=== PATIENT | male | born 1950 | race Hispanic/Latino ===

== ENCOUNTER 2017-03-06 08:29 | Inpatient (IN) | payer MEDICARE, BC ==
[2017-03-05 09:32] VITALS: BMI 35.9
[2017-03-06 09:28] LABS: BASO % 0.6 % (0.0-2.0); EOS # 0.2 K/uL (0.0-0.7); EOS % 3.5 % (0.0-4.0); HEMATOCRIT 43.2 % (35.0-51.0); LYMPH # 1.4 K/uL (1.0-4.3); LYMPH % 30.2 % (20.0-40.0); MEAN CORPUSCULAR HEMOGLOBIN 28.7 pg (27.0-31.0); MEAN CORPUSCULAR HGB CONC 32.8 g/dL (33.0-37.0); MONO # 0.5 K/uL (0.0-0.8); MONO % 9.8 % (0.0-10.0); NRBC % 0.1 % (0.0-2.0); RED CELL DISTRIBUTION WIDTH 13.5 % (11.5-14.5); WHITE BLOOD COUNT 4.8 K/uL (4.8-10.8)
--- NOTE | 2017-03-06 09:28 | RAD ---
HISTORY: STAT CXR DONE IN [facility] COMPARISON: 07/01/2016 TECHNIQUE: Chest PA and lateral FINDINGS: LUNGS: Blunted left costophrenic angle suggestive for small effusion with adjacent left basilar airspace opacity which may represent mild atelectasis and or infiltrate versus additional etiology. Clinical correlation. Mild venous congestion. Mild nodularity in the lateral aspect of the left midlung zone. PLEURA: As above. CARDIOVASCULAR: Normal. OSSEOUS STRUCTURES: Degenerative changes in the spine with paravertebral osteophytes. VISUALIZED UPPER ABDOMEN: Normal. OTHER FINDINGS: None. IMPRESSION: Blunted left costophrenic angle suggestive for small effusion with adjacent left basilar airspace opacity which may represent mild atelectasis and or infiltrate versus additional etiology. Clinical correlation. Mild venous congestion. Mild nodularity in the lateral aspect of the left midlung zone.
[2017-03-06 09:33] LABS: CHLORIDE 97 mmol/L (98-107); POTASSIUM 4.4 mmol/L (3.6-5.2); SODIUM 137 mmol/L (132-148)
[2017-03-06 09:36] LABS: BLOOD UREA NITROGEN 31 mg/dL (9-20); CARBON DIOXIDE 31 mmol/L (22-30); GFR AFRICAN-AMERICAN > 60; GLUCOSE,RANDOM 161 mg/dL (75-110)
[2017-03-06 09:37] LABS: CALCIUM 8.5 mg/dl (8.6-10.4); MEAN CELL VOLUME 87.4 fL (80.0-94.0)
[2017-03-06] MEDS ORDERED: cefTRIAXone IV 1 gm in Dextros 50 ML IVPB ONE (11:02)
[2017-03-06] MEDS ORDERED: Etomidate 20 mg/10ml Inj IV ONE ×2 (11:02→11:40)
[2017-03-06] MEDS ORDERED: Lactated Ringer's 1,000 ML IV ONE (11:02)
[2017-03-06] MEDS ORDERED: HYDROmorphone 0.5 mg/0.5 ml ISec IVP PRN (12:11)
--- NOTE | 2017-03-06 14:36 | HP ---
A very pleasant gentleman, 66. 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 He is currently actively on a morphine pump and he actively takes OxyContin for breakthrough pain. He is here today for a TURP. He is in urinary retention. Some of it is obstructive visualization of the prostate and some of it was from all the medication he takes as well. We have discussed options. However, he does have a visually occlusive prostate and, therefore, after discussing options we are bringing him to the hospital today for a TURP. I have discussed with him the option and the possibility for a PVP GreenLight laser TURP, but given h is medical history and the postulation for cancellation and the risks associated with this, we are pl anning for just a regular electrical TURP. I discussed the benefits. I discussed also the other concern about tissue typing, and that is where we can get tissue. So after discussing those options, he is here for a TURP. I have explained to the patient also the plan that he will not have fluid when he ejaculates. I disc ussed risks of bladder neck contractures. We discussed very many options. After all those options a re discussed, he is here. I discussed also pain management in the postoperative period and my concer ns. Socially, he has a significant other female that I have spoken to. He has a daughter or maybe even o ther children, but I do not know their exact relationship. 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 He seems to be in a better control situation now, but sti ll very heavily dependent on narcotic use, but he does have pain management rather than other doctors , including myself, writing him medications. MEDICATIONS: See the list on the chart. ALLERGIES: ____. REVIEW OF SYSTEMS: Listed above, otherwise noncontributory. SOCIAL HISTORY: Essentially unremarkable other than mentioned above. PHYSICAL EXAMINATION: GENERAL: Well-nourished male, in no apparent distress. VITAL SIGNS: Within normal limits. LUNGS: ____. ABDOMEN: Overall soft, nontender. No flank mass appreciated. GENITOURINARY: He has a normal phallus without discharge. No testicular mass. RECTAL: A 30-gram prostate, soft and smooth. LABORATORIES: See chart. DIAGNOSES: Urinary retention, voiding dysfunction, decreased flow of stream, incomplete bladder empt sarah, and really a lot of irritative and obstructive complaints. We discussed options with the patient. I explained to the patient that some of it may be obstructive prostate, some of it is medications. He does not see himself getting off the medications, although the hope is just by opening the prostate, just even almost like in a female with Crede maneuvers, he will be able to empty his bladder better and hopefully do better. I did discuss with him the expecta tion that he should not expect to ejaculate fluid; orgasm should not be changed. He is not overly ac tive anyway. After discussing all those options with the patient, he is here today for a TURP. In preparation, I explained to him our plans, our risks, benefits and alternatives. In preparation, also he has seen Paul Zelaya (traffic court magistrate). He has also seen Dr. Garcia (his medical doctor) in terms of judson felix, etc. So after all this, the plan is as follows. The patient will be given antibiotic prophyl axis. The patient will be given anesthesia and then we will bring him to the OR for a TURP. Then fu rther plans will follow. Will see what the pathology shows as well. Johnny Rayo MD cc: [id number] TT: 03/06/2017 14:35:45 mn
[2017-03-06] MEDS ORDERED: Lactated Ringer's 500 ML IV ONE (16:50)
--- NOTE | 2017-03-06 17:07 | OP ---
PROCEDURE DATE: 03/06/2017 PREOPERATIVE DIAGNOSES: Urinary retention, voiding dysfunction, decreased flow of stream, nocturia, incomplete bladder emptying, irritative and obstructive complaints. POSTOPERATIVE DIAGNOSES: Urinary retention, voiding dysfunction, decreased flow of stream, nocturia, incomplete bladder emptying, irritative and obstructive complaints. PROCEDURE: TURP, transurethral resection of the prostate with electrocautery. COMPLICATIONS: There were no complications. SPECIMENS: Prostate chips. BLOOD LOSS: Less than 25 mL. FINDINGS: Ureteral orifice identified pre and post-procedure. Post-procedure the patient is nicely w garcia open. We have a great resection. The findings were normal anterior urethra, no strictures. The veru is visually occlusive, only about 2-3 cm. (As mentioned in the history and physical and as I discussed with the patient, some of the component of voiding complaints are related to his use of narcotics, etc. Some of it is also obstructive prost ate by visualization.) After discussing all the options, he is here now above. The procedure itself went very well. I do want to mention that at the patient's right side, left side of the camera, towards the end, ther e was some venous bleeding that we tried cauterizing. Again, there is not much into the system and i t is not water, so it is not a problem either way, but there is some venous bleeding that we noted th at was just towards the end on the patient's right side, but at the termination of the procedure, see below, actually in the report, the bleeding actually is very well controlled and the urine by way of the irrigant is extremely clear by way of CBI. DESCRIPTION OF PROCEDURE: After obtaining informed consent and patient placed on the table, routine monitors placed, I explained to the patient the risks. Specifically discussed the possibility that i t will not work and it may not improve his urinary symptoms given the fact that some of it is not all obstructive, some of it may be related to his medication use. We explained that and we also explained the ejaculatory dysfunction. The patient placed on table, routine monitors placed. Timeouts were called to confirm the patient. The patient was given antibiotic prophylaxis via the urethra. We used continuous flow resectoscope. First we used the obturator to insert. We then inspected carefully. There were no strictures or scars. visually occlusive. We identified the ureteral orifice. Clear efflux. The bladder was inspected. We now turned our attention to the bladder neck, between 5 and 7. We then turned our attention back to the veru. Throughout the case, we kept identifying our landmarks. We opened the bladder neck widely between 5 and 7 and then subsequently go 7 and 11, and then 11 to 1, and we are wide open from the bladder neck out to the prostate. We now turned our attention anteriorly, from 11 to 1, and opened this nice and widely. Now further inspection reveals essentially no bleeding and he is fairly wide open. I decided to do a little extra resecting down to fiber, between 5 and 1 and between 7 and 11. As I do so, on the 7 to 11 side, there is a little bleeding noted, so I further inspected, I tried ca uterizing this. There is still a little blood. After inspecting carefully, I decided the best will be just to insert a Zayas catheter, will give clarisa e traction. When we do this, we irrigated out all the chips and further inspect. There is really actually less b leeding. We got control when we had cauterized. Everything is intact. All chemehuevi landmarks are garcia ntified. We irrigated all the chips out. I inserted a Zayas catheter, 24-Kazakh, with about 60 mL in the balloon and put on mild traction and I keep it a little full. We put the patient in lithotomy position and from lithotomy to supine position, connected to traction , and then I irrigated and it irrigates really nice and clearly. The patient brought to recovery room in stable condition, having tolerated the procedure without comp lication. ADDENDUM: What we are going to do is observe the patient, will see how he does and then we will see if we can discharge him home or we will keep him in the hospital, depending on how much blood is ther e present. Further plans will follow. I will also make sure that we send copies to the various doctors that are consultants. Johnny Rayo MD cc: [phone] TT: 03/06/2017 17:07:11 richa
[2017-03-06 17:17] VITALS: RESP 20
--- NOTE | 2017-03-06 18:10 | CP.PCM.CON ---
History of Present Illness - History of Present Illness History of Present Illness: 66 yo male with hx DM HTN CHF A Fib Obesity Failed back with lumbar radiculopathy COPD and depression admitted post op s/p TURP awake alert denies fever or chest pain Review of Systems - Review of Systems All systems: reviewed and no additional remarkable complaints except - Constitutional Constitutional: As Per HPI - EENT Eyes: absent: As Per HPI, Blind Spots, Blurred Vision, Change in Vision, Decreased Night Vision, Diplopia, Discharge, Dry Eye, Exophthalmos, Floaters, Irritation, Itchy Eyes, Loss of Peripheral Vision, Pain, Photophobia, Requires Corrective Lenses, Sees Flashes, Spots in Vision, Tunnel Vision, Other Visual Disturbances, Loss of Vision, Other Ears: absent: As Per HPI, Decreased Hearing, Ear Discharge, Ear Pain, Tinnitus, Abnormal Hearing, Disequilibrium, Dizziness, Other Nose/Mouth/Throat: absent: As Per HPI, Epistaxis, Nasal Congestion, Nasal Discharge, Nasal Obstruction, Nasal Trauma, Nose Pain, Post Nasal Drip, Sinus Pain, Sinus Pressure, Bleeding Gums, Change in Voice, Dental Pain, Dry Mouth, Dysphagia, Halitosis, Hoarsness, Lip Swelling, Mouth Lesions, Mouth Pain, Odynophagia, Sore Throat, Throat Swelling, Tongue Swelling, Facial Pain, Neck Pain, Neck Mass, Other - Cardiovascular Cardiovascular: absent: As Per HPI, Acrocyanosis, Chest Pain, Chest Pain at Rest , Chest Pain with Activity, Claudication, Diaphoresis, Dyspnea, Dyspnea on Exertion, Edema, Irregular Heart Rhythm, Pain Radiating to Arm/Neck/Jaw, Leg Edema, Leg Ulcers, Lightheadedness, Orthopnea, Palpitations, Paroxysmal Nocturnal Dyspnea, Pedal Edema, Radiating Pain, Rapid Heart Rate, Slow Heart Rate, Syncope, Other - Respiratory Respiratory: absent: As Per HPI, Cough, Dyspnea, Hemoptysis, Dyspnea on Exertion , Wheezing, Snoring, Stridor, Pain on Inspiration, Chest Congestion, Excessive Mucous Production, Change in Mucous Color, Pain with Coughing, Other - Gastrointestinal Gastrointestinal: absent: As Per HPI, Abdominal Pain, Belching, Bloating, Change in Bowel Habits, Change in Stool Character, Coffee Ground Emesis, Constipation, Cramping, Diarrhea, Dyspepsia, Dysphagia, Early Satiety, Excessive Flatus, Fecal Incontinence, Heartburn, Hematemesis, Hematochezia, Loose Stools, Melena, Nausea, Odynophagia, Temesmus, Vomiting, Other - Genitourinary Genitourinary: As Per HPI - Musculoskeletal Musculoskeletal: absent: As Per HPI, Abnormal Gait, Arthralgias, Atrophy, Back Pain, Deformity, Joint Swelling, Limited Range of Motion, Loss of Height, Muscle Cramps, Muscle Weakness, Myalgias, Neck Pain, Numbness, Radiating Pain into Limb, Stiffness, Tingling, Other - Integumentary Integumentary: absent: As Per HPI, Acne, Alopecia, Bleeding Lesions, Change in Hair, Change in Nails, Change in Pigmentation, Changing Lesions, Dry Skin, Erythema, Furuncle, Hirsutism, Lesions, New Lesions, Non-Healing Lesions, Photosensitivity, Pruritus, Rash, Skin Pain, Skin Ulcer, Sores, Striae, Swelling , Unusual Bruising, Wounds, Jaundice, Other - Neurological Neurological: absent: As Per HPI, Abnormal Gait, Abnormal Hearing, Abnormal Movements, Abnormal Speech, Behavioral Changes, Burning Sensations, Confusion, Convulsions, Disequilibrium, Dizziness, Numbness, Focal Weakness, Frequent Falls , Headaches, Lack of Coordination, Loss of Vision, Memory Loss, Paresthesias, Radicular Pain, Restless Legs, Sensory Deficit, Syncope, Tingling, Tremor, Vertigo, Weakness, Other Visual Disturbances, Other - Psychiatric Psychiatric: absent: As Per HPI, Abnormal Sleep Pattern, Anhedonia, Anxiety, Auditory Hallucinations, Behavioral Changes, Change in Appetite, Change in Libido, Confusion, Depression, Difficulty Concentrating, Hallucinations, Homicidal Ideation, Hopelessness, Irritability, Memory Loss, Mood Swings, Panic Attacks, Paranoia, Suicidal Ideation, Visual Hallucinations, Tactile Hallucinations, Other - Endocrine Endocrine: absent: As Per HPI, Change in Body Appearance, Change in Libido, Cold Intolorance, Deepening of Voice, Excessive Sweating, Fatigue, Flushing, Heat Intolorance, Increase in Ring/Shoe/Hat Size, Palpitations, Polydipsia, Polyphagia, Polyuria, Other - Hematologic/Lymphatic Hematologic: absent: As Per HPI, Easy Bleeding, Easy Bruising, Lymphadenopathy, Other Past Patient History - Infectious Disease Hx of Infectious Diseases: None - Tetanus Immunizations Tetanus Immunization: Unknown - Past Medical History & Family History Past Medical History?: Yes - Past Social History Smoking Status: Never Smoked - CARDIAC Hx Cardiac Disorders: Yes (A FIB) Hx Cardia Arrhythmia: Yes Hx Congestive Heart Failure: Yes Hx Hypercholesterolemia: Yes Hx Hypertension: Yes - PULMONARY Hx Respiratory Disorders: Yes Hx Chronic Obstructive Pulmonary Disease (COPD): Yes Hx Pneumonia: Yes (10 YEARS AGO) Other/Comment: blockage in right bronchial tube - NEUROLOGICAL Hx Neurological Disorder: Yes (PERIPHERAL NEUROPATHY) Other/Comment: hand tremors DUE TO NERVES - HEENT Hx HEENT Problems: No - RENAL Hx Chronic Kidney Disease: No - ENDOCRINE/METABOLIC Hx Endocrine Disorders: Yes Hx Diabetes Mellitus Type 2: Yes - HEMATOLOGICAL/ONCOLOGICAL Hx Blood Disorders: No - INTEGUMENTARY Hx Dermatological Problems: No - MUSCULOSKELETAL/RHEUMATOLOGICAL Hx Musculoskeletal Disorders: Yes Hx Arthritis: Yes Hx Back Pain: Yes Hx Fractures: Yes ( RIBS RIGHT ELBOW) Hx Osteoarthritis: Yes (both knees) Hx Spinal Stenosis: Yes Hx Unsteady Gait: (uses a cane) Other/Comment: Chronic Pain. - GASTROINTESTINAL Hx Gastrointestinal Disorders: Yes Hx Pancreatitis: Yes - GENITOURINARY/GYNECOLOGICAL Hx Genitourinary Disorders: Yes (+LEGIONELLA IN THE URINE,FREQUENCY,) Hx Prostate Problems: Yes (BPH) - PSYCHIATRIC Hx Psychophysiologic Disorder: Yes Hx Depression: Yes Hx Substance Use: Yes (quit) - SURGICAL HISTORY Hx Surgeries: Yes Hx Arthroscopy: Yes (BILAT KNEES) Hx Musculoskeletal Surgery: Yes (LUMBAR LAMINECTOMY) Hx Open Reduction Internal Fixation: Yes (RIGHT ELBOW) Other/Comment: INSERTION PAIN CONTROL STIMULATOR LUMBAR SINCE REMOVED - ANESTHESIA Hx Anesthesia: Yes Hx Anesthesia Reactions: No Hx Malignant Hyperthermia: No Has any member of the family had a problem w/ anesthesia?: No Meds Allergies/Adverse Reactions: Allergies Allergy/AdvReac Type Severity Reaction Status Date / Time No Known Allergies Allergy Verified 07/04/16 18:53 - Medications Medications: Current Medications Bupropion HCl (Wellbutrin Xl) 300 mg PO DAILY [facility] Carvedilol (Coreg) 25 mg PO BID [facility] Diazepam (Valium) 10 mg PO BID PRN PRN Reason: Anxiety Digoxin (Lanoxin) 0.125 mg PO DAILY@1800 [facility] Docusate Sodium (Colace) 100 mg PO TID [facility] Duloxetine HCl (Cymbalta) 60 mg PO BID [facility] Famotidine (Pepcid) 20 mg PO BID [facility] Furosemide (Lasix) 40 mg PO BID [facility] Cefazolin Sodium/Dextrose (Ancef Iv 1 Gm Duplex) 1 gm in 50 mls @ 100 mls/hr IVPB Q8H [facility] Metformin HCl (Glucophage) 850 mg PO BID [facility] Pregabalin (Lyrica) 225 mg PO QID [facility] Primidone (Mysoline) 250 mg PO TID [facility] Rosuvastatin Calcium (Crestor) 10 mg PO HS [facility] Spironolactone (Aldactone) 25 mg PO DAILY [facility] Tamsulosin HCl (Flomax) 0.4 mg PO DAILY [facility] Physical Exam - Constitutional Appears: Non-toxic, Chronically Ill - Head Exam Head Exam: NORMOCEPHALIC - Eye Exam Eye Exam: PERRL. absent: Scleral icterus - ENT Exam ENT Exam: Mucous Membranes Dry, Normal External Ear Exam - Neck Exam Neck exam: Negative for: Lymphadenopathy - Respiratory Exam Respiratory Exam: Decreased Breath Sounds, Rhonchi - Cardiovascular Exam Cardiovascular Exam: REGULAR RHYTHM, +S1, +S2 - GI/Abdominal Exam GI & Abdominal Exam: Diminished Bowel Sounds, Soft. absent: Tenderness - Rectal Exam Rectal Exam: Deferred - Exam Exam: NORMAL INSPECTION - Extremities Exam Extremities exam: Negative for: calf tenderness, pedal edema - Back Exam Back exam: absent: CVA tenderness (L), CVA tenderness (R) - Neurological Exam Neurological exam: Alert, CN II-XII Intact, Oriented x3, Reflexes Normal - Psychiatric Exam Psychiatric exam: Normal Mood - Skin Skin Exam: Dry, Intact Results - Vital Signs Recent Vital Signs: Last Vital Signs Temp 97.7 F 03/06/17 17:16 Pulse 54 L 03/06/17 17:16 Resp 20 03/06/17 17:16 BP 157/70 H 03/06/17 17:16 Pulse Ox 96 03/06/17 17:16 - Labs Result Diagrams: 03/06/17 09:15 03/06/17 09:15 Labs: Laboratory Results - last 24 hr 03/06/17 03/06/17 03/06/17 09:15 09:15 09:15 WBC 4.8 RBC 4.95 Hgb 14.2 Hct 43.2 MCV 87.4 D MCH 28.7 MCHC 32.8 L RDW 13.5 Plt Count 82 L D MPV 9.0 Neut % (Auto) 55.9 Lymph % (Auto) 30.2 [place] % (Auto) 9.8 Eos % (Auto) 3.5 Baso % (Auto) 0.6 Neut # 2.7 Lymph # 1.4 [place] # 0.5 Eos # 0.2 Baso # 0.0 Differential Comment PT 11.3 INR 1.0 APTT 38 H Sodium 137 Potassium 4.4 Chloride 97 L Carbon Dioxide 31 H Anion Gap 13 BUN 31 H Creatinine 0.9 Est GFR ( Amer) > 60 Est GFR (Non-Af Amer) > 60 POC Glucose (mg/dL) Random Glucose 161 H Calcium 8.5 L 03/06/17 17:24 WBC RBC Hgb Hct MCV MCH MCHC RDW Plt Count MPV Neut % (Auto) Lymph % (Auto) [place] % (Auto) Eos % (Auto) Baso % (Auto) Neut # Lymph # [place] # Eos # Baso # Differential Comment PT INR APTT Sodium Potassium Chloride Carbon Dioxide Anion Gap BUN Creatinine Est GFR ( Amer) Est GFR (Non-Af Amer) POC Glucose (mg/dL) 144 H Random Glucose Calcium Assessment & Plan - Assessment and Plan (Free Text) Assessment: s/p TURP multiple comorbidities rx for pain monitor closely
[2017-03-06] MEDS: Digoxin 125 mcg (0.125 mg) Tab PO SCH (19:11)
[2017-03-06] MEDS: ceFAZolin IV 1 gm in Dextrose 1 GM/50 ML BAG IVPB SCH (19:15)
[2017-03-07] MEDS: ceFAZolin IV 1 gm in Dextrose 1 GM/50 ML BAG IVPB SCH ×3 (02:04→17:29)
[2017-03-07 07:58] LABS: BASO % 0.3 % (0.0-2.0); EOS # 0.2 K/uL (0.0-0.7); EOS % 2.6 % (0.0-4.0); HEMATOCRIT 41.7 % (35.0-51.0); LYMPH # 1.1 K/uL (1.0-4.3); MEAN CELL VOLUME 86.8 fL (80.0-94.0); MEAN CORPUSCULAR HEMOGLOBIN 28.6 pg (27.0-31.0); MEAN PLATELET VOLUME 8.7 fL (7.2-11.7); MONO # 0.7 K/uL (0.0-0.8); MONO % 9.7 % (0.0-10.0); RED CELL DISTRIBUTION WIDTH 13.3 % (11.5-14.5); WHITE BLOOD COUNT 6.8 K/uL (4.8-10.8)
[2017-03-07 07:59] LABS: CHLORIDE 93 mmol/L (98-107); POTASSIUM 4.3 mmol/L (3.6-5.2); SODIUM 135 mmol/L (132-148)
[2017-03-07 08:01] LABS: AST/SGOT 22 U/L (17-59); BILIRUBIN,TOTAL 0.7 mg/dL (0.2-1.3); CARBON DIOXIDE 37 mmol/L (22-30); GFR AFRICAN-AMERICAN > 60
[2017-03-07 08:02] LABS: ALB/GLOB RATIO 1.2 (1.0-2.1); ALKALINE PHOSPHATASE 61 U/L (38-126); ALT/SGPT 21 U/L (21-72); BLOOD UREA NITROGEN 21 mg/dL (9-20); CALCIUM 7.9 mg/dl (8.6-10.4); GLUCOSE,RANDOM 127 mg/dL (75-110); TOTAL PROTEIN 6.4 g/dL (6.3-8.3)
[2017-03-07] MEDS: buPROPion 150 mg/24 Hours XL Tab PO SCH (09:39)
--- NOTE | 2017-03-07 15:57 | CP.PCM.PN ---
Subjective - Date & Time of Evaluation Date of Evaluation: 03/07/17 Time of Evaluation: 08:00 - Subjective Subjective: pain well controlled no fever has not been out of bed yet cbi in progress await ANDREW martinez Objective - Vital Signs/Intake and Output Vital Signs (last 24 hours): Temp Pulse Resp BP Pulse Ox 98.4 F 67 20 139/71 94 L 03/07/17 07:00 03/07/17 07:00 03/07/17 07:00 03/07/17 09:41 03/07/17 07:00 Intake and Output: 03/07/17 03/07/17 06:59 18:59 Intake Total 1750 7500 Output Total 4050 8100 Balance -2300 -600 - Medications Medications: Current Medications Bupropion HCl (Wellbutrin Xl) 300 mg PO DAILY [facility] Last Admin: 03/07/17 09:39 Dose: 300 mg Carvedilol (Coreg) 25 mg PO BID [facility] Last Admin: 03/07/17 09:41 Dose: 25 mg Diazepam (Valium) 10 mg PO BID PRN PRN Reason: Anxiety Last Admin: 03/07/17 11:10 Dose: 10 mg Digoxin (Lanoxin) 0.125 mg PO DAILY@1800 [facility] Last Admin: 03/06/17 19:11 Dose: 0.125 mg Docusate Sodium (Colace) 100 mg PO TID [facility] Last Admin: 03/07/17 14:23 Dose: 100 mg Duloxetine HCl (Cymbalta) 60 mg PO BID [facility] Last Admin: 03/07/17 09:39 Dose: 60 mg Famotidine (Pepcid) 20 mg PO BID [facility] Last Admin: 03/07/17 09:40 Dose: 20 mg Furosemide (Lasix) 40 mg PO BID [facility] Last Admin: 03/07/17 09:40 Dose: 40 mg Hydromorphone HCl (Dilaudid) 2 mg PO Q6H PRN PRN Reason: Pain, severe (8-10) Last Admin: 03/07/17 06:50 Dose: 2 mg Cefazolin Sodium/Dextrose (Ancef Iv 1 Gm Duplex) 1 gm in 50 mls @ 100 mls/hr IVPB Q8H [facility] Last Admin: 03/07/17 10:58 Dose: 100 mls/hr Metformin HCl (Glucophage) 850 mg PO BID [facility] Last Admin: 03/07/17 09:39 Dose: 850 mg Pregabalin (Lyrica) 225 mg PO QID [facility] Last Admin: 03/07/17 14:23 Dose: 225 mg Primidone (Mysoline) 250 mg PO TID [facility] Last Admin: 03/07/17 14:23 Dose: 250 mg Rosuvastatin Calcium (Crestor) 10 mg PO HS [facility] Last Admin: 03/06/17 21:16 Dose: 10 mg Spironolactone (Aldactone) 25 mg PO DAILY [facility] Last Admin: 03/07/17 09:40 Dose: 25 mg Tamsulosin HCl (Flomax) 0.4 mg PO DAILY [facility] Last Admin: 03/07/17 09:40 Dose: 0.4 mg - Labs Labs: 03/07/17 07:36 03/07/17 07:36 PT 11.3 SECONDS (9.7-12.2) 03/06/17 09:15 INR 1.0 03/06/17 09:15 APTT 38 SECONDS (21-34) H 03/06/17 09:15 - Constitutional Appears: Non-toxic, Chronically Ill - Head Exam Head Exam: NORMOCEPHALIC - Eye Exam Eye Exam: PERRL. absent: Scleral icterus - ENT Exam ENT Exam: Mucous Membranes Dry, Normal External Ear Exam - Neck Exam Neck Exam: absent: Lymphadenopathy - Respiratory Exam Respiratory Exam: Decreased Breath Sounds, Rhonchi - Cardiovascular Exam Cardiovascular Exam: REGULAR RHYTHM, +S1, +S2 - GI/Abdominal Exam GI & Abdominal Exam: Distended, Soft. absent: Tenderness - Rectal Exam Rectal Exam: Deferred - Exam Exam: NORMAL INSPECTION - Extremities Exam Extremities Exam: absent: Calf Tenderness, Pedal Edema - Back Exam Back Exam: absent: CVA tenderness (L), CVA tenderness (R) - Neurological Exam Neurological Exam: Alert, Awake, Oriented x3 - Psychiatric Exam Psychiatric exam: Normal Mood - Skin Skin Exam: Dry Assessment and Plan (1) BPH (benign prostatic hyperplasia) Status: Acute (2) BPH (benign prostatic hyperplasia) Status: Acute (3) CHF (congestive heart failure) Status: Chronic (4) Chronic pain Status: Chronic (5) Diabetes mellitus Status: Chronic (6) HTN (hypertension) Status: Chronic - Assessment and Plan (Free Text) Assessment: cont rx as per urology
[2017-03-07 17:29] VITALS: PULSE 65
[2017-03-07] MEDS: Digoxin 125 mcg (0.125 mg) Tab PO SCH (17:29)
[2017-03-08] MEDS: ceFAZolin IV 1 gm in Dextrose 1 GM/50 ML BAG IVPB SCH ×2 (01:32→10:08)
[2017-03-08 01:42] VITALS: O2SAT 96
[2017-03-08] MEDS: buPROPion 150 mg/24 Hours XL Tab PO SCH (10:05)
[2017-03-08 13:55] VITALS: BP 108/63
--- NOTE | 2017-03-08 13:56 | CP.PCM.CON ---
History of Present Illness - History of Present Illness History of Present Illness: S/P TURP: 66 y/o male: well known to my partner Dr. Concepcion: Hx of NICM with interval improvement to normal, P. AFIB, DM, Hx of Chronic narcotic use due to OA HIP; hx of morphine pump; Depression, * normal stress test in 2014 PMHX: as above PSHX: as above, no PCI/CABG ROS: depression, minimally active due to AO SOCHX: no TOB, recreational drugs; hx of ETOH in past Today: c/o dec urination, minimal SOB; no fever or CP; NSR on EKG Review of Systems - Review of Systems All systems: reviewed and no additional remarkable complaints except Past Patient History - Infectious Disease Hx of Infectious Diseases: None - Tetanus Immunizations Tetanus Immunization: Unknown - Past Medical History & Family History Past Medical History?: Yes - Past Social History Smoking Status: Never Smoked - CARDIAC Hx Cardiac Disorders: Yes (A FIB) Hx Cardia Arrhythmia: Yes Hx Congestive Heart Failure: Yes Hx Hypercholesterolemia: Yes Hx Hypertension: Yes - PULMONARY Hx Respiratory Disorders: Yes Hx Chronic Obstructive Pulmonary Disease (COPD): Yes Hx Pneumonia: Yes (10 YEARS AGO) Other/Comment: blockage in right bronchial tube - NEUROLOGICAL Hx Neurological Disorder: Yes (PERIPHERAL NEUROPATHY) Other/Comment: hand tremors DUE TO NERVES - HEENT Hx HEENT Problems: No - RENAL Hx Chronic Kidney Disease: No - ENDOCRINE/METABOLIC Hx Endocrine Disorders: Yes Hx Diabetes Mellitus Type 2: Yes - HEMATOLOGICAL/ONCOLOGICAL Hx Blood Disorders: No - INTEGUMENTARY Hx Dermatological Problems: No - MUSCULOSKELETAL/RHEUMATOLOGICAL Hx Falls: No - GASTROINTESTINAL Hx Gastrointestinal Disorders: Yes Hx Pancreatitis: Yes - GENITOURINARY/GYNECOLOGICAL Hx Genitourinary Disorders: Yes (+LEGIONELLA IN THE URINE,FREQUENCY,) Hx Prostate Problems: Yes (BPH) - PSYCHIATRIC Hx Substance Use: Yes (Quit) - SURGICAL HISTORY Hx Surgeries: Yes Hx Arthroscopy: Yes (BILAT KNEES) Hx Musculoskeletal Surgery: Yes (LUMBAR LAMINECTOMY) Hx Open Reduction Internal Fixation: Yes (RIGHT ELBOW) Other/Comment: INSERTION PAIN CONTROL STIMULATOR LUMBAR SINCE REMOVED - ANESTHESIA Hx Anesthesia: Yes Hx Anesthesia Reactions: No Hx Malignant Hyperthermia: No Has any member of the family had a problem w/ anesthesia?: No Meds Allergies/Adverse Reactions: Allergies Allergy/AdvReac Type Severity Reaction Status Date / Time No Known Allergies Allergy Verified 07/04/16 18:53 - Medications Medications: Current Medications Bupropion HCl (Wellbutrin Xl) 300 mg PO DAILY [facility] Last Admin: 03/08/17 10:05 Dose: 300 mg Carvedilol (Coreg) 25 mg PO BID [facility] Last Admin: 03/08/17 10:06 Dose: 25 mg Diazepam (Valium) 10 mg PO BID PRN PRN Reason: Anxiety Last Admin: 03/07/17 11:10 Dose: 10 mg Digoxin (Lanoxin) 0.125 mg PO DAILY@1800 [facility] Last Admin: 03/07/17 17:29 Dose: 0.125 mg Docusate Sodium (Colace) 100 mg PO TID [facility] Last Admin: 03/08/17 10:06 Dose: 100 mg Duloxetine HCl (Cymbalta) 60 mg PO BID [facility] Last Admin: 03/08/17 10:05 Dose: 60 mg Famotidine (Pepcid) 20 mg PO BID [facility] Last Admin: 03/08/17 10:03 Dose: 20 mg Furosemide (Lasix) 40 mg PO BID [facility] Last Admin: 03/08/17 10:06 Dose: 40 mg Furosemide (Lasix) 20 mg IVP STAT STA Stop: 03/08/17 13:45 Hydromorphone HCl (Dilaudid) 2 mg PO Q6H PRN PRN Reason: Pain, severe (8-10) Last Admin: 03/07/17 06:50 Dose: 2 mg Cefazolin Sodium/Dextrose (Ancef Iv 1 Gm Duplex) 1 gm in 50 mls @ 100 mls/hr IVPB Q8H [facility] Last Admin: 03/08/17 10:08 Dose: 100 mls/hr Metformin HCl (Glucophage) 850 mg PO BID [facility] Last Admin: 03/08/17 10:05 Dose: 850 mg Pregabalin (Lyrica) 225 mg PO QID [facility] Last Admin: 03/08/17 10:05 Dose: 225 mg Primidone (Mysoline) 250 mg PO TID [facility] Last Admin: 03/08/17 10:05 Dose: 250 mg Rosuvastatin Calcium (Crestor) 10 mg PO HS [facility] Last Admin: 03/07/17 21:35 Dose: 10 mg Spironolactone (Aldactone) 25 mg PO DAILY [facility] Last Admin: 05/06/17 10:06 Dose: 25 mg Tamsulosin HCl (Flomax) 0.4 mg PO DAILY [facility] Last Admin: 03/08/17 10:06 Dose: 0.4 mg Physical Exam - Head Exam Head Exam: ATRAUMATIC, NORMAL INSPECTION, NORMOCEPHALIC - Eye Exam Eye Exam: EOMI, Normal appearance - ENT Exam ENT Exam: Normal Oropharynx - Neck Exam Neck exam: Positive for: Full Rom. Negative for: Tenderness, Thyromegaly - Respiratory Exam Respiratory Exam: Clear to Auscultation Bilateral, NORMAL BREATHING PATTERN. absent: Rales, Rhonchi, Wheezes - Cardiovascular Exam Cardiovascular Exam: REGULAR RHYTHM, +S1, +S2. absent: +S4 - GI/Abdominal Exam GI & Abdominal Exam: Normal Bowel Sounds, Soft. absent: Tenderness - Extremities Exam Extremities exam: Positive for: calf tenderness, pedal edema (trace B/L ) - Neurological Exam Neurological exam: Alert, Oriented x3 - Psychiatric Exam Psychiatric exam: Depressed - Skin Skin Exam: Normal Color, Warm (mild venous changes B/L LE) Results - Vital Signs Recent Vital Signs: Last Vital Signs Temp 98.4 F 03/07/17 23:45 Pulse 67 03/07/17 23:45 Resp 20 03/07/17 23:45 BP 118/65 03/08/17 10:06 Pulse Ox 96 03/07/17 23:45 - Labs Result Diagrams: 03/07/17 07:36 03/07/17 07:36 Labs: Laboratory Results - last 24 hr 03/07/17 03/07/17 03/08/17 16:44 21:29 07:51 POC Glucose (mg/dL) 210 H 229 H 135 H 03/08/17 11:58 POC Glucose (mg/dL) 171 H Assessment & Plan - Assessment and Plan (Free Text) Assessment: 1. S/P TURP 2. known NICM: with interval improvement in EF to near normal on medical therapy 3. Normal stress test 2015: No current CP 4. P. AFIB: xarelto held prior to TURP; H/H stable; no gross bleed seen in URINE 5. Mild congestion; 6. Stable HTN 7. elevated sugars plan; continue current Rx with coreg, dig, lasix, aldactone: --> suggest IV lasix 20 x1 --> F/U recc per urology regards d/c planning --> Suggest resume xarelto 1 day after d/c if ok with urology at same dose 20mg daily. --> F/U with Dr. concepcion as outpatient on Fridaymarch 11 at [facility].
[2017-03-08 16:03] VITALS: PULSE 74; TEMP 98
--- NOTE | 2017-03-08 17:32 | CP.PCM.PN ---
Subjective - Date & Time of Evaluation Date of Evaluation: 03/08/17 Time of Evaluation: 11:00 - Subjective Subjective: Alert, oriented, NAD. Objective - Vital Signs/Intake and Output Vital Signs (last 24 hours): Temp Pulse Resp BP Pulse Ox 98 F 74 20 108/63 96 03/08/17 08:00 03/08/17 08:00 03/08/17 08:00 03/08/17 13:54 03/08/17 08:00 Intake and Output: 03/08/17 03/08/17 06:59 18:59 Intake Total 770 890 Output Total 2800 1200 Balance -2030 -310 - Labs Labs: 03/07/17 07:36 03/07/17 07:36 PT 11.3 SECONDS (9.7-12.2) 03/06/17 09:15 INR 1.0 03/06/17 09:15 APTT 38 SECONDS (21-34) H 03/06/17 09:15 Assessment and Plan - Assessment and Plan (Free Text) Assessment: Patient post TURP cleared by DR Rayo discharged home on po cipro and flomax. Voiding well, no distress. Advised to follow up with cardiology and urologyast in 1 week.
--- NOTE | 2017-03-09 13:04 | PCM.URO ---
Urology Progress Note - General General: No Complaints, Tolerating Diet - Subjective Abdominal Pain: No Flank Pain: No Nausea: No Vomiting: No Voiding Well: No Hematuria: No Dsypnea: No Chest Pain: No Fever & Chills: No - Objective Intake & Output: Intake & Output 03/08/17 03/09/17 03/09/17 18:59 06:59 18:59 Intake Total 890 Output Total 1200 Balance -310 Intake: Intake, IV Amount 50 Right Hand 50 Oral 840 Output: Urine 1200 Urethral (Zayas) 300 Urine, Voided 900 Other: # Bowel Movements 0 Vital Signs: Vital Signs - 24 hr 03/08/17 13:54 Blood Pressure 108/63 - Physical Exam Abdominal Exam: Soft, Non-Tender, Non-Distended Bowel Sounds: Normal Back: No CVA Tenderness Genitalia: Without Inflammation Urinary Catheter Draining Well: Yes Urine Color: Clear Extremities: Normal: Bilateral - Male Phallus: Normal Testes: Normal: Bilateral - Plan Catheter Care: Yes Ambulation - Out of Bed: Yes Additional Information: IMP: PROGRESSING WELL - Date & Time of Note Date: 03/07/17 Time: 13:30
== END 2017-03-08 16:00 | disposition home or self-care (01) | DRG 713 ==
LOC: C.9S 08:29 → EDSTATUS 10:00 → C.6T 17:07
PROVIDERS: ADMIT Urology; ATTEND Urology
PROC: 0VT08ZZ Resection of Prostate, Via Natural or Artificial Opening Endoscopic (ICD-10-PCS; principal; 2017-03-06 10:00)
DX: N40.1 Benign prostatic hyperplasia with lower urinary tract symptoms (principal); I42.8 Other cardiomyopathies; I11.0 Hypertensive heart disease with heart failure; E11.42 Type 2 diabetes mellitus with diabetic polyneuropathy; I50.9 Heart failure, unspecified; R33.8 Other retention of urine; I48.91 Unspecified atrial fibrillation; J44.9 Chronic obstructive pulmonary disease, unspecified; M17.0 Bilateral primary osteoarthritis of knee; R39.12 Poor urinary stream; R26.81 Unsteadiness on feet; F32.9 Major depressive disorder, single episode, unspecified; Z87.01 Personal history of pneumonia (recurrent); Z79.4 Long term (current) use of insulin

== ENCOUNTER 2017-09-18 09:28 | Day surgery (SDC) | payer MEDICARE, BC ==
[2017-09-17 09:12] VITALS: BMI 38.7
[2017-09-18] MEDS ORDERED: Lidocaine 2% w Epi 1:100,000 Inj IJ ONE (10:58)
[2017-09-18] MEDS ORDERED: Bupivacaine-Epi 0.25%-1:200,000 PF Inj IJ ONE ×2 (10:59→11:15)
[2017-09-18 11:07] VITALS: O2SAT 95
[2017-09-18] MEDS ORDERED: Lactated Ringer's 1,000 ML IV ONE (11:20)
[2017-09-18] MEDS ORDERED: Sodium Chloride 0.9% 20 ML IV ONE (11:38)
[2017-09-18] MEDS ORDERED: Bacitracin 500 Units/gm Oint Foilpak UD ONE (11:39)
[2017-09-18 13:59] VITALS: BP 156/78; PULSE 55; RESP 16; TEMP 97.6
--- NOTE | 2017-09-18 21:50 | OP ---
PROCEDURE DATE: 09/18/2017 PREOPERATIVE DIAGNOSIS: Neoplasm in the occipital scalp. POSTOPERATIVE DIAGNOSIS: Neoplasm in the occipital scalp. PROCEDURE PERFORMED: Wide and deep excision, (radical resection of a 4 cm mass of the occipital scalp). SURGEON: Anand Amezcua MD TYPE OF ANESTHESIA: General. ESTIMATED BLOOD LOSS: 50 mL. POSTOPERATIVE CONDITION: Stable. DESCRIPTION OF PROCEDURE: Patient was taken to the operating room, and after the scalp was shaved and prepped, local anesthesia was administered. A generous elliptical incision was made surrounding the mass. It was dissected free down to the scalp aponeurosis and removed. Bleeding was controlled using the Bovie. A branch of the temporal artery was repaired with Prolene. The wound was irrigated with copious amounts of saline solution. Generous tissue flaps were raised superiorly and inferiorly, and a greater than 30 cm2 advancement flap closure was performed by widely mobilizing and using multiple layers of heavy Monocryl, subcuticular Monocryl, and skin clips. Patient tolerated the procedure well, returned to recovery room in stable condition. Anand Amezcua MD
== END 2017-09-18 13:35 | disposition home or self-care (01) ==
LOC: C.SDS 09:28
PROVIDERS: ATTEND Surgery
DX: C44.42 Squamous cell carcinoma of skin of scalp and neck (principal)

== ENCOUNTER 2018-01-20 08:05 | Observation (INO) | payer MEDICARE, BC ==
[2018-01-20 08:05] VITALS: BMI 38.7
[2018-01-20 09:11] LABS: BASO % 0.3 % (0.0-2.0); EOS % 0.4 % (0.0-4.0); HEMOGLOBIN 12.2 g/dL (12.0-18.0); LYMPH # 0.8 K/uL (1.0-4.3); LYMPH % 7.6 % (20.0-40.0); MEAN CORPUSCULAR HEMOGLOBIN 28.8 pg (27.0-31.0); MEAN CORPUSCULAR HGB CONC 33.5 g/dL (33.0-37.0); MEAN PLATELET VOLUME 8.7 fL (7.2-11.7); MONO # 0.8 K/uL (0.0-0.8); MONO % 7.3 % (0.0-10.0); NEUT # 9.1 K/uL (1.8-7.0); NEUT % 84.4 % (50.0-75.0); NRBC % 0.1 % (0.0-2.0); RBC 4.22 Mil/uL (4.40-5.90); RED CELL DISTRIBUTION WIDTH 15.5 % (11.5-14.5); WHITE BLOOD COUNT 10.8 K/uL (4.8-10.8)
[2018-01-20 09:22] LABS: ALB/GLOB RATIO 0.9 (1.0-2.1); ALBUMIN 3.4 g/dL (3.5-5.0); ALT/SGPT 23 U/L (21-72); AST/SGOT 23 U/L (17-59); BLOOD UREA NITROGEN 15 mg/dL (9-20); CALCIUM 8.7 mg/dl (8.6-10.4); GFR AFRICAN-AMERICAN > 60; GFR NON-AFRICAN AMERICAN > 60
[2018-01-20 09:25] LABS: PLATELET COUNT 121 K/uL (130-400)
[2018-01-20 09:32] LABS: B-TYPE NATRIURETIC PEPTIDE 658 pg/mL (0-900)
[2018-01-20 10:00] LABS: BANDS 8 % (0-2); TOTAL CELLS COUNTED 100
[2018-01-20 10:01] LABS: LYMPHOCYTE 5 % (20-40); MONOCYTE 6 % (0-10); NEUTROPHIL 81 % (50-75); PLATELET ESTIMATE SLIGHTLY DECREASED (NORMAL)
--- NOTE | 2018-01-20 10:15 | RAD ---
PROCEDURE: CHEST RADIOGRAPH, 1 VIEW HISTORY: chest pain COMPARISON: 03/06/2017 FINDINGS: LUNGS: Clear. PLEURA: Minimal blunting of left costophrenic angle, likely chronic. Possible pleural thickening versus chronic pleural effusion. CARDIOVASCULAR: Normal. OSSEOUS STRUCTURES: No significant abnormalities. VISUALIZED UPPER ABDOMEN: Normal. OTHER FINDINGS: None. IMPRESSION: Minimal blunting left costophrenic angle. No acute infiltrate
--- NOTE | 2018-01-20 10:18 | RAD ---
PROCEDURE: Right Knee Radiographs. HISTORY: knee replacement COMPARISON: None. FINDINGS: BONES: No acute fracture. Status post right knee arthroplasty. No evidence of prosthesis loosening. JOINTS: Status post arthroplasty JOINT EFFUSION: None. OTHER FINDINGS: None. IMPRESSION: Right knee arthroplasty. No evidence of loosening. Otherwise unremarkable
[2018-01-20] MEDS ORDERED: Iodixanol 320 MG/ML 100 ML BOTTLE IV ONE (10:49)
--- NOTE | 2018-01-20 10:50 | VASCLAB ---
PROCEDURE: Right Lower Extremity Venous Duplex Exam. HISTORY: Leg pain PRIORS: None. TECHNIQUE: Right common femoral, femoral, popliteal and posterior tibial, peroneal and great saphenous veins were evaluated. Flow was assessed with color Doppler, compressibility, assessment of phasic flow and augmentation response. Report prepared by EARL Wiley FINDINGS: RIGHT: 1. Common Femoral Vein: 1.1. Compressibility - Fully compressible: Thrombus - None: Flow - Phasic: Augmentation -Normal: Reflux - None. 2. Femoral Vein: 2.1. Compressibility - Fully compressible: Thrombus - None: Flow - Phasic: Augmentation -Normal: Reflux - None. 3. Popliteal Vein: 3.1. Compressibility - Fully compressible: Thrombus - None: Flow - Phasic: Augmentation -Normal: Reflux - None. 4. Posterior Tibial Vein: 4.1. Compressibility - Fully compressible: Thrombus - None: Flow - Phasic: Augmentation -Normal: Reflux - None. 5. Peroneal Vein: 5.1. Compressibility - Fully compressible: Thrombus - None: Flow - Phasic: Augmentation -Normal: Reflux - None. 6. Great Saphenous Vein: 6.1. Compressibility - Fully compressible: Thrombus -None: Flow - Phasic: Augmentation - Normal: Reflux - None. OTHER FINDINGS: IMPRESSION: No evidence of deep or superficial vein thrombosis of the right lower extremity with excellent venous flow. Normal valve function noted of the right side. Normal venous flow noted in the left common femoral vein.
--- NOTE | 2018-01-20 11:05 | C.PDOC ---
History Of Present Illness 67-year-old male, had a knee replacement 12/[address] Adalid Lopez in [place], states [facility] and stayed there until 01/10, since then, he has been having ongoing knee pain unrelieved with 30mg of Oxycodone. Patient also developed intermittent chest pressure associated with shortness of breath and decreased appetite, resulting in him coming to ED today for evaluation Time Seen by Provider: 01/20/18 08:12 Chief Complaint (Nursing): Chest Pain History Per: Patient History/Exam Limitations: no limitations Onset/Duration Of Symptoms: Days Current Symptoms Are (Timing): Still Present Severity: Moderate Past Medical History Reviewed: Historical Data, Nursing Documentation, Vital Signs Vital Signs: Last Vital Signs Temp 98.1 F 01/20/18 17: Pulse 77 01/20/18 17:26 Resp 20 01/20/18 17:26 BP 133/74 01/20/18 17:26 Pulse Ox 96 01/20/18 17:26 - Medical History PMH: Arthritis, Atrial Fibrillation, Back Problems, Cardia Arrhythmia (atrial fib), CHF, COPD, Depression, Diabetes, Fractures ( RIBS RIGHT ELBOW), HTN, Hypercholesterolemia, Pneumonia (10 YEARS AGO), Chronic Pain Surgical History: Back Surgery (MULTILEVEL DISC HERNIATIONS,), Endoscopy - [facility] Procedures CLOSED ENDOSCOPIC BIOPSY OF LUNG (03/16/13) DESTRUCT-KNEE LESION NEC (10/19/03) EXCIS KNEE SEMILUN CARTL (10/19/03) EXCISION OF DESCENDING COLON, ENDO, DIAGN (01/22/16) INJECT STEROID (10/09/04) INJECTION INTO JOINT (10/09/04) LYMPHATIC STRUCT BIOPSY (03/16/13) NEBULIZER THERAPY (08/03/13) OCCUPATIONAL THERAPY (08/03/13) PHYSICAL THERAPY NEC (08/03/13) PSYCHIAT DRUG THERAP NEC (09/28/12) RESECTION OF PROSTATE, ENDO (03/06/17) Family History: States: No Known Family Hx - Social History Hx Tobacco Use: No Hx Alcohol Use: No Hx Substance Use: Yes (Quit) - Immunization History Hx Tetanus Toxoid Vaccination: No Hx Influenza Vaccination: No Hx Pneumococcal Vaccination: No Review Of Systems Except As Marked, All Systems Reviewed And Found Negative. Constitutional: Negative for: Fever Cardiovascular: Positive for: Chest Pain Respiratory: Positive for: Shortness of Breath Gastrointestinal: Negative for: Vomiting Musculoskeletal: Positive for: Other (R knee pain). Negative for: Neck Pain, Back Pain Neurological: Negative for: Weakness, Numbness, Headache, Dizziness Physical Exam - Physical Exam Appears: Non-toxic, No Acute Distress Skin: Normal Color, Warm, Dry, No Rash Head: Normacephalic Eye(s): bilateral: PERRL Nose: Normal, No Flaring Oral Mucosa: Moist Lips: Normal Appearing Neck: Normal ROM Chest: Symmetrical Cardiovascular: Rhythm Regular, No Murmur Respiratory: Normal Breath Sounds, No Decreased Breath Sounds, No Accessory Muscle Use Gastrointestinal/Abdominal: Soft, No Tenderness Extremity: Capillary Refill (<2 seconds), No Deformity, Other (R knee: healed incision scar.) Neurological/Psych: Oriented x3, Normal Speech ED Course And Treatment - Laboratory Results Result Diagrams: 01/20/18 08:51 01/20/18 08:51 ECG: Interpreted By Me, Viewed By Me ECG Rhythm: Sinus Rhythm ECG Interpretation: No Acute Changes Rate From EC O2 Sat by Pulse Oximetry: 95 (RA) Pulse Ox Interpretation: Normal Medical Decision Making Medical Decision Making: Impression Knee pain, Chest pain. Plan: * CT Chest * Labs * EKG * Chest X-Ray * XR R Knee * US Doppler * Reassess and Disposition Patient will be admitted to [facility] for chest pain and knee pain by Dr Gumaro Marcos Disposition Discussed With : Lashon Marcos Counseled Patient/Family Regarding: Studies Performed, Diagnosis - Disposition Disposition: HOSPITALIZED Disposition Time: 15:16 Condition: FAIR - Clinical Impression Clinical Impression: Chest pain, Knee pain - Scribe Statement The provider has reviewed the documentation as recorded by the Scribe (Malia Staples) All medical record entries made by the Scribe were at my direction and personally dictated by me. I have reviewed the chart and agree that the record accurately reflects my personal performance of the history, physical exam, medical decision making, and the department course for this patient. I have also personally directed, reviewed, and agree with the discharge instructions and disposition.
--- NOTE | 2018-01-20 13:35 | CT ---
PROCEDURE: CT Chest with contrast (Pulmonary Angiogram) HISTORY: chest pain and elevated dimer COMPARISON: 07/01/2016 TECHNIQUE: Axial computed tomography images were obtained of the chest in the pulmonary arterial phase of enhancement. Coronal and sagittal reformatted images were created and reviewed. Intravenous contrast dose: 100 mL Visipaque 320 Radiation dose: Total exam DLP = 617.87 mGy-cm. This CT exam was performed using one or more of the following dose reduction techniques: Automated exposure control, adjustment of the mA and/or kV according to patient size, and/or use of iterative reconstruction technique. FINDINGS: PULMONARY ARTERIES: Technically limited evaluation for pulmonary embolism. Inadequate enhancement of the pulmonary arteries for evaluation of segmental and subsegmental vessels. Central and lobar vessels are unremarkable, without evidence of filling defect. AORTA: No acute findings. No thoracic aortic aneurysm. LUNGS: Probable chronic fibrotic change right upper lobe unchanged from prior examination, associated with mild bronchiectasis. Chronic bandlike fibrotic scar in left lower lobe, unchanged from prior. No acute infiltrate. . PLEURAL SPACES: Unremarkable. No effusion or pneuomothorax. HEART: Unremarkable. No cardiomegaly. No significant pericardial effusion. LYMPH NODES: There is mild mediastinal and right hilar lymphadenopathy, of uncertain significance. Mildly enlarged nodes are seen in the pre and paratracheal spaces and right hilum. BONES, CHEST WALL: Multiple old left rib fractures, including the left 6th through 10th ribs. Old healed fracture left 5th rib. No acute fracture. . Bilateral gynecomastia. OTHER FINDINGS: Several large left upper pole renal cortical cyst unchanged from prior examination. Splenomegaly. The spleen measures 17 cm in greatest dimension. IMPRESSION: Limited examination. No evidence of large central pulmonary embolus involving main and a lobar vessels. Segmental and subsegmental pulmonary artery branches are suboptimally evaluated. Mild mediastinal and right hilar lymphadenopathy, nonspecific. Chronic pulmonary parenchymal changes as described. No acute infiltrate. Additional minor findings as above.
--- NOTE | 2018-01-20 15:58 | CP.PCM.HP ---
Present on Admission - Present on Admission Any Indicators Present on Admission: No Past Patient History - Infectious Disease Hx of Infectious Diseases: None - Tetanus Immunizations Tetanus Immunization: Unknown - Past Medical History & Family History Past Medical History?: Yes - Past Social History Smoking Status: Never Smoked - CARDIAC Hx Atrial Fibrillation: Yes Hx Cardia Arrhythmia: Yes (atrial fib) Hx Congestive Heart Failure: Yes Hx Hypercholesterolemia: Yes Hx Hypertension: Yes - PULMONARY Hx Chronic Obstructive Pulmonary Disease (COPD): Yes Hx Pneumonia: Yes (10 YEARS AGO) - NEUROLOGICAL Hx Neurological Disorder: Yes (PERIPHERAL NEUROPATHY) Other/Comment: hand tremors DUE TO NERVES - HEENT Hx HEENT Problems: No - RENAL Hx Chronic Kidney Disease: No - ENDOCRINE/METABOLIC Hx Endocrine Disorders: Yes Hx Diabetes Mellitus Type 2: Yes - HEMATOLOGICAL/ONCOLOGICAL Hx Blood Disorders: No - INTEGUMENTARY Other/Comment: Mass, scalp - MUSCULOSKELETAL/RHEUMATOLOGICAL Hx Arthritis: Yes Hx Fractures: Yes ( RIBS RIGHT ELBOW) - GENITOURINARY/GYNECOLOGICAL Hx Genitourinary Disorders: Yes (+LEGIONELLA IN THE URINE,FREQUENCY,) Hx Prostate Problems: Yes (BPH) - PSYCHIATRIC Hx Depression: Yes Hx Substance Use: Yes (Quit) - SURGICAL HISTORY Hx Surgeries: Yes Hx Arthroscopy: Yes (BILAT KNEES) Hx Musculoskeletal Surgery: Yes (LUMBAR LAMINECTOMY) Hx Open Reduction Internal Fixation: Yes (RIGHT ELBOW) Other/Comment: INSERTION PAIN CONTROL STIMULATOR LUMBAR - ANESTHESIA Hx Anesthesia: Yes Hx Anesthesia Reactions: No Hx Malignant Hyperthermia: No Meds Allergies/Adverse Reactions: Allergies Allergy/AdvReac Type Severity Reaction Status Date / Time No Known Allergies Allergy Verified 01/20/18 08:12 Physical Exam - Constitutional Appears: Well - Head Exam Head Exam: ATRAUMATIC, NORMAL INSPECTION, NORMOCEPHALIC - Eye Exam Eye Exam: EOMI, Normal appearance, PERRL Pupil Exam: NORMAL ACCOMODATION, PERRL - ENT Exam ENT Exam: Mucous Membranes Moist, Normal Exam - Neck Exam Neck exam: Positive for: Normal Inspection - Respiratory Exam Respiratory Exam: Decreased Breath Sounds - Cardiovascular Exam Cardiovascular Exam: REGULAR RHYTHM, +S1, +S2 - GI/Abdominal Exam GI & Abdominal Exam: Diminished Bowel Sounds, Soft - Rectal Exam Rectal Exam: Deferred Results - Vital Signs Recent Vital Signs: Last Vital Signs Temp 97.4 F L 01/20/18 08:06 Pulse 87 01/20/18 14:30 Resp 19 01/20/18 14:30 BP 140/71 01/20/18 14:30 Pulse Ox 95 01/20/18 15:40 - Labs Result Diagrams: 01/20/18 08:51 01/20/18 08:51 Labs: Laboratory Results - last 24 hr 01/20/18 01/20/18 01/20/18 08:51 08:51 08:51 WBC 10.8 D RBC 4.22 L Hgb 12.2 Hct 36.3 MCV 86.0 MCH 28.8 MCHC 33.5 RDW 15.5 H Plt Count 121 L D MPV 8.7 Neut % (Auto) 84.4 H Lymph % (Auto) 7.6 L [place] % (Auto) 7.3 Eos % (Auto) 0.4 Baso % (Auto) 0.3 Neut # (Auto) 9.1 H Lymph # (Auto) 0.8 L [place] # (Auto) 0.8 Eos # (Auto) 0.0 Baso # (Auto) 0.0 Neutrophils % (Manual) 81 H Band Neutrophils % 8 H Lymphocytes % (Manual) 5 L Monocytes % (Manual) 6 Platelet Estimate Slightly decreased L D-Dimer, Quantitative 1820 H Sodium 137 Potassium 3.6 Chloride 97 L Carbon Dioxide 26 Anion Gap 17 BUN 15 Creatinine 0.7 L Est GFR ( Amer) > 60 Est GFR (Non-Af Amer) > 60 Random Glucose 157 H Calcium 8.7 Total Bilirubin 0.7 AST 23 ALT 23 Alkaline Phosphatase 72 Troponin I 0.0120 NT-Pro-B Natriuret Pep 658 Total Protein 7.1 Albumin 3.4 L Globulin 3.6 Albumin/Globulin Ratio 0.9 L Assessment & Plan - Assessment and Plan (Free Text) Plan: D-dimer is 1820 Albumin is 3.4 Troponin 2 negative Aspirin Protonix Lovenox Vancomycin Cefazolin Follow-up with the orthopedic Follow-up with ID Follow-up with the cardiology
[2018-01-20] MEDS: HYDROmorphone 1 mg/ml ISec IVP PRN (19:03)
[2018-01-20 19:57] LABS: CK-MB 0.72 ng/mL (0.0-3.38)
[2018-01-20] MEDS ORDERED: cefTRIAXone 1 gm in Water For Injection 2.1 ML IM SCH (20:00)
[2018-01-20] MEDS ORDERED: Vancomycin 1 gm/NS 200 ml 1 GM/200 ML BAG IVPB SCH (21:00)
[2018-01-20] MEDS: ceFAZolin IV 1 gm in Dextrose 1 GM/50 ML BAG IVPB SCH (21:51)
[2018-01-20] MEDS: Vancomycin 1 gm/NS 200 ml 1 GM/200 ML BAG IVPB SCH (22:29)
[2018-01-21] MEDS: HYDROmorphone 1 mg/ml ISec IVP PRN (01:05)
[2018-01-21 01:50] LABS: CK-MB 0.63 ng/mL (0.0-3.38)
[2018-01-21] MEDS: ceFAZolin IV 1 gm in Dextrose 1 GM/50 ML BAG IVPB SCH ×3 (04:14→22:30)
--- NOTE | 2018-01-21 09:22 | CP.PCM.CON ---
History of Present Illness - History of Present Illness History of Present Illness: Orthopedic consultation Dr. Rubio 67M complains of right knee pain after TKR [address] Lopez at [place]. He says he was in rehab after the surgery, and then he has been home approx 1 week. He lives alone and has had difficulty getting around and cooking for himself. He says he was feeling weak and shaky and came to the ER. He says he had a few days in the rehab that he did not have pain in his knee, but says in general the pain in knee is getting worse. Denies CP/SOB/dizziness at this time. he had stomach pain and nausea after dilaudid. He has been ambulating with walker. Review of Systems - Review of Systems All systems: reviewed and no additional remarkable complaints except - Constitutional Additional comments: no fevers - Cardiovascular Cardiovascular: As Per HPI - Respiratory Respiratory: As Per HPI - Gastrointestinal Gastrointestinal: As Per HPI - Musculoskeletal Musculoskeletal: As Per HPI - Integumentary Additional comments: no drainage - Neurological Neurological: As Per HPI - Hematologic/Lymphatic Hematologic: absent: As Per HPI, Easy Bleeding, Easy Bruising, Lymphadenopathy, Other Past Patient History - Infectious Disease Hx of Infectious Diseases: None - Tetanus Immunizations Tetanus Immunization: Unknown - Past Medical History & Family History Past Medical History?: Yes Past Family History: Reviewed and not pertinent - Past Social History Smoking Status: Never Smoked - CARDIAC Hx Atrial Fibrillation: Yes Hx Cardia Arrhythmia: Yes (atrial fib) Hx Congestive Heart Failure: Yes Hx Hypercholesterolemia: Yes Hx Hypertension: Yes - PULMONARY Hx Chronic Obstructive Pulmonary Disease (COPD): Yes Hx Pneumonia: Yes (10 YEARS AGO) - NEUROLOGICAL Hx Neurological Disorder: Yes (PERIPHERAL NEUROPATHY) Other/Comment: hand tremors DUE TO NERVES - HEENT Hx HEENT Problems: No - RENAL Hx Chronic Kidney Disease: No - ENDOCRINE/METABOLIC Hx Endocrine Disorders: Yes Hx Diabetes Mellitus Type 2: Yes - HEMATOLOGICAL/ONCOLOGICAL Hx Blood Disorders: No - INTEGUMENTARY Other/Comment: Mass, scalp - MUSCULOSKELETAL/RHEUMATOLOGICAL Hx Arthritis: Yes Hx Fractures: Yes ( RIBS RIGHT ELBOW) - GENITOURINARY/GYNECOLOGICAL Hx Genitourinary Disorders: Yes (+LEGIONELLA IN THE URINE,FREQUENCY,) Hx Prostate Problems: Yes (BPH) - PSYCHIATRIC Hx Depression: Yes Hx Substance Use: Yes (Quit) - SURGICAL HISTORY Hx Surgeries: Yes Hx Arthroscopy: Yes (BILAT KNEES) Hx Musculoskeletal Surgery: Yes (LUMBAR LAMINECTOMY) Hx Open Reduction Internal Fixation: Yes (RIGHT ELBOW) Other/Comment: INSERTION PAIN CONTROL STIMULATOR LUMBAR - ANESTHESIA Hx Anesthesia: Yes Hx Anesthesia Reactions: No Hx Malignant Hyperthermia: No Meds Allergies/Adverse Reactions: Allergies Allergy/AdvReac Type Severity Reaction Status Date / Time No Known Allergies Allergy Verified 01/20/18 08:12 - Medications Medications: Current Medications Aspirin (Aspirin) 325 mg PO DAILY [facility] Diazepam (Valium) 10 mg PO BID [facility] Enoxaparin Sodium (Lovenox) 40 mg SC DAILY [facility] Cefazolin Sodium/Dextrose (Ancef Iv 1 Gm Duplex) 1 gm in 50 mls @ 100 mls/hr IVPB Q8H [facility] PRN Reason: UD Last Admin: 01/21/18 04:14 Dose: 100 mls/hr Vancomycin/Sodium Chloride (Vancomycin 1 Gm/Ns 200 Ml) 1 gm in 200 mls @ 133 mls/hr IVPB Q24H [facility] PRN Reason: Protocol Stop: 01/25/18 22:01 Last Admin: 01/20/18 22:29 Dose: 133 mls/hr Metformin HCl (Glucophage) 850 mg PO BID [facility] Ondansetron HCl (Zofran Inj) 4 mg IVP Q6H PRN PRN Reason: Nausea/Vomiting Last Admin: 01/20/18 21:53 Dose: 4 mg Oxycodone HCl (Oxycodone Immediate Release Tab) 20 mg PO Q6 PRN PRN Reason: Pain, severe (8-10) Pantoprazole Sodium (Protonix Ec Tab) 40 mg PO DAILY [facility] Physical Exam - Constitutional Appears: Well, No Acute Distress Additional comments: patient appears shaky, says it is due to his nerves - Head Exam Head Exam: ATRAUMATIC - Neck Exam Neck exam: Positive for: Full Rom, Normal Inspection - Respiratory Exam Respiratory Exam: NORMAL BREATHING PATTERN - Cardiovascular Exam Additional comments: +DP/PT pulses - Extremities Exam Additional comments: slight gapping to valgus stress noted - Expanded Lower Extremities Exam Right Lower Leg Exam: swelling (mild residual swelling, as expected s/p TKR, ROM 0- 110. sensation intact. No erythema, minimally warm (as expected)) Ankle exam: FULL ROM, NORMAL INSPECTION - Neurological Exam Neurological exam: Alert, Oriented x3 - Psychiatric Exam Psychiatric exam: Normal Affect, Normal Mood - Skin Skin Exam: Dry, Intact (incision well healed, no erythema, dry), Normal Color, Warm Results - Vital Signs Recent Vital Signs: Last Vital Signs Temp 97.9 F 01/21/18 07:05 Pulse 78 01/21/18 08:07 Resp 18 01/21/18 07:05 BP 154/78 H 01/21/18 07:05 Pulse Ox 97 01/21/18 08:07 - Labs Result Diagrams: 01/20/18 08:51 01/20/18 08:51 Labs: Laboratory Results - last 24 hr 01/20/18 01/20/18 01/20/18 08:51 08:51 08:51 WBC 10.8 D RBC 4.22 L Hgb 12.2 Hct 36.3 MCV 86.0 MCH 28.8 MCHC 33.5 RDW 15.5 H Plt Count 121 L D MPV 8.7 Neut % (Auto) 84.4 H Lymph % (Auto) 7.6 L Nicholas % (Auto) 7.3 Eos % (Auto) 0.4 Baso % (Auto) 0.3 Neut # (Auto) 9.1 H Lymph # (Auto) 0.8 L Nicholas # (Auto) 0.8 Eos # (Auto) 0.0 Baso # (Auto) 0.0 Neutrophils % (Manual) 81 H Band Neutrophils % 8 H Lymphocytes % (Manual) 5 L Monocytes % (Manual) 6 Platelet Estimate Slightly decreased L D-Dimer, Quantitative 1820 H Sodium 137 Potassium 3.6 Chloride 97 L Carbon Dioxide 26 Anion Gap 17 BUN 15 Creatinine 0.7 L Est GFR ( Amer) > 60 Est GFR (Non-Af Amer) > 60 POC Glucose (mg/dL) Random Glucose 157 H Calcium 8.7 Total Bilirubin 0.7 AST 23 ALT 23 Alkaline Phosphatase 72 Total Creatine Kinase CK-MB (Mass) Troponin I 0.0120 NT-Pro-B Natriuret Pep 658 Total Protein 7.1 Albumin 3.4 L Globulin 3.6 Albumin/Globulin Ratio 0.9 L 01/20/18 01/20/18 01/20/18 17:20 19:22 21:27 WBC RBC Hgb Hct MCV MCH MCHC RDW Plt Count MPV Neut % (Auto) Lymph % (Auto) Nicholas % (Auto) Eos % (Auto) Baso % (Auto) Neut # (Auto) Lymph # (Auto) Nicholas # (Auto) Eos # (Auto) Baso # (Auto) Neutrophils % (Manual) Band Neutrophils % Lymphocytes % (Manual) Monocytes % (Manual) Platelet Estimate D-Dimer, Quantitative Sodium Potassium Chloride Carbon Dioxide Anion Gap BUN Creatinine Est GFR ( Amer) Est GFR (Non-Af Amer) POC Glucose (mg/dL) 160 H 197 H Random Glucose Calcium Total Bilirubin AST ALT Alkaline Phosphatase Total Creatine Kinase 22 L CK-MB (Mass) 0.72 Troponin I < 0.0120 NT-Pro-B Natriuret Pep Total Protein Albumin Globulin Albumin/Globulin Ratio 01/21/18 01/21/18 01:21 06:11 WBC RBC Hgb Hct MCV MCH MCHC RDW Plt Count MPV Neut % (Auto) Lymph % (Auto) Nicholas % (Auto) Eos % (Auto) Baso % (Auto) Neut # (Auto) Lymph # (Auto) Nicholas # (Auto) Eos # (Auto) Baso # (Auto) Neutrophils % (Manual) Band Neutrophils % Lymphocytes % (Manual) Monocytes % (Manual) Platelet Estimate D-Dimer, Quantitative Sodium Potassium Chloride Carbon Dioxide Anion Gap BUN Creatinine Est GFR ( Amer) Est GFR (Non-Af Amer) POC Glucose (mg/dL) 138 H Random Glucose Calcium Total Bilirubin AST ALT Alkaline Phosphatase Total Creatine Kinase < 20 L CK-MB (Mass) 0.63 Troponin I < 0.0120 NT-Pro-B Natriuret Pep Total Protein Albumin Globulin Albumin/Globulin Ratio - Impressions Impression: atient Name / ID : MELINA BOYKIN P / [id number] Exam Date : 01/20/2018 08:47:43 ( Approved ) Study Comment : Sex / Age : M / 67Y Creator : Rogelio Flores MD Dictator : Rogelio Flores MD Capacity Planning Engineer : Vending Machine Filler : Rogelio Flores MD Approver2 : Report Date : 01/20/2018 10:16:35 My Comment : PROCEDURE: Right Knee Radiographs. HISTORY: knee replacement COMPARISON: None. FINDINGS: BONES: No acute fracture. Status post right knee arthroplasty. No evidence of prosthesis loosening. JOINTS: Status post arthroplasty JOINT EFFUSION: None. OTHER FINDINGS: None. IMPRESSION: Right knee arthroplasty. No evidence of loosening. Otherwise unremarkable Assessment & Plan (1) Knee pain Assessment and Plan: 1 month s/p right total knee replacement with continued knee pain and deconditioning patient seen and examined with Dr. Rubio no clinical suspicion of infection of right knee ruled out for DVT RLE and PE by CT angio at this time, recommend PT/OT, VTE proph no intervention indicated at this time will check CT of knee doppler LLE as patient complains of calf pain patient can follow up in office of Dr. Rubio if he continues to have pain after completion of PT WBAT PT/OT ordered recommend tapering narcotics/pain mgmt referral. Patient should be weaned off of narcotics at one month post op TKR will see if patient has relief with non narcotics d/w Dr. Rubio, agrees with above Status: Acute (2) Status post total knee replacement Status: Acute
[2018-01-21] MEDS ORDERED: oxyCODONE 10 mg Immediate Release Tab PO PRN (09:38)
[2018-01-21] MEDS: Enoxaparin 40 mg Syringe SC SCH (09:55)
[2018-01-21] MEDS: Pantoprazole 40 mg EC Tab PO SCH (09:55)
[2018-01-21] MEDS: (Novolog) Insulin Aspart, Recombinant 100 u/ml 10 ml vial SC SCH ×3 (12:24→21:15)
[2018-01-21] MEDS ORDERED: Aluminum Hydroxide/Magnesium Hydroxide Susp (30 mL) PO ONE (14:00)
--- NOTE | 2018-01-21 15:06 | CT ---
PROCEDURE: CT right knee HISTORY: Right knee pain and S/P right knee replacement COMPARISON: None available TECHNIQUE: 2.5 mm contiguous axial sections were acquired through the right knee. Sagittal and coronal images were reformatted from the axial images. Total exam DLP: 414.10 mGy-cm. This CT exam was performed using 1 or more of the following dose reduction techniques: Automated exposure control, adjustment of the mA and/or kV according to patient size, and/or use of iterative reconstruction technique. FINDINGS: The patient is status post right knee arthroplasty. There is no acute osseous fracture. There is no periprosthetic lucency. There is no periprosthetic sclerosis. There is curvilinear calcifications seen adjacent to the superior pole of the patella of uncertain significance. There is curvilinear calcifications seen in the region of the tibial tuberosity, uncertain significance. There is a small joint effusion. IMPRESSION: No acute fracture. No evidence of prosthesis loosening. Small joint effusion.
[2018-01-21 15:56] VITALS: RESP 20
[2018-01-21] MEDS: oxyCODONE 10 mg Immediate Release Tab PO PRN ×2 (17:31→23:49)
[2018-01-21] MEDS: Digoxin 125 mcg (0.125 mg) Tab PO SCH (17:36)
--- NOTE | 2018-01-21 17:57 | CP.PCM.PN ---
Subjective - Date & Time of Evaluation Date of Evaluation: 01/21/18 Time of Evaluation: 12:20 - Subjective Subjective: clinically same Objective - Vital Signs/Intake and Output Vital Signs (last 24 hours): Temp Pulse Resp BP Pulse Ox 98.2 F 70 20 145/75 97 01/21/18 15:49 01/21/18 15:51 01/21/18 15:49 01/21/18 17:33 01/21/18 15:51 Intake and Output: 01/21/18 01/21/18 06:59 18:59 Intake Total 300 Output Total 100 300 Balance -100 0 - Medications Medications: Current Medications Acetaminophen (Tylenol 325mg Tab) 650 mg PO Q6 [facility] Last Admin: 01/21/18 12:27 Dose: 650 mg Aspirin (Aspirin) 325 mg PO DAILY [facility] Last Admin: 01/21/18 10:14 Dose: 325 mg Bupropion HCl (Wellbutrin Xl) 300 mg PO DAILY [facility] Carvedilol (Coreg) 25 mg PO BID [facility] Last Admin: 01/21/18 17:33 Dose: 25 mg Diazepam (Valium) 10 mg PO BID [facility] Last Admin: 01/21/18 17:33 Dose: 10 mg Digoxin (Digoxin) 0.125 mg PO DAILY@1800 [facility] Last Admin: 01/21/18 17:36 Dose: 0.125 mg Docusate Sodium (Colace) 100 mg PO TID [facility] Last Admin: 01/21/18 17:31 Dose: 100 mg Duloxetine HCl (Cymbalta) 60 mg PO BID [facility] Last Admin: 01/21/18 17:31 Dose: 60 mg Enoxaparin Sodium (Lovenox) 40 mg SC DAILY [facility] Last Admin: 01/21/18 09:55 Dose: 40 mg Famotidine (Pepcid) 20 mg PO DAILY [facility] Last Admin: 01/21/18 10:10 Dose: 20 mg Finasteride (Proscar) 5 mg PO DAILY [facility] Last Admin: 01/21/18 11:20 Dose: 5 mg Cefazolin Sodium/Dextrose (Ancef Iv 1 Gm Duplex) 1 gm in 50 mls @ 100 mls/hr IVPB Q8H [facility] PRN Reason: UD Last Admin: 01/21/18 12:25 Dose: 100 mls/hr Vancomycin/Sodium Chloride (Vancomycin 1 Gm/Ns 200 Ml) 1 gm in 200 mls @ 133 mls/hr IVPB Q24H [facility] PRN Reason: Protocol Stop: 01/25/18 22:01 Last Admin: 01/20/18 22:29 Dose: 133 mls/hr Insulin Aspart (Novolog) 0 unit SC ACHS [facility] PRN Reason: Protocol Last Admin: 01/21/18 17:28 Dose: Not Given Ketorolac Tromethamine (Toradol) 30 mg IVP Q6 PRN PRN Reason: Pain, moderate (4-7) Last Admin: 01/21/18 16:17 Dose: 30 mg Metformin HCl (Glucophage) 850 mg PO BID [facility] Ondansetron HCl (Zofran Inj) 4 mg IVP Q6H PRN PRN Reason: Nausea/Vomiting Last Admin: 01/21/18 09:55 Dose: 4 mg Oxycodone HCl (Oxycodone Immediate Release Tab) 20 mg PO Q6 PRN PRN Reason: Pain, severe (8-10) Last Admin: 01/21/18 17:31 Dose: 20 mg Pantoprazole Sodium (Protonix Ec Tab) 40 mg PO DAILY [facility] Last Admin: 01/21/18 09:55 Dose: 40 mg Pregabalin (Lyrica) 75 mg PO Q8 [facility] Last Admin: 01/21/18 14:42 Dose: 75 mg Primidone (Mysoline) 250 mg PO DAILY [facility] Last Admin: 01/21/18 14:38 Dose: Not Given Rosuvastatin Calcium (Crestor) 10 mg PO HS [facility] Spironolactone (Aldactone) 25 mg PO DAILY [facility] Last Admin: 01/21/18 10:10 Dose: 25 mg Tamsulosin HCl (Flomax) 0.4 mg PO DAILY [facility] Last Admin: 01/21/18 11:20 Dose: 0.4 mg - Labs Labs: 01/20/18 08:51 01/20/18 08:51 - Constitutional Appears: Well - Head Exam Head Exam: ATRAUMATIC, NORMAL INSPECTION, NORMOCEPHALIC - Eye Exam Eye Exam: EOMI, Normal appearance, PERRL Pupil Exam: NORMAL ACCOMODATION, PERRL - ENT Exam ENT Exam: Mucous Membranes Moist, Normal Exam - Neck Exam Neck Exam: Full ROM, Normal Inspection. absent: Lymphadenopathy - Respiratory Exam Respiratory Exam: Decreased Breath Sounds - Cardiovascular Exam Cardiovascular Exam: REGULAR RHYTHM, +S1, +S2 - GI/Abdominal Exam GI & Abdominal Exam: Soft, Diminished Bowel Sounds - Rectal Exam Rectal Exam: Deferred
[2018-01-21] MEDS: Vancomycin 1 gm/NS 200 ml 1 GM/200 ML BAG IVPB SCH (21:15)
--- NOTE | 2018-01-21 23:38 | CARD ---
APPROVED REPORT EKG Measurement Heart [id number] SD 160P48 [id number] <Conclusion> Sinus rhythm with premature atrial complexes Otherwise normal ECG
--- NOTE | 2018-01-21 23:38 | CARD ---
APPROVED REPORT EKG Measurement Heart [id number] CO 134P53 [id number] <Conclusion> Normal sinus rhythm Normal ECG
--- NOTE | 2018-01-22 01:38 | CON ---
DATE: REASON FOR CONSULTATION: Chest pain. HISTORY OF PRESENT ILLNESS: The patient is a 67 years old male who underwent total right knee replacement at [facility] on 12/18/2017 and after two days he was transferred to rehab and then stayed at home where he lives by himself. The patient presented because of chest pain that is left sided, sharp, nonradiating. The patient is unaware of any history of heart attack or coronary intervention in the past. The patient stated that he underwent cardiac catheterization by Dr. Ford, but required no coronary intervention. The patient follows with Dr. Zelaya as an outpatient. The patient has a history of laminectomy in 1998 and then 2010, he required morphine pump implanted on the right lower anterior abdominal wall and this pump was repositioned in the left sided abdominal wall few years later. The patient at this time denies any chest pain. SOCIAL HISTORY: The patient is nonsmoker. He lives by himself. MEDICATIONS: Aldactone 25 mg once a day, Ancef 1 gm intravenously every 8 hours, aspirin 325 mg once a day, Colace 100 mg t.i.d., Coreg 25 mg once a day, Crestor 10 mg once a day, digoxin 0.125 mg daily, Cymbalta 60 mg once a day, Lovenox 40 mg subcutaneously once a day, Protonix 20 mg subq once a day, Proscar 5 mg once a day, Pepcid 20 mg once a day, Valium 10 mg twice a day, Zofran 4 mg intravenously every 6 hours p.r.n. PAST MEDICAL HISTORY: The patient was told that he had atrial fibrillation and has congestive heart failure. The patient denies any history of stroke. PHYSICAL EXAMINATION: GENERAL: The patient is an elderly obese male who does not appear to be in acute distress. VITAL SIGNS: Blood pressure 154/78, heart rate 76, temperature 97.9, respirations 18. HEENT: Normocephalic. CHEST: Diminished breath sounds over the bases. HEART: S1, S2 regular. ABDOMEN: Soft. EXTREMITIES: Trace leg edema. LABORATORY DATA: SMA-7 showed sodium 137, potassium 3.6, chloride 97, CO2 26, glucose 157, BUN 15, creatinine 0.7. Three sets of troponin are negative. D-dimer is elevated at 1820. CBC; WBC 10.8, hemoglobin 12.2, hematocrit 36.3, platelet count 121,000. EKG revealed normal sinus rhythm. Chest CT angio, limited examination, no evidence of pulmonary embolus, segmental and subsegmental pulmonary arch branches suboptimally evaluated. Mild mediastinal and right hilar lymphadenopathy. Nonspecific chronic pulmonary parenchymal changes are described. No acute infiltrates. Venous Doppler of right lower extremity, no DVT. ASSESSMENT: 1. Chest pain, myocardial infraction ruled out. 2. History of paroxysmal atrial fibrillation. 3. History of congestive heart failure. 4. Status post right total knee replacement five weeks ago. 5. Chronic back pain, status post laminectomy in 1998. 6. Uncontrolled diabetes mellitus. 7. Thrombocytopenia. RECOMMENDATIONS: Continue current Aldactone 25 mg once a day, Ancef 1 gm intravenously every 8 hours, aspirin 325 mg once a day, Coreg 25 mg once a day, Crestor 10 mg once a day, digoxin 0.125 mg once a day, Lovenox 40 mg subcutaneously once a day, vancomycin 1 gm intravenously daily. Obtain an echocardiogram and TSH level. Dale Meyers MD
[2018-01-22] MEDS: oxyCODONE 10 mg Immediate Release Tab PO PRN (05:37)
[2018-01-22] MEDS: ceFAZolin IV 1 gm in Dextrose 1 GM/50 ML BAG IVPB SCH ×3 (05:46→21:39)
--- NOTE | 2018-01-22 08:28 | CP.PCM.PN ---
Subjective - Date & Time of Evaluation Date of Evaluation: 01/22/18 Time of Evaluation: 08:26 - Subjective Subjective: Patient states he feels better. Says he did better with PT yesterday. No new complaints. Review of Systems - Review of Systems All systems: reviewed and no additional remarkable complaints except - Cardiovascular Cardiovascular: UNREMARKABLE - Respiratory Respiratory: UNREMARKABLE - Musculoskeletal Musculoskeletal: As Par HPI - Integumentary Integumentary: UNREMARKABLE - Hematologic/Lymphatic Hematologic: UNREMARKABLE Objective - Vital Signs/Intake and Output Vital Signs (last 24 hours): Temp Pulse Resp BP Pulse Ox 98 F 82 20 155/72 H 97 01/22/18 07:30 01/22/18 07:30 01/22/18 07:30 01/22/18 07:30 01/22/18 07:30 Intake and Output: 01/22/18 01/22/18 06:59 18:59 Intake Total 160 Output Total 400 Balance -240 - Medications Medications: Current Medications Acetaminophen (Tylenol 325mg Tab) 650 mg PO Q6 [facility] Last Admin: 01/22/18 05:38 Dose: 650 mg Aspirin (Aspirin) 325 mg PO DAILY [facility] Last Admin: 01/21/18 10:14 Dose: 325 mg Bupropion HCl (Wellbutrin Xl) 300 mg PO DAILY [facility] Carvedilol (Coreg) 25 mg PO BID [facility] Last Admin: 01/21/18 17:33 Dose: 25 mg Diazepam (Valium) 10 mg PO BID [facility] Last Admin: 01/21/18 17:33 Dose: 10 mg Digoxin (Digoxin) 0.125 mg PO DAILY@1800 [facility] Last Admin: 01/21/18 17:36 Dose: 0.125 mg Docusate Sodium (Colace) 100 mg PO TID [facility] Last Admin: 01/21/18 17:31 Dose: 100 mg Duloxetine HCl (Cymbalta) 60 mg PO BID [facility] Last Admin: 01/21/18 17:31 Dose: 60 mg Enoxaparin Sodium (Lovenox) 40 mg SC DAILY [facility] Last Admin: 01/21/18 09:55 Dose: 40 mg Famotidine (Pepcid) 20 mg PO DAILY [facility] Last Admin: 01/21/18 10:10 Dose: 20 mg Finasteride (Proscar) 5 mg PO DAILY [facility] Last Admin: 01/21/18 11:20 Dose: 5 mg Cefazolin Sodium/Dextrose (Ancef Iv 1 Gm Duplex) 1 gm in 50 mls @ 100 mls/hr IVPB Q8H [facility] PRN Reason: UD Last Admin: 01/22/18 05:46 Dose: 100 mls/hr Vancomycin/Sodium Chloride (Vancomycin 1 Gm/Ns 200 Ml) 1 gm in 200 mls @ 133 mls/hr IVPB Q24H [facility] PRN Reason: Protocol Stop: 01/25/18 22:01 Last Admin: 01/21/18 21:15 Dose: 133 mls/hr Insulin Aspart (Novolog) 0 unit SC ACHS [facility] PRN Reason: Protocol Last Admin: 01/21/18 21:15 Dose: Not Given Ketorolac Tromethamine (Toradol) 30 mg IVP Q6 PRN PRN Reason: Pain, moderate (4-7) Last Admin: 01/21/18 21:11 Dose: 30 mg Metformin HCl (Glucophage) 850 mg PO BID [facility] Ondansetron HCl (Zofran Inj) 4 mg IVP Q6H PRN PRN Reason: Nausea/Vomiting Last Admin: 01/21/18 09:55 Dose: 4 mg Oxycodone HCl (Oxycodone Immediate Release Tab) 20 mg PO Q6 PRN PRN Reason: Pain, severe (8-10) Last Admin: 01/22/18 05:37 Dose: 20 mg Pantoprazole Sodium (Protonix Ec Tab) 40 mg PO DAILY [facility] Last Admin: 01/21/18 09:55 Dose: 40 mg Pregabalin (Lyrica) 75 mg PO Q8 [facility] Last Admin: 01/22/18 05:37 Dose: 75 mg Primidone (Mysoline) 250 mg PO DAILY [facility] Last Admin: 01/21/18 14:38 Dose: Not Given Rosuvastatin Calcium (Crestor) 10 mg PO HS [facility] Last Admin: 01/21/18 21:14 Dose: 10 mg Spironolactone (Aldactone) 25 mg PO DAILY [facility] Last Admin: 01/21/18 10:10 Dose: 25 mg Tamsulosin HCl (Flomax) 0.4 mg PO DAILY [facility] Last Admin: 01/21/18 11:20 Dose: 0.4 mg - Labs Labs: 01/20/18 08:51 01/20/18 08:51 - Constitutional Appears: Well, No Acute Distress - Head Exam Head Exam: ATRAUMATIC - Neck Exam Neck Exam: Full ROM, Normal Inspection - Respiratory Exam Respiratory Exam: NORMAL BREATHING PATTERN - Extremities Exam Additional comments: +ROM ankle/toes/knee, sensation intact +DP/PT pulses, calves soft NT neg homans - Neurological Exam Neurological Exam: Alert, Awake, Oriented x3 Neuro motor strength exam: Right Lower Extremity: 5 - Psychiatric Exam Psychiatric exam: Normal Affect, Normal Mood - Skin Skin Exam: Dry, Intact, Normal Color, Warm Assessment and Plan (1) Knee pain Assessment & Plan: improving PT/OT CT no evidence of loosening f/u as outpatient prn no orthopedic intervention indicated at this time d/w Dr. Rubio, agrees with above Status: Acute (2) Status post total knee replacement Status: Acute Radiology Interpretation - Radiology Interpretation #2 Interpretation: Patient Name / ID : MELINA BOYKIN / [id number] Exam Date : 01/21/2018 13:37:19 ( Approved ) Study Comment : Sex / Age : M / 67Y Creator : Rogelio Flores MD Dictator : Rogelio Flores MD Dredge Pipe Installer : Cosmetic Assembler : Rogelio Flores MD Approver2 : Report Date : 01/21/2018 14:59:53 My Comment : PROCEDURE: CT right knee HISTORY: Right knee pain and S/P right knee replacement COMPARISON: None available TECHNIQUE: 2.5 mm contiguous axial sections were acquired through the right knee. Sagittal and coronal images were reformatted from the axial images. Total exam DLP: 414.10 mGy-cm. This CT exam was performed using 1 or more of the following dose reduction techniques: Automated exposure control, adjustment of the mA and/or kV according to patient size, and/or use of iterative reconstruction technique. FINDINGS: The patient is status post right knee arthroplasty. There is no acute osseous fracture. There is no periprosthetic lucency. There is no periprosthetic sclerosis. There is curvilinear calcifications seen adjacent to the superior pole of the patella of uncertain significance. There is curvilinear calcifications seen in the region of the tibial tuberosity, uncertain significance. There is a small joint effusion. IMPRESSION: No acute fracture. No evidence of prosthesis loosening. Small joint effusion.
[2018-01-22] MEDS: (Novolog) Insulin Aspart, Recombinant 100 u/ml 10 ml vial SC SCH ×4 (08:30→21:46)
[2018-01-22] MEDS: buPROPion 150 mg/24 Hours XL Tab PO SCH ×2 (10:23→10:32)
[2018-01-22] MEDS: Enoxaparin 40 mg Syringe SC SCH (10:25)
[2018-01-22] MEDS: Pantoprazole 40 mg EC Tab PO SCH (10:27)
--- NOTE | 2018-01-22 11:30 | VASCLAB ---
PROCEDURE: Left Lower Extremity Venous Duplex Exam. HISTORY: Calf pain r/o DVT PRIORS: 01/20/2018, normal. TECHNIQUE: Left common femoral, femoral, popliteal and posterior tibial, peroneal and great saphenous veins were evaluated. Flow was assessed with color Doppler, compressibility, assessment of phasic flow and augmentation response. Report prepared by EARL Wiley FINDINGS: LEFT: 1. Common Femoral Vein: 1.1. Compressibility - Fully compressible: Thrombus - None : Flow - Phasic: Augmentation -Normal: Reflux - None. 2. Femoral Vein: 2.1. Compressibility - Fully compressible: Thrombus - None: Flow - Phasic: Augmentation -Normal: Reflux - None. 3. Popliteal Vein: 3.1. Compressibility - Fully compressible: Thrombus - None: Flow - Phasic: Augmentation -Normal: Reflux - None. 4. Posterior Tibial Vein: 4.1. Compressibility - Fully compressible: Thrombus - None: Flow - Phasic: Augmentation -Normal: Reflux - None. 5. Peroneal Vein: 5.1. Compressibility - Fully compressible: Thrombus - None: Flow - Phasic: Augmentation -Normal: Reflux - None. 6. Great Saphenous Vein: 6.1. Compressibility - Fully compressible: Thrombus - None: Flow - Phasic: Augmentation - Normal: Reflux - None. OTHER FINDINGS: IMPRESSION: No evidence of deep or superficial vein thrombosis of the left lower extremity with excellent venous flow. Normal valve function noted of the left side. Normal venous flow noted in the right common femoral vein.
--- NOTE | 2018-01-22 12:49 | CP.PCM.CON ---
Past Patient History - Infectious Disease Hx of Infectious Diseases: None - Tetanus Immunizations Tetanus Immunization: Unknown - Past Medical History & Family History Past Medical History?: Yes Past Family History: Reviewed and not pertinent - Past Social History Smoking Status: Never Smoked - CARDIAC Hx Congestive Heart Failure: Yes Hx Hypercholesterolemia: Yes Hx Hypertension: Yes - PULMONARY Hx Chronic Obstructive Pulmonary Disease (COPD): Yes - NEUROLOGICAL Hx Neurological Disorder: Yes (PERIPHERAL NEUROPATHY) Other/Comment: hand tremors DUE TO NERVES - HEENT Hx HEENT Problems: No - RENAL Hx Chronic Kidney Disease: No - ENDOCRINE/METABOLIC Hx Diabetes Mellitus Type 2: Yes - HEMATOLOGICAL/ONCOLOGICAL Hx Blood Disorders: No - INTEGUMENTARY Other/Comment: Mass, scalp - MUSCULOSKELETAL/RHEUMATOLOGICAL Hx Arthritis: Yes - GENITOURINARY/GYNECOLOGICAL Hx Genitourinary Disorders: Yes (+LEGIONELLA IN THE URINE,FREQUENCY,) Hx Prostate Problems: Yes (BPH) - PSYCHIATRIC Hx Depression: Yes Hx Substance Use: Yes (Quit) - SURGICAL HISTORY Hx Surgeries: Yes Hx Arthroscopy: Yes (BILAT KNEES) Hx Musculoskeletal Surgery: Yes (LUMBAR LAMINECTOMY) Hx Open Reduction Internal Fixation: Yes (RIGHT ELBOW) Other/Comment: INSERTION PAIN CONTROL STIMULATOR LUMBAR - ANESTHESIA Hx Anesthesia: Yes Hx Anesthesia Reactions: No Hx Malignant Hyperthermia: No Meds Allergies/Adverse Reactions: Allergies Allergy/AdvReac Type Severity Reaction Status Date / Time No Known Allergies Allergy Verified 01/20/18 08:12 - Medications Medications: Current Medications Acetaminophen (Tylenol 325mg Tab) 650 mg PO Q6 [facility] Last Admin: 01/22/18 12:22 Dose: 650 mg Aspirin (Aspirin) 325 mg PO DAILY [facility] Last Admin: 01/22/18 10:27 Dose: 325 mg Bupropion HCl (Wellbutrin Xl) 300 mg PO DAILY [facility] Last Admin: 01/22/18 10:32 Dose: 300 mg Carvedilol (Coreg) 25 mg PO BID [facility] Last Admin: 01/22/18 10:25 Dose: 25 mg Diazepam (Valium) 10 mg PO BID [facility] Last Admin: 01/22/18 12:23 Dose: 10 mg Digoxin (Digoxin) 0.125 mg PO DAILY@1800 [facility] Last Admin: 01/21/18 17:36 Dose: 0.125 mg Docusate Sodium (Colace) 100 mg PO TID [facility] Last Admin: 01/22/18 10:25 Dose: 100 mg Duloxetine HCl (Cymbalta) 60 mg PO BID [facility] Last Admin: 01/22/18 10:32 Dose: 60 mg Enoxaparin Sodium (Lovenox) 40 mg SC DAILY [facility] Last Admin: 01/22/18 10:25 Dose: 40 mg Famotidine (Pepcid) 20 mg PO DAILY [facility] Last Admin: 01/22/18 10:28 Dose: 20 mg Finasteride (Proscar) 5 mg PO DAILY [facility] Last Admin: 01/22/18 10:28 Dose: 5 mg Cefazolin Sodium/Dextrose (Ancef Iv 1 Gm Duplex) 1 gm in 50 mls @ 100 mls/hr IVPB Q8H [facility] PRN Reason: UD Last Admin: 01/22/18 05:46 Dose: 100 mls/hr Vancomycin/Sodium Chloride (Vancomycin 1 Gm/Ns 200 Ml) 1 gm in 200 mls @ 133 mls/hr IVPB Q24H [facility] PRN Reason: Protocol Stop: 01/25/18 22:01 Last Admin: 01/21/18 21:15 Dose: 133 mls/hr Insulin Aspart (Novolog) 0 unit SC ACHS [facility] PRN Reason: Protocol Last Admin: 01/22/18 12:21 Dose: 3 unit Ketorolac Tromethamine (Toradol) 30 mg IVP Q6 PRN PRN Reason: Pain, moderate (4-7) Last Admin: 01/21/18 21:11 Dose: 30 mg Metformin HCl (Glucophage) 850 mg PO BID [facility] Ondansetron HCl (Zofran Inj) 4 mg IVP Q6H PRN PRN Reason: Nausea/Vomiting Last Admin: 01/21/18 09:55 Dose: 4 mg Oxycodone HCl (Oxycodone Immediate Release Tab) 20 mg PO Q6 PRN PRN Reason: Pain, severe (8-10) Last Admin: 01/22/18 05:37 Dose: 20 mg Pantoprazole Sodium (Protonix Ec Tab) 40 mg PO DAILY [facility] Last Admin: 01/22/18 10:27 Dose: 40 mg Pregabalin (Lyrica) 75 mg PO Q8 [facility] Last Admin: 01/22/18 05:37 Dose: 75 mg Primidone (Mysoline) 250 mg PO DAILY [facility] Last Admin: 01/22/18 10:28 Dose: 250 mg Rosuvastatin Calcium (Crestor) 10 mg PO [facility] Last Admin: 01/21/18 21:14 Dose: 10 mg Spironolactone (Aldactone) 25 mg PO DAILY [facility] Last Admin: 01/22/18 10:27 Dose: 25 mg Tamsulosin HCl (Flomax) 0.4 mg PO DAILY [facility] Last Admin: 01/22/18 10:27 Dose: 0.4 mg Results - Vital Signs Recent Vital Signs: Last Vital Signs Temp 98 F 01/22/18 07:30 Pulse 82 01/22/18 07:30 Resp 20 01/22/18 07:30 BP 144/79 01/22/18 10:25 Pulse Ox 97 01/22/18 09:06 - Labs Result Diagrams: 01/20/18 08:51 01/20/18 08:51 Labs: Laboratory Results - last 24 hr 01/21/18 01/21/18 01/21/18 15:53 16:24 20:58 POC Glucose (mg/dL) 175 H 193 H TSH 3rd Generation 0.92 01/22/18 01/22/18 06:10 11:01 POC Glucose (mg/dL) 138 H 228 H TSH 3rd Generation
--- NOTE | 2018-01-22 14:01 | CP.PCM.PN ---
Subjective - Date & Time of Evaluation Date of Evaluation: 01/22/18 Time of Evaluation: 11:40 - Subjective Subjective: clinically same Objective - Vital Signs/Intake and Output Vital Signs (last 24 hours): Temp Pulse Resp BP Pulse Ox 98 F 82 20 144/79 97 01/22/18 07:30 01/22/18 07:30 01/22/18 07:30 01/22/18 10:25 01/22/18 09:06 Intake and Output: 01/22/18 01/22/18 06:59 18:59 Intake Total 160 Output Total 400 Balance -240 - Medications Medications: Current Medications Acetaminophen (Tylenol 325mg Tab) 650 mg PO Q6 [facility] Last Admin: 01/22/18 12:22 Dose: 650 mg Aspirin (Aspirin) 325 mg PO DAILY [facility] Last Admin: 01/22/18 10:27 Dose: 325 mg Bupropion HCl (Wellbutrin Xl) 300 mg PO DAILY [facility] Last Admin: 01/22/18 10:32 Dose: 300 mg Carvedilol (Coreg) 25 mg PO BID [facility] Last Admin: 01/22/18 10:25 Dose: 25 mg Diazepam (Valium) 10 mg PO BID [facility] Last Admin: 01/22/18 12:23 Dose: 10 mg Digoxin (Digoxin) 0.125 mg PO DAILY@1800 [facility] Last Admin: 01/21/18 17:36 Dose: 0.125 mg Docusate Sodium (Colace) 100 mg PO TID [facility] Last Admin: 01/22/18 13:50 Dose: 100 mg Duloxetine HCl (Cymbalta) 60 mg PO BID [facility] Last Admin: 01/22/18 10:32 Dose: 60 mg Enoxaparin Sodium (Lovenox) 40 mg SC DAILY [facility] Last Admin: 01/22/18 10:25 Dose: 40 mg Famotidine (Pepcid) 20 mg PO DAILY [facility] Last Admin: 01/22/18 10:28 Dose: 20 mg Finasteride (Proscar) 5 mg PO DAILY [facility] Last Admin: 01/22/18 10:28 Dose: 5 mg Cefazolin Sodium/Dextrose (Ancef Iv 1 Gm Duplex) 1 gm in 50 mls @ 100 mls/hr IVPB Q8H [facility] PRN Reason: UD Last Admin: 01/22/18 13:50 Dose: 100 mls/hr Vancomycin/Sodium Chloride (Vancomycin 1 Gm/Ns 200 Ml) 1 gm in 200 mls @ 133 mls/hr IVPB Q24H [facility] PRN Reason: Protocol Stop: 01/25/18 22:01 Last Admin: 01/21/18 21:15 Dose: 133 mls/hr Insulin Aspart (Novolog) 0 unit SC ACHS [facility] PRN Reason: Protocol Last Admin: 01/22/18 12:21 Dose: 3 unit Ketorolac Tromethamine (Toradol) 30 mg IVP Q6 PRN PRN Reason: Pain, moderate (4-7) Last Admin: 01/21/18 21:11 Dose: 30 mg Metformin HCl (Glucophage) 850 mg PO BID [facility] Ondansetron HCl (Zofran Inj) 4 mg IVP Q6H PRN PRN Reason: Nausea/Vomiting Last Admin: 01/21/18 09:55 Dose: 4 mg Oxycodone HCl (Oxycodone Immediate Release Tab) 20 mg PO Q6 PRN PRN Reason: Pain, severe (8-10) Last Admin: 01/22/18 05:37 Dose: 20 mg Pantoprazole Sodium (Protonix Ec Tab) 40 mg PO DAILY [facility] Last Admin: 01/22/18 10:27 Dose: 40 mg Pregabalin (Lyrica) 75 mg PO Q8 [facility] Last Admin: 01/22/18 13:50 Dose: 75 mg Primidone (Mysoline) 250 mg PO DAILY [facility] Last Admin: 01/22/18 10:28 Dose: 250 mg Rosuvastatin Calcium (Crestor) 10 mg PO HS [facility] Last Admin: 01/21/18 21:14 Dose: 10 mg Spironolactone (Aldactone) 25 mg PO DAILY [facility] Last Admin: 01/22/18 10:27 Dose: 25 mg Tamsulosin HCl (Flomax) 0.4 mg PO DAILY [facility] Last Admin: 01/22/18 10:27 Dose: 0.4 mg - Labs Labs: 01/20/18 08:51 01/20/18 08:51 - Constitutional Appears: Well - Head Exam Head Exam: ATRAUMATIC, NORMAL INSPECTION, NORMOCEPHALIC - Eye Exam Eye Exam: EOMI, Normal appearance, PERRL Pupil Exam: NORMAL ACCOMODATION, PERRL - ENT Exam ENT Exam: Mucous Membranes Moist, Normal Exam - Neck Exam Neck Exam: Full ROM, Normal Inspection. absent: Lymphadenopathy - Respiratory Exam Respiratory Exam: Decreased Breath Sounds - Cardiovascular Exam Cardiovascular Exam: REGULAR RHYTHM, +S1, +S2 - GI/Abdominal Exam GI & Abdominal Exam: Soft, Diminished Bowel Sounds - Rectal Exam Rectal Exam: Deferred
[2018-01-22] MEDS: Digoxin 125 mcg (0.125 mg) Tab PO SCH (17:25)
--- NOTE | 2018-01-22 18:58 | CP.PCM.CON ---
History of Present Illness - History of Present Illness History of Present Illness: 67-year-old male, had a knee replacement 12/[address] Adalid Lopez in [facility] [place] and stayed there until 01/10, since then, he has been having ongoing knee pain unrelieved with 30mg of Oxycodone. Patient also developed intermittent chest pressure associated with shortness of breath and decreased appetite, resulting in him coming to ED today for evaluation referred for ID eval of bandemia ? cellulitis R leg s/p right TKR - Medical History PMH: Arthritis, Atrial Fibrillation, Back Problems, Cardia Arrhythmia (atrial fib), CHF, COPD, Depression, Diabetes, Fractures ( RIBS RIGHT ELBOW), HTN, Hypercholesterolemia, Pneumonia (10 YEARS AGO), Chronic Pain Surgical History: Back Surgery (MULTILEVEL DISC HERNIATIONS,), Endoscopy Review of Systems - Constitutional Constitutional: As Per HPI - EENT Eyes: absent: As Per HPI, Blind Spots, Blurred Vision, Change in Vision, Decreased Night Vision, Diplopia, Discharge, Dry Eye, Exophthalmos, Floaters, Irritation, Itchy Eyes, Loss of Peripheral Vision, Pain, Photophobia, Requires Corrective Lenses, Sees Flashes, Spots in Vision, Tunnel Vision, Other Visual Disturbances, Loss of Vision, Other Ears: absent: As Per HPI, Decreased Hearing, Ear Discharge, Ear Pain, Tinnitus, Abnormal Hearing, Disequilibrium, Dizziness, Other Nose/Mouth/Throat: absent: As Per HPI, Epistaxis, Nasal Congestion, Nasal Discharge, Nasal Obstruction, Nasal Trauma, Nose Pain, Post Nasal Drip, Sinus Pain, Sinus Pressure, Bleeding Gums, Change in Voice, Dental Pain, Dry Mouth, Dysphagia, Halitosis, Hoarsness, Lip Swelling, Mouth Lesions, Mouth Pain, Odynophagia, Sore Throat, Throat Swelling, Tongue Swelling, Facial Pain, Neck Pain, Neck Mass, Other - Cardiovascular Cardiovascular: As Per HPI - Respiratory Respiratory: As Per HPI - Gastrointestinal Gastrointestinal: absent: As Per HPI, Abdominal Pain, Belching, Bloating, Change in Bowel Habits, Change in Stool Character, Coffee Ground Emesis, Constipation, Cramping, Diarrhea, Dyspepsia, Dysphagia, Early Satiety, Excessive Flatus, Fecal Incontinence, Heartburn, Hematemesis, Hematochezia, Loose Stools, Melena, Nausea, Odynophagia, Temesmus, Vomiting, Other - Genitourinary Genitourinary: absent: As Per HPI, Change in Urinary Stream, Difficulty Urinating, Dysuria, Flank Pain, Hematuria, Pyuria, Nocturia, Urinary Incontinence, Urinary Frequency, Urinary Hesitance, Urinary Urgency, Voiding Freq/Small Amts, Freq UTI, Hx Renal/Bladder Calculi, Hx /Renal Surgery, Bladder Distension, Other - Musculoskeletal Musculoskeletal: As Per HPI - Integumentary Integumentary: As Per HPI - Neurological Neurological: absent: As Per HPI, Abnormal Gait, Abnormal Hearing, Abnormal Movements, Abnormal Speech, Behavioral Changes, Burning Sensations, Confusion, Convulsions, Disequilibrium, Dizziness, Numbness, Focal Weakness, Frequent Falls , Headaches, Lack of Coordination, Loss of Vision, Memory Loss, Paresthesias, Radicular Pain, Restless Legs, Sensory Deficit, Syncope, Tingling, Tremor, Vertigo, Weakness, Other Visual Disturbances, Other - Psychiatric Psychiatric: absent: As Per HPI, Abnormal Sleep Pattern, Anhedonia, Anxiety, Auditory Hallucinations, Behavioral Changes, Change in Appetite, Change in Libido, Confusion, Depression, Difficulty Concentrating, Hallucinations, Homicidal Ideation, Hopelessness, Irritability, Memory Loss, Mood Swings, Panic Attacks, Paranoia, Suicidal Ideation, Visual Hallucinations, Tactile Hallucinations, Other - Endocrine Endocrine: absent: As Per HPI, Change in Body Appearance, Change in Libido, Cold Intolorance, Deepening of Voice, Excessive Sweating, Fatigue, Flushing, Heat Intolorance, Increase in Ring/Shoe/Hat Size, Palpitations, Polydipsia, Polyphagia, Polyuria, Other - Hematologic/Lymphatic Hematologic: absent: As Per HPI, Easy Bleeding, Easy Bruising, Lymphadenopathy, Other Past Patient History - Infectious Disease Hx of Infectious Diseases: None - Tetanus Immunizations Tetanus Immunization: Unknown - Past Medical History & Family History Past Medical History?: Yes Past Family History: Reviewed and not pertinent - Past Social History Smoking Status: Never Smoked - CARDIAC Hx Congestive Heart Failure: Yes Hx Hypercholesterolemia: Yes Hx Hypertension: Yes - PULMONARY Hx Chronic Obstructive Pulmonary Disease (COPD): Yes - NEUROLOGICAL Hx Neurological Disorder: Yes (PERIPHERAL NEUROPATHY) Other/Comment: hand tremors DUE TO NERVES - HEENT Hx HEENT Problems: No - RENAL Hx Chronic Kidney Disease: No - ENDOCRINE/METABOLIC Hx Diabetes Mellitus Type 2: Yes - HEMATOLOGICAL/ONCOLOGICAL Hx Blood Disorders: No - INTEGUMENTARY Other/Comment: Mass, scalp - MUSCULOSKELETAL/RHEUMATOLOGICAL Hx Arthritis: Yes - GENITOURINARY/GYNECOLOGICAL Hx Genitourinary Disorders: Yes (+LEGIONELLA IN THE URINE,FREQUENCY,) Hx Prostate Problems: Yes (BPH) - PSYCHIATRIC Hx Depression: Yes Hx Substance Use: Yes (Quit) - SURGICAL HISTORY Hx Surgeries: Yes Hx Arthroscopy: Yes (BILAT KNEES) Hx Musculoskeletal Surgery: Yes (LUMBAR LAMINECTOMY) Hx Open Reduction Internal Fixation: Yes (RIGHT ELBOW) Other/Comment: INSERTION PAIN CONTROL STIMULATOR LUMBAR - ANESTHESIA Hx Anesthesia: Yes Hx Anesthesia Reactions: No Hx Malignant Hyperthermia: No Meds Allergies/Adverse Reactions: Allergies Allergy/AdvReac Type Severity Reaction Status Date / Time No Known Allergies Allergy Verified 01/20/18 08:12 - Medications Medications: Current Medications Acetaminophen (Tylenol 325mg Tab) 650 mg PO Q6 [facility] Last Admin: 01/22/18 12:22 Dose: 650 mg Aspirin (Aspirin) 325 mg PO DAILY [facility] Last Admin: 01/22/18 10:27 Dose: 325 mg Bupropion HCl (Wellbutrin Xl) 300 mg PO DAILY [facility] Last Admin: 01/22/18 10:32 Dose: 300 mg Carvedilol (Coreg) 25 mg PO BID [facility] Last Admin: 01/22/18 17:25 Dose: 25 mg Diazepam (Valium) 10 mg PO BID [facility] Last Admin: 01/22/18 12:23 Dose: 10 mg Digoxin (Digoxin) 0.125 mg PO DAILY@1800 [facility] Last Admin: 01/22/18 17:25 Dose: 0.125 mg Docusate Sodium (Colace) 100 mg PO TID [facility] Last Admin: 01/22/18 17:26 Dose: 100 mg Duloxetine HCl (Cymbalta) 60 mg PO BID [facility] Last Admin: 01/22/18 17:26 Dose: 60 mg Enoxaparin Sodium (Lovenox) 40 mg SC DAILY [facility] Last Admin: 01/22/18 10:25 Dose: 40 mg Famotidine (Pepcid) 20 mg PO DAILY [facility] Last Admin: 01/22/18 10:28 Dose: 20 mg Finasteride (Proscar) 5 mg PO DAILY [facility] Last Admin: 01/22/18 10:28 Dose: 5 mg Cefazolin Sodium/Dextrose (Ancef Iv 1 Gm Duplex) 1 gm in 50 mls @ 100 mls/hr IVPB Q8H [facility] PRN Reason: UD Last Admin: 01/22/18 13:50 Dose: 100 mls/hr Vancomycin/Sodium Chloride (Vancomycin 1 Gm/Ns 200 Ml) 1 gm in 200 mls @ 133 mls/hr IVPB Q24H [facility] PRN Reason: Protocol Stop: 01/25/18 22:01 Last Admin: 01/21/18 21:15 Dose: 133 mls/hr Insulin Aspart (Novolog) 0 unit SC ACHS [facility] PRN Reason: Protocol Last Admin: 01/22/18 17:30 Dose: 2 unit Ketorolac Tromethamine (Toradol) 30 mg IVP Q6 PRN PRN Reason: Pain, moderate (4-7) Last Admin: 01/21/18 21:11 Dose: 30 mg Metformin HCl (Glucophage) 850 mg PO BID [facility] Ondansetron HCl (Zofran Inj) 4 mg IVP Q6H PRN PRN Reason: Nausea/Vomiting Last Admin: 01/21/18 09:55 Dose: 4 mg Oxycodone HCl (Oxycodone Immediate Release Tab) 20 mg PO Q6 PRN PRN Reason: Pain, severe (8-10) Last Admin: 01/22/18 05:37 Dose: 20 mg Pantoprazole Sodium (Protonix Ec Tab) 40 mg PO DAILY [facility] Last Admin: 01/22/18 10:27 Dose: 40 mg Pregabalin (Lyrica) 75 mg PO Q8 [facility] Last Admin: 01/22/18 13:50 Dose: 75 mg Primidone (Mysoline) 250 mg PO DAILY [facility] Last Admin: 01/22/18 10:28 Dose: 250 mg Rosuvastatin Calcium (Crestor) 10 mg PO HS [facility] Last Admin: 01/21/18 21:14 Dose: 10 mg Spironolactone (Aldactone) 25 mg PO DAILY [facility] Last Admin: 01/22/18 10:27 Dose: 25 mg Tamsulosin HCl (Flomax) 0.4 mg PO DAILY [facility] Last Admin: 01/22/18 10:27 Dose: 0.4 mg Physical Exam - Constitutional Appears: Non-toxic, Chronically Ill - Head Exam Head Exam: NORMOCEPHALIC - Eye Exam Eye Exam: EOMI, PERRL. absent: Scleral icterus - ENT Exam ENT Exam: Mucous Membranes Dry, Normal Oropharynx - Neck Exam Neck exam: Negative for: Lymphadenopathy - Respiratory Exam Respiratory Exam: Decreased Breath Sounds, Prolonged Expiratory Phase, Rhonchi - Cardiovascular Exam Cardiovascular Exam: REGULAR RHYTHM, +S1, +S2 - GI/Abdominal Exam GI & Abdominal Exam: Diminished Bowel Sounds, Distended, Soft. absent: Guarding , Rigid, Tenderness - Rectal Exam Rectal Exam: Deferred - Exam Exam: NORMAL INSPECTION - Extremities Exam Extremities exam: Positive for: pedal pulses present. Negative for: calf tenderness, pedal edema, tenderness - Back Exam Back exam: absent: CVA tenderness (L), CVA tenderness (R), paraspinal tenderness - Neurological Exam Neurological exam: Alert, CN II-XII Intact, Oriented x3, Reflexes Normal - Psychiatric Exam Psychiatric exam: Depressed - Skin Skin Exam: Dry, Intact Results - Vital Signs Recent Vital Signs: Last Vital Signs Temp 97.6 F 01/22/18 15:43 Pulse 69 01/22/18 15:43 Resp 20 01/22/18 15:43 BP 144/74 01/22/18 17:25 Pulse Ox 93 L 01/22/18 15:43 - Labs Result Diagrams: 01/20/18 08:51 01/20/18 08:51 Labs: Laboratory Results - last 24 hr 01/21/18 01/22/18 01/22/18 20:58 06:10 11:01 POC Glucose (mg/dL) 193 H 138 H 228 H 01/22/18 16:12 POC Glucose (mg/dL) 172 H Assessment & Plan (1) Chest pain Status: Acute (2) Knee pain Status: Acute (3) Status post total knee replacement Status: Acute - Assessment and Plan (Free Text) Assessment: possible cellulitis unlikely TKR infection recc: ortho eval IV antibiotics PT/OT cardio eval
[2018-01-22] MEDS: Vancomycin 1 gm/NS 200 ml 1 GM/200 ML BAG IVPB SCH (21:47)
--- NOTE | 2018-01-22 23:48 | PN ---
DATE: 01/22/2018. SUBJECTIVE: The patient denies chest pain. He is still experiencing right knee pain. PHYSICAL EXAMINATION: VITAL SIGNS: Blood pressure 144/74, heart rate 69, temperature 97.6, respirations 20. HEENT: Normocephalic. CHEST: rhonchi. HEART: S1, S2 regular. EXTREMITIES: 1+ right leg edema. LABORATORY DATA: Today's blood sugar is 228 and 172. Echocardiographic study performed today revealed borderline ejection fraction with reduced compliance. Urine cultures positive for gram negative rods. Blood cultures are negative for the past 24 hours. ASSESSMENT: 1. Chest pain, myocardial infarction is ruled out. 2. History of paroxysmal atrial fibrillation. 3. Borderline left ventricular systolic function. 4. Status post total right knee replacement 5 years ago. 5. Mild thrombocytopenia. 6. Uncontrolled diabetes mellitus. RECOMMENDATIONS: Continue Aldactone 25 mg twice a day, IV Ancef at 1 gm every 8 hours, aspirin 325 mg once a day, Coreg 25 mg twice a day, Crestor 10 mg once a day, digoxin 0.125 mg daily, Lovenox 40 mg subcutaneously once a day, vancomycin 1 gm intravenously daily, Wellbutrin 300 mg daily. Dale Meyers MD
--- NOTE | 2018-01-23 01:55 | CARD ---
APPROVED REPORT EXAM: Two-dimensional and M-mode echocardiogram with Doppler and color Doppler. INDICATION Atrial Fibrillation Chest Pain Congestive Heart Failure RISK FACTORS Hypertension Diabetes 2D DIMENSIONS IVSd1.3 (0.7-1.1cm)LVDd4.8 (3.9-5.9cm) PWd1.2 (0.7-1.1cm)LVDs3.3 (2.5-4.0cm) FS (%) 31.2 %LVEF (%)59.0 (>50%) M-Mode DIMENSIONS Left Atrium (MM)4.12 (2.5-4.0cm)IVSd1.22 (0.7-1.1cm) Aortic Root4.06 (2.2-3.7cm)LVDd5.41 (4.0-5.6cm) Aortic Cusp Exc.2.66 (1.5-2.0cm)PWd0.96 (0.7-1.1cm) FS (%) 24 %LVDs4.09 (2.0-3.8cm) LVEF (%)48 (>50%) Mitral Valve MV E Eelomfep19.9cm/sMV A Qszpijym238.7cm/sE/A ratio0.8 TDI E/Lateral E'0.0E/Medial E'0.0 LEFT VENTRICLE The left ventricle is normal size. There is mild concentric left ventricular hypertrophy. Left ventricle systolic function is normal. The Ejection Fraction is 55-60%. There is normal LV segmental wall motion. Tissue Doppler imaging reveals abnormal left ventricular diastolic dysfunction. No left ventricle thrombus noted on this study. RIGHT VENTRICLE The right ventricle is normal size. There is normal right ventricular wall thickness. The right ventricular systolic function is normal. ATRIA The left atrium size is normal. The right atrium size is normal. The interatrial septum is intact with no evidence for an atrial septal defect. AORTIC VALVE The aortic valve is normal in structure. No aortic regurgitation is present. There is no aortic valvular stenosis. There is no aortic valvular vegetation. MITRAL VALVE The mitral valve is normal in structure. There is no evidence of mitral valve prolapse. There is no mitral valve stenosis. There is no mitral valve regurgitation noted. TRICUSPID VALVE The tricuspid valve is normal in structure. There is no tricuspid valve regurgitation noted. There is no tricuspid valve stenosis. PULMONIC VALVE The pulmonic valve is not well visualized. There is trace pulmonic valvular regurgitation. GREAT VESSELS The aortic root is normal in size. PERICARDIAL EFFUSION There is no significant pericardial effusion. <Conclusion> Left ventricle systolic function is normal. The Ejection Fraction is 55-60%. Hypertensive heart disease. Diastolic dysfunction. No aortic regurgitation is present. There is no mitral valve regurgitation noted. There is no tricuspid valve regurgitation noted. There is trace pulmonic valvular regurgitation.
[2018-01-23] MEDS: oxyCODONE 10 mg Immediate Release Tab PO PRN (03:54)
[2018-01-23] MEDS: ceFAZolin IV 1 gm in Dextrose 1 GM/50 ML BAG IVPB SCH ×2 (05:13→13:22)
[2018-01-23] MEDS: (Novolog) Insulin Aspart, Recombinant 100 u/ml 10 ml vial SC SCH ×3 (08:00→18:00)
--- NOTE | 2018-01-23 09:37 | CP.PCM.PN ---
Subjective - Date & Time of Evaluation Date of Evaluation: 01/23/18 Time of Evaluation: 09:33 - Subjective Subjective: Patient states he is "heading in the right direction" with PT. No new complaints. Review of Systems - Review of Systems All systems: reviewed and no additional remarkable complaints except - Constitutional Additional comments: no fever chills - Cardiovascular Cardiovascular: UNREMARKABLE - Respiratory Respiratory: UNREMARKABLE - Gastrointestinal Gastrointestinal: UNREMARKABLE - Musculoskeletal Musculoskeletal: As Par HPI - Integumentary Integumentary: UNREMARKABLE - Neurological Neurological: UNREMARKABLE - Hematologic/Lymphatic Hematologic: UNREMARKABLE Objective - Vital Signs/Intake and Output Vital Signs (last 24 hours): Temp Pulse Resp BP Pulse Ox 98.1 F 70 20 147/74 95 01/23/18 07:56 01/23/18 07:56 01/23/18 07:56 01/23/18 07:56 01/23/18 07:56 Intake and Output: 01/23/18 01/23/18 06:59 18:59 Intake Total 300 Output Total 1050 Balance -750 - Medications Medications: Current Medications Acetaminophen (Tylenol 325mg Tab) 650 mg PO Q6 [facility] Last Admin: 01/23/18 05:14 Dose: Not Given Aspirin (Aspirin) 325 mg PO DAILY [facility] Last Admin: 01/22/18 10:27 Dose: 325 mg Bupropion HCl (Wellbutrin Xl) 300 mg PO DAILY [facility] Last Admin: 01/22/18 10:32 Dose: 300 mg Carvedilol (Coreg) 25 mg PO BID [facility] Last Admin: 01/22/18 17:25 Dose: 25 mg Diazepam (Valium) 10 mg PO BID [facility] Last Admin: 01/22/18 21:38 Dose: 10 mg Digoxin (Digoxin) 0.125 mg PO DAILY@1800 [facility] Last Admin: 01/22/18 17:25 Dose: 0.125 mg Docusate Sodium (Colace) 100 mg PO TID [facility] Last Admin: 01/22/18 17:26 Dose: 100 mg Duloxetine HCl (Cymbalta) 60 mg PO BID [facility] Last Admin: 01/22/18 17:26 Dose: 60 mg Enoxaparin Sodium (Lovenox) 40 mg SC DAILY [facility] Last Admin: 01/22/18 10:25 Dose: 40 mg Famotidine (Pepcid) 20 mg PO DAILY [facility] Last Admin: 03/22/18 10:28 Dose: 20 mg Finasteride (Proscar) 5 mg PO DAILY [facility] Last Admin: 01/22/18 10:28 Dose: 5 mg Cefazolin Sodium/Dextrose (Ancef Iv 1 Gm Duplex) 1 gm in 50 mls @ 100 mls/hr IVPB Q8H [facility] PRN Reason: UD Last Admin: 01/23/18 05:13 Dose: 100 mls/hr Vancomycin/Sodium Chloride (Vancomycin 1 Gm/Ns 200 Ml) 1 gm in 200 mls @ 133 mls/hr IVPB Q24H [facility] PRN Reason: Protocol Stop: 01/25/18 22:01 Last Admin: 01/22/18 21:47 Dose: 133 mls/hr Insulin Aspart (Novolog) 0 unit SC ACHS [facility] PRN Reason: Protocol Last Admin: 01/23/18 08:00 Dose: Not Given Ketorolac Tromethamine (Toradol) 30 mg IVP Q6 PRN PRN Reason: Pain, moderate (4-7) Last Admin: 01/21/18 21:11 Dose: 30 mg Metformin HCl (Glucophage) 850 mg PO BID [facility] Ondansetron HCl (Zofran Inj) 4 mg IVP Q6H PRN PRN Reason: Nausea/Vomiting Last Admin: 01/21/18 09:55 Dose: 4 mg Oxycodone HCl (Oxycodone Immediate Release Tab) 20 mg PO Q6 PRN PRN Reason: Pain, severe (8-10) Last Admin: 01/23/18 03:54 Dose: 20 mg Pantoprazole Sodium (Protonix Ec Tab) 40 mg PO DAILY [facility] Last Admin: 01/22/18 10:27 Dose: 40 mg Pregabalin (Lyrica) 75 mg PO Q8 [facility] Last Admin: 01/23/18 05:14 Dose: 75 mg Primidone (Mysoline) 250 mg PO DAILY [facility] Last Admin: 01/22/18 10:28 Dose: 250 mg Rosuvastatin Calcium (Crestor) 10 mg PO HS [facility] Last Admin: 01/22/18 21:38 Dose: 10 mg Spironolactone (Aldactone) 25 mg PO DAILY [facility] Last Admin: 01/22/18 10:27 Dose: 25 mg Tamsulosin HCl (Flomax) 0.4 mg PO DAILY [facility] Last Admin: 01/22/18 10:27 Dose: 0.4 mg - Labs Labs: 01/20/18 08:51 01/20/18 08:51 - Constitutional Appears: Well, No Acute Distress - Head Exam Head Exam: ATRAUMATIC - Respiratory Exam Respiratory Exam: NORMAL BREATHING PATTERN - Cardiovascular Exam Additional comments: +DP/PT pulses - Extremities Exam Additional comments: Sitting on EOB knees flexed to 90 eating breakfast. Comfortable. Calves soft Nt neg homans, no erythema to knee, mild residual swelling as expected, no change. Sensation intact - Neurological Exam Neurological Exam: Alert, Awake, Oriented x3 Neuro motor strength exam: Left Lower Extremity: 5, Right Lower Extremity: 5 - Psychiatric Exam Psychiatric exam: Normal Affect, Normal Mood - Skin Skin Exam: Dry, Intact, Normal Color, Warm Assessment and Plan (1) Knee pain Assessment & Plan: Improving recommend weaning narcotics PT/OT orthopedically stable for d/c continue PT/OT as outpt vs home PT f/u private ortho within 2 weeks f/u Dr. Rubio prn d/w Dr. Rubio, agrees with above Status: Acute (2) Status post total knee replacement Status: Acute
--- NOTE | 2018-01-23 10:21 | CP.PCM.PN ---
Subjective - Date & Time of Evaluation Date of Evaluation: 01/23/18 Time of Evaluation: 10:21 - Subjective Subjective: PGY-[address] Marcos's service Pt seen and examined at bedside. Nursing reports patient with pain in testicle after "pinching it while rolling over during ECHO yesterday." Patient denies dysuria, frequencym urgency, flank pain. He states the pain in his knee is well controlled, and he remarks that it "looks less swollen." Denies fever, chills, chest pain, SOB, abdominal pain, N/V. C/o constipation for which he takes lactulose at home. Objective - Vital Signs/Intake and Output Vital Signs (last 24 hours): Temp Pulse Resp BP Pulse Ox 98.1 F 70 20 147/74 95 01/23/18 07:56 01/23/18 07:56 01/23/18 07:56 01/23/18 07:56 01/23/18 07:56 Intake and Output: 01/23/18 01/23/18 06:59 18:59 Intake Total 300 Output Total 1050 Balance -750 - Medications Medications: Current Medications Acetaminophen (Tylenol 325mg Tab) 650 mg PO Q6 [facility] Last Admin: 01/23/18 05:14 Dose: Not Given Aspirin (Aspirin) 325 mg PO DAILY [facility] Last Admin: 01/22/18 10:27 Dose: 325 mg Bupropion HCl (Wellbutrin Xl) 300 mg PO DAILY [facility] Last Admin: 01/22/18 10:32 Dose: 300 mg Carvedilol (Coreg) 25 mg PO BID [facility] Last Admin: 01/22/18 17:25 Dose: 25 mg Diazepam (Valium) 10 mg PO BID [facility] Last Admin: 01/22/18 21:38 Dose: 10 mg Digoxin (Digoxin) 0.125 mg PO DAILY@1800 [facility] Last Admin: 01/22/18 17:25 Dose: 0.125 mg Docusate Sodium (Colace) 100 mg PO TID [facility] Last Admin: 01/22/18 17:26 Dose: 100 mg Duloxetine HCl (Cymbalta) 60 mg PO BID [facility] Last Admin: 01/22/18 17:26 Dose: 60 mg Enoxaparin Sodium (Lovenox) 40 mg SC DAILY [facility] Last Admin: 01/22/18 10:25 Dose: 40 mg Famotidine (Pepcid) 20 mg PO DAILY [facility] Last Admin: 01/22/18 10:28 Dose: 20 mg Finasteride (Proscar) 5 mg PO DAILY [facility] Last Admin: 01/22/18 10:28 Dose: 5 mg Cefazolin Sodium/Dextrose (Ancef Iv 1 Gm Duplex) 1 gm in 50 mls @ 100 mls/hr IVPB Q8H [facility] PRN Reason: UD Last Admin: 01/23/18 05:13 Dose: 100 mls/hr Vancomycin/Sodium Chloride (Vancomycin 1 Gm/Ns 200 Ml) 1 gm in 200 mls @ 133 mls/hr IVPB Q24H [facility] PRN Reason: Protocol Stop: 01/25/18 22:01 Last Admin: 01/22/18 21:47 Dose: 133 mls/hr Insulin Aspart (Novolog) 0 unit SC ACHS [facility] PRN Reason: Protocol Last Admin: 01/23/18 08:00 Dose: Not Given Ketorolac Tromethamine (Toradol) 30 mg IVP Q6 PRN PRN Reason: Pain, moderate (4-7) Last Admin: 01/21/18 21:11 Dose: 30 mg Metformin HCl (Glucophage) 850 mg PO BID [facility] Ondansetron HCl (Zofran Inj) 4 mg IVP Q6H PRN PRN Reason: Nausea/Vomiting Last Admin: 01/21/18 09:55 Dose: 4 mg Oxycodone HCl (Oxycodone Immediate Release Tab) 20 mg PO Q6 PRN PRN Reason: Pain, severe (8-10) Last Admin: 01/23/18 03:54 Dose: 20 mg Pantoprazole Sodium (Protonix Ec Tab) 40 mg PO DAILY [facility] Last Admin: 01/22/18 10:27 Dose: 40 mg Pregabalin (Lyrica) 75 mg PO Q8 [facility] Last Admin: 01/23/18 05:14 Dose: 75 mg Primidone (Mysoline) 250 mg PO DAILY [facility] Last Admin: 01/22/18 10:28 Dose: 250 mg Rosuvastatin Calcium (Crestor) 10 mg PO HS [facility] Last Admin: 01/22/18 21:38 Dose: 10 mg Spironolactone (Aldactone) 25 mg PO DAILY [facility] Last Admin: 01/22/18 10:27 Dose: 25 mg Tamsulosin HCl (Flomax) 0.4 mg PO DAILY [facility] Last Admin: 01/22/18 10:27 Dose: 0.4 mg - Labs Labs: 01/20/18 08:51 01/20/18 08:51 - Constitutional Appears: Well, Non-toxic, No Acute Distress - Head Exam Head Exam: ATRAUMATIC, NORMAL INSPECTION - Eye Exam Eye Exam: EOMI Pupil Exam: PERRL - ENT Exam ENT Exam: Mucous Membranes Moist - Neck Exam Neck Exam: Full ROM - Respiratory Exam Respiratory Exam: Clear to Ausculation Bilateral, NORMAL BREATHING PATTERN - Cardiovascular Exam Cardiovascular Exam: RRR, +S1, +S2 - GI/Abdominal Exam GI & Abdominal Exam: Soft, Normal Bowel Sounds - Extremities Exam Additional comments: Ice pack below right knee Light touch intact in both extremities No tenderness in calf Rt knee slightly warmer to touch than left Mild swelling vs left knee Longitudinal scar noted over knee, no drainage - Back Exam Back Exam: absent: CVA tenderness (L), CVA tenderness (R) - Neurological Exam Neurological Exam: Alert, Awake, Oriented x3 - Psychiatric Exam Psychiatric exam: Normal Affect, Normal Mood - Skin Skin Exam: Normal Color, Warm Assessment and Plan - Assessment and Plan (Free Text) Plan: Knee pain s/p total knee replacement on 12/18 in [facility] Knee (01/21/18): No acute fx. No evidence of prosthesis loosening. Small jt effusion. Venous dopplers (01/21/18): negative Dr. Rubio, Ortho underwriting consultant - orthopedically stable for D/c - f/u with private ortho in 2 weeks time, Dr. Rubio PRN Pain regimen: Toradol 30mg IV Q6H PRN, moderate pain Oxycodone 20mg PO Q6H PRN, severe PT/OT: recommend home PT w services Cellulitis Rt Knee Dr. Garcia consulted Cefazolin 1gm IV Q8H (start 01/20/18, Day 4) Vancomycin 1gm IV QDaily (start 01/20/18, Day 4) - Needs 1 additional week of Cef/Vanco (last dose 01/30/18) Diabetes mellitus Metformin 850mg PO BID [facility] Accuchecks Hypoglycemia treatment protocol Abnml Urine Culture Urine Cx: E.coli - f/u UA Chest pain, resolved EKG (01/20/18): NSR, Rate 80 bpm, No ST/T wave changes ECHO: (01/20/18): Diastolic CHF. EF 55-60%. LVH. Troponin negative x 3 Dr. Francisco, help appreciated - AK ruled out - borderline LV systolic fxn CHF, Diastolic ECHO: (01/20/18): Diastolic CHF. EF 55-60%. LVH. Digoxin 0.125mg PO DAily Coreg 25mg PO BID Aldactone 25mg PO Daily Paroxysmal Afib ASA 325mg PO Daily Digoxin 0.125mg PO DAily Coreg 25mg PO BID Elevated D-dimer D-dimer 1820 Etiology: Most likely due to recent knee surgery Bandemia, resolved WBC borderline (10.8) on 01/20, WBC 6.7 Bandemia resolved Urine Culture: positive for Ecoli Dr. Garcia, ID underwriting consultant Blood cultures: negative x 48hours Testicular pain No swelling/redness Ice pack application PRN Depression Wellbutrin 300mg PO Daily Constipation Lactulose 20mg PO Q8H PRN Colace 100mg PO TID [facility] Flomax 0.4 mg PO Daily Proscar 5mg PO BID Prophylaxis Lovenox 40mg SC Daily SCD C/I Protonix 40mg PO Daily Disposition: Needs ADDITIONAL week of Cef/Vanco per ID. Will need PICC line. Need UA to evaluate abnormal urine culture. Need eligible for discharge to rehab at this time. All medical management per Dr. Marcos
[2018-01-23] MEDS: buPROPion 150 mg/24 Hours XL Tab PO SCH (10:28)
[2018-01-23] MEDS: Pantoprazole 40 mg EC Tab PO SCH (10:29)
[2018-01-23] MEDS: Enoxaparin 40 mg Syringe SC SCH (10:33)
--- NOTE | 2018-01-23 13:02 | CP.PCM.PN ---
Subjective - Date & Time of Evaluation Date of Evaluation: 01/23/18 Time of Evaluation: 09:00 - Subjective Subjective: no fever cellulitis less Objective - Vital Signs/Intake and Output Vital Signs (last 24 hours): Temp Pulse Resp BP Pulse Ox 98.1 F 70 20 147/74 95 01/23/18 07:56 01/23/18 07:56 01/23/18 07:56 01/23/18 10:31 01/23/18 12:06 Intake and Output: 01/23/18 01/23/18 06:59 18:59 Intake Total 300 Output Total 1050 Balance -750 - Medications Medications: Current Medications Acetaminophen (Tylenol 325mg Tab) 650 mg PO Q6 [facility] Last Admin: 01/23/18 05:14 Dose: Not Given Aspirin (Aspirin) 325 mg PO DAILY [facility] Last Admin: 01/23/18 10:32 Dose: 325 mg Bupropion HCl (Wellbutrin Xl) 300 mg PO DAILY [facility] Last Admin: 01/23/18 10:28 Dose: 300 mg Carvedilol (Coreg) 25 mg PO BID [facility] Last Admin: 01/23/18 10:31 Dose: 25 mg Diazepam (Valium) 10 mg PO BID [facility] Last Admin: 01/23/18 10:28 Dose: 10 mg Digoxin (Digoxin) 0.125 mg PO DAILY@1800 [facility] Last Admin: 01/22/18 17:25 Dose: 0.125 mg Docusate Sodium (Colace) 100 mg PO TID [facility] Last Admin: 01/23/18 10:32 Dose: 100 mg Duloxetine HCl (Cymbalta) 60 mg PO BID [facility] Last Admin: 01/23/18 10:28 Dose: 60 mg Enoxaparin Sodium (Lovenox) 40 mg SC DAILY [facility] Last Admin: 01/23/18 10:33 Dose: 40 mg Famotidine (Pepcid) 20 mg PO DAILY [facility] Last Admin: 01/23/18 10:29 Dose: 20 mg Finasteride (Proscar) 5 mg PO DAILY [facility] Last Admin: 01/23/18 10:28 Dose: 5 mg Cefazolin Sodium/Dextrose (Ancef Iv 1 Gm Duplex) 1 gm in 50 mls @ 100 mls/hr IVPB Q8H [facility] PRN Reason: UD Last Admin: 01/23/18 05:13 Dose: 100 mls/hr Vancomycin/Sodium Chloride (Vancomycin 1 Gm/Ns 200 Ml) 1 gm in 200 mls @ 133 mls/hr IVPB Q24H [facility] PRN Reason: Protocol Stop: 01/25/18 22:01 Last Admin: 01/22/18 21:47 Dose: 133 mls/hr Insulin Aspart (Novolog) 0 unit SC ACHS [facility] PRN Reason: Protocol Last Admin: 01/23/18 08:00 Dose: Not Given Ketorolac Tromethamine (Toradol) 30 mg IVP Q6 PRN PRN Reason: Pain, moderate (4-7) Last Admin: 01/21/18 21:11 Dose: 30 mg Lactulose (Enulose) 20 gm PO Q8H PRN PRN Reason: Constipation Metformin HCl (Glucophage) 850 mg PO BID [facility] Last Admin: 01/23/18 10:28 Dose: 850 mg Ondansetron HCl (Zofran Inj) 4 mg IVP Q6H PRN PRN Reason: Nausea/Vomiting Last Admin: 01/21/18 09:55 Dose: 4 mg Oxycodone HCl (Oxycodone Immediate Release Tab) 20 mg PO Q6 PRN PRN Reason: Pain, severe (8-10) Last Admin: 01/23/18 03:54 Dose: 20 mg Pantoprazole Sodium (Protonix Ec Tab) 40 mg PO DAILY [facility] Last Admin: 01/23/18 10:29 Dose: 40 mg Pregabalin (Lyrica) 75 mg PO Q8 [facility] Last Admin: 01/23/18 05:14 Dose: 75 mg Primidone (Mysoline) 250 mg PO DAILY [facility] Last Admin: 01/23/18 10:29 Dose: 250 mg Rosuvastatin Calcium (Crestor) 10 mg PO HS [facility] Last Admin: 01/22/18 21:38 Dose: 10 mg Spironolactone (Aldactone) 25 mg PO DAILY [facility] Last Admin: 01/23/18 10:32 Dose: 25 mg Tamsulosin HCl (Flomax) 0.4 mg PO DAILY [facility] Last Admin: 01/23/18 10:32 Dose: 0.4 mg - Labs Labs: 01/20/18 08:51 01/20/18 08:51 - Constitutional Appears: Non-toxic, Chronically Ill - Head Exam Head Exam: NORMOCEPHALIC - Eye Exam Eye Exam: PERRL - ENT Exam ENT Exam: Mucous Membranes Dry - Neck Exam Neck Exam: absent: Lymphadenopathy - Respiratory Exam Respiratory Exam: Decreased Breath Sounds - Cardiovascular Exam Cardiovascular Exam: REGULAR RHYTHM - GI/Abdominal Exam GI & Abdominal Exam: Distended, Soft Assessment and Plan (1) Chest pain Status: Acute (2) Knee pain Status: Acute (3) Status post total knee replacement Status: Acute - Assessment and Plan (Free Text) Assessment: cont iv rx 7 days
[2018-01-23 13:10] LABS: BASO % 0.6 % (0.0-2.0); EOS % 2.2 % (0.0-4.0); HEMOGLOBIN 11.5 g/dL (12.0-18.0); LYMPH % 17.4 % (20.0-40.0); MEAN CELL VOLUME 85.7 fL (80.0-94.0); MEAN CORPUSCULAR HEMOGLOBIN 28.4 pg (27.0-31.0); MEAN CORPUSCULAR HGB CONC 33.2 g/dL (33.0-37.0); MEAN PLATELET VOLUME 8.8 fL (7.2-11.7); MONO % 11.4 % (0.0-10.0); NEUT # 4.6 K/uL (1.8-7.0); NEUT % 68.4 % (50.0-75.0); RBC 4.03 Mil/uL (4.40-5.90); RED CELL DISTRIBUTION WIDTH 15.7 % (11.5-14.5); WHITE BLOOD COUNT 6.7 K/uL (4.8-10.8)
[2018-01-23 13:11] LABS: EOS # 0.1 K/uL (0.0-0.7); LYMPH # 1.2 K/uL (1.0-4.3); MONO # 0.8 K/uL (0.0-0.8)
[2018-01-23 13:26] LABS: ALBUMIN 2.9 g/dL (3.5-5.0); ALT/SGPT 31 U/L (21-72); AST/SGOT 17 U/L (17-59); BLOOD UREA NITROGEN 16 mg/dL (9-20); GFR AFRICAN-AMERICAN > 60; GFR NON-AFRICAN AMERICAN > 60
[2018-01-23] MEDS ORDERED: Dextrose 50% SYRINGE Inj (50 ml) IV PRN (15:17)
[2018-01-23] MEDS ORDERED: Glucagon Recombinant 1 mg Inj IM PRN (15:17)
[2018-01-23 17:09] VITALS: BP 144/71; TEMP 98.4; O2SAT 97
--- NOTE | 2018-01-23 18:17 | CP.PCM.PN ---
Subjective - Date & Time of Evaluation Date of Evaluation: 01/23/18 Time of Evaluation: 08:40 - Subjective Subjective: clinically same Objective - Vital Signs/Intake and Output Vital Signs (last 24 hours): Temp Pulse Resp BP Pulse Ox 98.4 F 80 20 144/71 97 01/23/18 15:57 01/23/18 15:57 01/23/18 15:57 01/23/18 15:57 01/23/18 15:57 Intake and Output: 01/23/18 01/23/18 06:59 18:59 Intake Total 300 Output Total 1050 Balance -750 - Medications Medications: Current Medications Acetaminophen (Tylenol 325mg Tab) 650 mg PO Q6 [facility] Last Admin: 01/23/18 12:30 Dose: 650 mg Aspirin (Aspirin) 325 mg PO DAILY [facility] Last Admin: 01/23/18 10:32 Dose: 325 mg Bupropion HCl (Wellbutrin Xl) 300 mg PO DAILY [facility] Last Admin: 01/23/18 10:28 Dose: 300 mg Carvedilol (Coreg) 25 mg PO BID [facility] Last Admin: 01/23/18 10:31 Dose: 25 mg Dextrose (Dextrose 50% Inj) 0 ml IV STAT PRN; Protocol PRN Reason: Hypoglycemia Protocol Dextrose (Glutose 15) 0 gm PO ONCE PRN; Protocol PRN Reason: Hypoglycemia Protocol Diazepam (Valium) 10 mg PO BID [facility] Last Admin: 01/23/18 10:28 Dose: 10 mg Digoxin (Digoxin) 0.125 mg PO DAILY@1800 [facility] Last Admin: 01/22/18 17:25 Dose: 0.125 mg Docusate Sodium (Colace) 100 mg PO TID [facility] Last Admin: 01/23/18 13:20 Dose: 100 mg Duloxetine HCl (Cymbalta) 60 mg PO BID [facility] Last Admin: 01/23/18 10:28 Dose: 60 mg Enoxaparin Sodium (Lovenox) 40 mg SC DAILY [facility] Last Admin: 01/23/18 10:33 Dose: 40 mg Famotidine (Pepcid) 20 mg PO DAILY [facility] Last Admin: 01/23/18 10:29 Dose: 20 mg Finasteride (Proscar) 5 mg PO DAILY [facility] Last Admin: 01/23/18 10:28 Dose: 5 mg Glucagon (Glucagen Diagnostic Kit) 0 mg IM STAT PRN; Protocol PRN Reason: Hypoglycemia Protocol Cefazolin Sodium/Dextrose (Ancef Iv 1 Gm Duplex) 1 gm in 50 mls @ 100 mls/hr IVPB Q8H [facility] PRN Reason: UD Last Admin: 01/23/18 13:22 Dose: 100 mls/hr Vancomycin/Sodium Chloride (Vancomycin 1 Gm/Ns 200 Ml) 1 gm in 200 mls @ 133 mls/hr IVPB Q24H [facility] PRN Reason: Protocol Stop: 01/25/18 22:01 Last Admin: 01/22/18 21:47 Dose: 133 mls/hr Dextrose (Dextrose 5% In Water 1000 Ml) 1,000 mls @ 0 mls/hr IV .Q0M PRN; Protocol; Per Protocol PRN Reason: Hypoglycemia Protocol Insulin Aspart (Novolog) 0 unit SC ACHS [facility] PRN Reason: Protocol Last Admin: 01/23/18 12:40 Dose: 3 unit Lactulose (Enulose) 20 gm PO Q8H PRN PRN Reason: Constipation Last Admin: 01/23/18 13:20 Dose: 20 gm Metformin HCl (Glucophage) 850 mg PO BID [facility] Last Admin: 01/23/18 10:28 Dose: 850 mg Ondansetron HCl (Zofran Inj) 4 mg IVP Q6H PRN PRN Reason: Nausea/Vomiting Last Admin: 01/21/18 09:55 Dose: 4 mg Oxycodone HCl (Oxycodone Immediate Release Tab) 20 mg PO Q6 PRN PRN Reason: Pain, severe (8-10) Last Admin: 01/23/18 03:54 Dose: 20 mg Pantoprazole Sodium (Protonix Ec Tab) 40 mg PO DAILY [facility] Last Admin: 01/23/18 10:29 Dose: 40 mg Pregabalin (Lyrica) 75 mg PO Q8 [facility] Last Admin: 01/23/18 13:20 Dose: 75 mg Primidone (Mysoline) 250 mg PO DAILY [facility] Last Admin: 01/23/18 10:29 Dose: 250 mg Rosuvastatin Calcium (Crestor) 10 mg PO HS [facility] Last Admin: 01/22/18 21:38 Dose: 10 mg Spironolactone (Aldactone) 25 mg PO DAILY [facility] Last Admin: 01/23/18 10:32 Dose: 25 mg Tamsulosin HCl (Flomax) 0.4 mg PO DAILY [facility] Last Admin: 01/23/18 10:32 Dose: 0.4 mg - Labs Labs: 01/23/18 13:01 01/23/18 13:01 - Constitutional Appears: Well - Head Exam Head Exam: ATRAUMATIC, NORMAL INSPECTION, NORMOCEPHALIC - Eye Exam Eye Exam: EOMI, Normal appearance, PERRL Pupil Exam: NORMAL ACCOMODATION, PERRL - ENT Exam ENT Exam: Mucous Membranes Moist, Normal Exam - Neck Exam Neck Exam: Full ROM, Normal Inspection. absent: Lymphadenopathy - Respiratory Exam Respiratory Exam: Decreased Breath Sounds - Cardiovascular Exam Cardiovascular Exam: REGULAR RHYTHM, +S1, +S2 - GI/Abdominal Exam GI & Abdominal Exam: Soft, Diminished Bowel Sounds - Rectal Exam Rectal Exam: Deferred
[2018-01-23] MEDS: Digoxin 125 mcg (0.125 mg) Tab PO SCH (18:34)
[2018-01-23 18:37] VITALS: PULSE 77
--- NOTE | 2018-01-23 18:47 | PN ---
DATE: SUBJECTIVE: The patient is complaining of scrotal swelling. He denies any chest pain. PHYSICAL EXAMINATION: VITAL SIGNS: Blood pressure 147/74, heart rate 70, temperature 98.1, respirations 20. HEENT: Normocephalic. CHEST: Diminished breath sounds over the bases. HEART: S1, S2 regular. ABDOMEN: Soft. GENITOURINARY: Mild scrotal edema. EXTREMITIES: 1+ pitting edema. LABORATORY DATA: SMA-7 within normal limits, sodium 136, potassium 4.1, chloride 97, CO2 of 25, glucose 124, BUN 16, creatinine 0.7. Hemoglobin and hematocrit 11.5 and 34.6, white count and platelet count are within normal limits. Official echocardiographic study report, normal left ventricular systolic function, hypertensive heart disease, diastolic dysfunction. ASSESSMENT: 1. Chest pain, myocardial infarction is ruled out. 2. Status post recent total knee replacement. 3. Diastolic heart failure. 4. History of paroxysmal atrial fibrillation. RECOMMENDATIONS: Continue Aldactone 25 mg once a day, IV Ancef at 1 gm every 8 hours, aspirin 325 mg once a day, Coreg 25 mg twice a day, Crestor 10 mg once a day, digoxin 0.125 mg daily, Lovenox 20 mg subcutaneously daily, vancomycin 1 gm intravenously daily, I will administer one single dose of IV Lasix at 20 mg. The plan is to transfer the patient to subacute rehab today. Dale Meyers MD
[2018-01-23 19:10] LABS: URINE BACTERIA RARE (<OCC); URINE BILIRUBIN NEGATIVE (NEGATIVE); URINE BLOOD TRACE (NEGATIVE); URINE CLARITY Clear (Clear); URINE COLOR Straw (YELLOW); URINE GLUCOSE (UA) NORMAL (Normal); URINE LEUKOCYTE ESTERASE 1+ Leu/uL (Negative); URINE PROTEIN 1+ mg/dL (NEGATIVE); URINE UROBILINOGEN NORMAL mg/dL (0.2-1.0)
[2018-01-24 00:38] VITALS: PULSE 77
== END 2018-01-23 21:04 ==
LOC: C.ER 08:05 → C.6T 15:14 → C.9E 15:14 → C.6T 01-21 20:18
PROVIDERS: ADMIT Internal Medicine Nephrology; ATTEND Internal Medicine Nephrology
DX: R07.89 Other chest pain (principal); D69.6 Thrombocytopenia, unspecified; E11.65 Type 2 diabetes mellitus with hyperglycemia; G89.29 Other chronic pain; I48.0 Paroxysmal atrial fibrillation; I11.0 Hypertensive heart disease with heart failure; I50.30 Unspecified diastolic (congestive) heart failure; J44.9 Chronic obstructive pulmonary disease, unspecified; K59.00 Constipation, unspecified; L03.115 Cellulitis of right lower limb; N40.0 Benign prostatic hyperplasia without lower urinary tract symptoms; Z96.651 Presence of right artificial knee joint
CPT/HCPCS: 36415; 71045; 71275; 73560; 73700; 80053; 80202; 81001; 82948; 83735; 83880; 84100; 84443; 84484; 85025; 85378; 87040; 87070; 87086; 87181; 93005; 93306; 93971; 97116; 97161; 97166; 97530; 99285; G0378; G8978; G8979; G8987; G8988; J0690; J1170; J1650; J1885; J1940; J2405; J3370; Q9967

== ENCOUNTER 2018-02-16 17:36 | Inpatient (IN) | payer MEDICARE, BC ==
[2018-02-16 17:36] VITALS: BMI 38.7
--- NOTE | 2018-02-16 20:37 | C.PDOC ---
History Of Present Illness 67 y/o male brought to ED by EMS for evaluation of right knee pain gradually developed since this morning at home after fall. Patient reports he twisted knee and complaints of diffuse right knee radiating to ankle. Patient states pain is localized and worse with ambulation. Pt denies head injury, LOC, syncope , neck pain, CP, SOB, dyspnea, abd. pain, N/V, denies obvious deformity, weakness, sensory or vascular deficits to Right leg, denies any other complaints at this time. At present time, pt appears drowsy, admits takes Oxycodone, Morphine at home for "chr. back pain." Time Seen by Provider: 02/16/18 17:59 Chief Complaint (Nursing): Lower Extremity Problem/Injury History Per: Patient History/Exam Limitations: no limitations Onset/Duration Of Symptoms: Hrs Current Symptoms Are (Timing): Still Present Past Medical History Reviewed: Historical Data, Nursing Documentation, Vital Signs Vital Signs: Last Vital Signs Temp 97.3 F L 02/17/18 23:50 Pulse 65 02/17/18 23:50 Resp 20 02/17/18 23:50 BP 120/66 02/17/18 23:50 Pulse Ox 97 02/17/18 23:50 - Medical History PMH: Arthritis, Atrial Fibrillation, Back Problems, Cardia Arrhythmia (atrial fib), CHF, COPD, Depression, Diabetes, Fractures ( RIBS RIGHT ELBOW), HTN, Hypercholesterolemia, Pneumonia (10 YEARS AGO), Chronic Pain Surgical History: Back Surgery (MULTILEVEL DISC HERNIATIONS,), Endoscopy - [facility] Procedures CLOSED ENDOSCOPIC BIOPSY OF LUNG (03/16/13) DESTRUCT-KNEE LESION NEC (10/19/03) EXCIS KNEE SEMILUN CARTL (10/19/03) EXCISION OF DESCENDING COLON, ENDO, DIAGN (01/22/16) INJECT STEROID (10/09/04) INJECTION INTO JOINT (10/09/04) LYMPHATIC STRUCT BIOPSY (03/16/13) NEBULIZER THERAPY (08/03/13) OCCUPATIONAL THERAPY (08/03/13) PHYSICAL THERAPY NEC (08/03/13) PSYCHIAT DRUG THERAP NEC (09/28/12) RESECTION OF PROSTATE, ENDO (03/06/17) Family History: States: No Known Family Hx - Social History Hx Tobacco Use: No Hx Alcohol Use: No Hx Substance Use: Yes (Quit) - Immunization History Hx Tetanus Toxoid Vaccination: Yes Hx Influenza Vaccination: Yes Hx Pneumococcal Vaccination: Yes Review Of Systems Constitutional: Negative for: Fever, Chills Gastrointestinal: Negative for: Nausea, Vomiting Musculoskeletal: Positive for: Foot Pain Skin: Negative for: Rash Neurological: Negative for: Weakness, Numbness Physical Exam - Physical Exam Appears: Non-toxic, No Acute Distress Skin: Warm, Dry, No Rash Head: Atraumatic, Normacephalic Eye(s): bilateral: PERRL (pinpoint B/L) Nose: No Deformity, No Tenderness Oral Mucosa: Moist Throat: No Drooling Neck: Normal ROM, No Midline Cervical Tenderness, No Paracervical Tenderness, No Step Off Deformity, Supple Cardiovascular: Rhythm Regular, No Murmur, No JVD Respiratory: No Accessory Muscle Use, No Rales, No Rhonchi, No Wheezing Gastrointestinal/Abdominal: Soft, No Tenderness, No Guarding, No Rebound Extremity: Normal ROM (mid discofmort to FAROM over Right knee due to pain), Tenderness (diffuse Right knee tenderness, mild edema. No palpable deformity. Mild tenderness over Right ankle, no palpable deformity.), No Pedal Edema, No Calf Tenderness, Capillary Refill (<2 seconds), No Deformity, Swelling (trace Right ankle edema.) Pulses: Left Dorsalis Pedis: Normal, Right Dorsalis Pedis: Normal Neurological/Psych: Oriented x3, Normal Speech, Normal Motor, Normal Sensation, Normal Reflexes ED Course And Treatment - Laboratory Results Result Diagrams: 02/16/18 21:37 02/16/18 21:37 O2 Sat by Pulse Oximetry: 94 (RA) Pulse Ox Interpretation: Abnormal - Other Rad Right knee X-Ray: Viewed By Me Interpretation: (+) severe DJD, TKR, (+) distal femur avulsion fx Right ankle X-Ray: Interpreted by Me, Viewed By Me Interpretation: (-)acute fx - CT Scan/US CT Right knee w/o contrast Other Rad Studies (CT/US): Radiology Report Reviewed CT/US Interpretation: CT KNEE W/O CONTRAST BILATERAL 2018-01-21 13:37. . FINDINGS: Limitations: Streak artifact - moderate. Bones/joints: Fracture lateral aspect of lateral femoral condyle,. suboptimally evaluated due to streak artifact. Total knee arthroplasty. No. dislocation. Few linear calcific or ossific densities about knee joint,. stable. Moderate hyperdense joint effusion. Soft tissues: [id number] stranding within subcutaneous tissues. Mild. skin thickening. Vasculature: Mild atherosclerotic disease. . IMPRESSION: 1. Distal femur fracture. 2. Incidental/non-acute findings are described above. . Dictated By: Yuri Mckeon MD. Dictated Date/Time: 02/16/18 6111 Progress Note: After imaging review, case discussed with pt's PMD and admission recommend to [facility] case discussed with Kelly, admission accepted, ortho consult requested. Right leg elevation, Knee immobilizer applied to Right knee. Pt was placed Non-weight bearing status/non- ambulatory. results review and discussed with pt agrees with plan. Disposition - Disposition Disposition: HOSPITALIZED Disposition Time: 20:20 Condition: STABLE - Clinical Impression Clinical Impression: Knee fracture, right - PA / VENTILATING ENGINEER / Resident Statement MD/DO has reviewed & agrees with the documentation as recorded. - Scribe Statement The provider has reviewed the documentation as recorded by the Karinaibaden Randle All medical record entries made by the Renato were at my direction and personally dictated by me. I have reviewed the chart and agree that the record accurately reflects my personal performance of the history, physical exam, medical decision making, and the department course for this patient. I have also personally directed, reviewed, and agree with the discharge instructions and disposition.
[2018-02-16 21:52] LABS: INR 1.2; PROTHROMBIN TIME 13.1 SECONDS (9.7-12.2)
[2018-02-16] MEDS ORDERED: Oxycodone/Acetaminophen 5/325 mg Tab PO STA (21:57)
[2018-02-16 21:58] LABS: BASO % 0.3 % (0.0-2.0); EOS # 0.1 K/uL (0.0-0.7); EOS % 2.1 % (0.0-4.0); HEMOGLOBIN 13.4 g/dL (12.0-18.0); LYMPH % 16.4 % (20.0-40.0); MEAN CELL VOLUME 84.4 fL (80.0-94.0); MEAN CORPUSCULAR HEMOGLOBIN 28.3 pg (27.0-31.0); MEAN CORPUSCULAR HGB CONC 33.5 g/dL (33.0-37.0); MEAN PLATELET VOLUME 8.7 fL (7.2-11.7); MONO # 0.7 K/uL (0.0-0.8); MONO % 12.1 % (0.0-10.0); NEUT # 4.1 K/uL (1.8-7.0); NEUT % 69.1 % (50.0-75.0); RBC 4.72 Mil/uL (4.40-5.90); RED CELL DISTRIBUTION WIDTH 15.5 % (11.5-14.5)
[2018-02-16] MEDS ORDERED: Oxycodone/Acetaminophen 5/325 mg Tab ONE (22:01)
[2018-02-16 22:24] LABS: BLOOD UREA NITROGEN 22 mg/dL (9-20); CALCIUM 8.9 mg/dl (8.6-10.4); GFR AFRICAN-AMERICAN > 60; GFR NON-AFRICAN AMERICAN > 60
--- NOTE | 2018-02-16 23:13 | CT ---
EXAM: CT Right Lower Extremity Without Intravenous Contrast, Knee CLINICAL HISTORY: 67 years old, male; Injury or trauma; Fall; Initial encounter; Abrasion; Knee; Right; Additional info: Right knee injury R/O FX. HX of knee replacement TECHNIQUE: Axial computed tomography images of the right knee without intravenous contrast. All CT scans at this facility use one or more dose reduction techniques, viz.: automated exposure control; ma/kV adjustment per patient size (including targeted exams where dose is matched to indication; i.e. head); or iterative reconstruction technique. Coronal and sagittal reformatted images were created and reviewed. COMPARISON: CT KNEE W/O CONTRAST BILATERAL 2018-01-21 13:37 FINDINGS: Limitations: Streak artifact - moderate. Bones/joints: Fracture lateral aspect of lateral femoral condyle, suboptimally evaluated due to streak artifact. Total knee arthroplasty. No dislocation. Few linear calcific or ossific densities about knee joint, stable. Moderate hyperdense joint effusion. Soft tissues: [id number]-yf-[id number] stranding within subcutaneous tissues. Mild skin thickening. Vasculature: Mild atherosclerotic disease. IMPRESSION: 1. Distal femur fracture. 2. Incidental/non-acute findings are described above.
--- NOTE | 2018-02-16 23:52 | CP.PCM.CON ---
History of Present Illness - History of Present Illness History of Present Illness: 67 year old with HTN, OA had P AFIB, chronic narcotics use, now admitted with knee pain after a fall, hx of knee replacement, for further f/u. 01/18 echo at was with ? bicuspid AO Nl LV funtion no . Review of Systems - Review of Systems Systems not reviewed;Unavailable: Acuity of Condition - Constitutional Constitutional: Anorexia, Weakness - EENT Eyes: absent: Discharge Ears: absent: Ear Discharge, Dizziness Nose/Mouth/Throat: absent: Epistaxis - Cardiovascular Cardiovascular: absent: Acrocyanosis, Chest Pain, Claudication, Diaphoresis, Palpitations, Pedal Edema, Syncope - Respiratory Respiratory: absent: Cough, Dyspnea, Hemoptysis - Gastrointestinal Gastrointestinal: absent: Abdominal Pain, Diarrhea, Nausea, Vomiting - Genitourinary Genitourinary: absent: Hematuria Past Patient History - Infectious Disease Hx of Infectious Diseases: None - Tetanus Immunizations Tetanus Immunization: Unknown - Past Medical History & Family History Past Medical History?: Yes - Past Social History Smoking Status: Never Smoked - CARDIAC Hx Atrial Fibrillation: Yes Hx Cardia Arrhythmia: Yes (atrial fib) Hx Congestive Heart Failure: Yes Hx Hypercholesterolemia: Yes Hx Hypertension: Yes - PULMONARY Hx Chronic Obstructive Pulmonary Disease (COPD): Yes Hx Pneumonia: Yes (10 YEARS AGO) - NEUROLOGICAL Hx Neurological Disorder: Yes (PERIPHERAL NEUROPATHY) Other/Comment: hand tremors DUE TO NERVES - HEENT Hx HEENT Problems: No - RENAL Hx Chronic Kidney Disease: No - ENDOCRINE/METABOLIC Hx Diabetes Mellitus Type 2: Yes - HEMATOLOGICAL/ONCOLOGICAL Hx Blood Disorders: No - INTEGUMENTARY Other/Comment: Mass, scalp - MUSCULOSKELETAL/RHEUMATOLOGICAL Hx Arthritis: Yes Hx Fractures: Yes ( RIBS RIGHT ELBOW) - GENITOURINARY/GYNECOLOGICAL Hx Genitourinary Disorders: Yes (+LEGIONELLA IN THE URINE,FREQUENCY,) Hx Prostate Problems: Yes (BPH) - PSYCHIATRIC Hx Depression: Yes Hx Substance Use: Yes (Quit) - SURGICAL HISTORY Hx Surgeries: Yes Hx Arthroscopy: Yes (BILAT KNEES) Hx Musculoskeletal Surgery: Yes (LUMBAR LAMINECTOMY) Hx Open Reduction Internal Fixation: Yes (RIGHT ELBOW) Hx Orthopedic Surgery: (RT knee 12/18/17) Other/Comment: INSERTION PAIN CONTROL STIMULATOR LUMBAR - ANESTHESIA Hx Anesthesia: Yes Hx Anesthesia Reactions: No Hx Malignant Hyperthermia: No Meds Allergies/Adverse Reactions: Allergies Allergy/AdvReac Type Severity Reaction Status Date / Time No Known Allergies Allergy Verified 01/20/18 08:12 - Medications Medications: Current Medications Carvedilol (Coreg) 25 mg PO BID [facility] Digoxin (Digoxin) 0.125 mg PO DAILY [facility] Docusate Sodium (Colace) 100 mg PO TID [facility] Enoxaparin Sodium (Lovenox) 110 mg SC Q12 [facility] Finasteride (Proscar) 5 mg PO DAILY [facility] Furosemide (Lasix) 40 mg PO DAILY [facility] Home Med (Bupropion Xl [Wellbutrin Xl]) 300 mg PO DAILY [facility] Home Med (Cholecalciferol (Vitamin D3) [Vitamin D3]) 50,000 unit PO QWK [facility] Home Med (Diazepam [Valium]) 10 mg PO BID PRN PRN Reason: Agitation Home Med (Duloxetine [Cymbalta]) 60 mg PO BID [facility] Home Med (Naloxegol Oxalate [Movantik]) 25 mg PO DAILY [facility] Home Med (Pregabalin [Lyrica]) 225 mg PO QID [facility] Metformin HCl (Glucophage) 850 mg PO BID [facility] Morphine Sulfate (Morphine) 4 mg IVP Q4 PRN PRN Reason: Pain, moderate (4-7) Oxycodone HCl (Oxycodone Immediate Release Tab) 10 mg PO BID PRN PRN Reason: Pain, moderate (4-7) Pantoprazole Sodium (Protonix Ec Tab) 40 mg PO DAILY [facility] Rosuvastatin Calcium (Crestor) 10 mg PO HS [facility] Spironolactone (Aldactone) 25 mg PO DAILY [facility] Tamsulosin HCl (Flomax) 0.4 mg PO DAILY [facility] Physical Exam - Constitutional Appears: Non-toxic - Head Exam Head Exam: ATRAUMATIC - Eye Exam Eye Exam: EOMI - ENT Exam ENT Exam: Mucous Membranes Moist - Neck Exam Neck exam: Negative for: Lymphadenopathy, Thyromegaly - Respiratory Exam Respiratory Exam: Clear to Auscultation Bilateral. absent: Rales - Cardiovascular Exam Cardiovascular Exam: REGULAR RHYTHM, Systolic Murmur - GI/Abdominal Exam GI & Abdominal Exam: Normal Bowel Sounds. absent: Organomegaly - Rectal Exam Rectal Exam: Deferred - Extremities Exam Extremities exam: Positive for: normal capillary refill. Negative for: calf tenderness - Neurological Exam Neurological exam: Alert, Oriented x3 - Psychiatric Exam Psychiatric exam: Normal Mood - Skin Skin Exam: Dry Results - Vital Signs Recent Vital Signs: Last Vital Signs Temp 98.5 F 02/16/18 17:49 Pulse 70 02/16/18 22:22 Resp 20 02/16/18 22:22 BP 158/78 H 02/16/18 22:22 Pulse Ox 94 L 02/16/18 22:59 - Labs Result Diagrams: 02/16/18 21:37 02/16/18 21:37 Labs: Laboratory Results - last 24 hr 02/16/18 02/16/18 02/16/18 21:37 21:37 21:37 WBC 6.0 RBC 4.72 Hgb 13.4 Hct 39.8 MCV 84.4 MCH 28.3 MCHC 33.5 RDW 15.5 H Plt Count 100 L D MPV 8.7 Neut % (Auto) 69.1 Lymph % (Auto) 16.4 L [place] % (Auto) 12.1 H Eos % (Auto) 2.1 Baso % (Auto) 0.3 Neut # (Auto) 4.1 Lymph # (Auto) 1.0 [place] # (Auto) 0.7 Eos # (Auto) 0.1 Baso # (Auto) 0.0 Differential Comment PT 13.1 H INR 1.2 APTT 35 H Sodium 136 Potassium 4.3 Chloride 92 L Carbon Dioxide 33 H Anion Gap 16 BUN 22 H Creatinine 0.7 L Est GFR ( Amer) > 60 Est GFR (Non-Af Amer) > 60 Random Glucose 140 H Calcium 8.9 Assessment & Plan (1) Fall Status: Acute (2) Knee pain Status: Acute (3) Status post total knee replacement Status: Chronic (4) Afib Status: Chronic Comment: paroxismal, rate controlled, anticoag (5) Diabetes mellitus Status: Chronic (6) HTN (hypertension) Status: Chronic
[2018-02-17] MEDS: Morphine 4 MG/ML VIAL IVP PRN ×2 (05:27→16:58)
--- NOTE | 2018-02-17 08:54 | RAD ---
PROCEDURE: Radiographs of the right tibia and fibula. HISTORY: injury COMPARISON: Right knee x-ray of 01/20/2018 TECHNIQUE: Frontal and lateral views obtained. FINDINGS: BONES: Interval nondisplaced lateral femoral condylar fracture fragment -just lateral to the knee - prosthesis-femoral component The triangular faint ossification anterior to the tibial tuberosity consistent with an old osseous avulsion here is unchanged with the 01/20/2018 appearance JOINT SPACES: Interval increased suprapatellar joint effusion. A faint ossification/calcification, 1.2 cm posterior to the distal femur is present not appreciated on the frontal view prominent fabella versus loose body are considerations. . Note is made of this is also present on the 11/04/2015 study and is unchanged this was before the knee replacement.A fabella is favored. OTHER FINDINGS: Medial and lateral subcutaneous reticulated edema. The femoral and tibial arthroplastic components appear maintained in their orientation without interval lucency is to suggest loosening. IMPRESSION: Interval acute fracture lateral femoral condyle nondisplaced. Other findings as above. Please note that the preliminary report from [facility] for that CT lower extremity also done on 02/16/2018 has already communicated these fracture results to Dr. Marcos
--- NOTE | 2018-02-17 09:03 | RAD ---
PROCEDURE: Right Knee Radiographs. HISTORY: injury COMPARISON: 01/20/2018 FINDINGS: BONES: An interval nondisplaced lateral femoral condylar fracture is present. This is just lateral to the femoral prosthetic component which does appear intact. The tibial component also appears intact. The anterior triangular-shaped ossification bordering the anterior tibial tuberosity is a chronic finding. JOINTS: Normal. No osteoarthritis. JOINT EFFUSION: Present OTHER FINDINGS: None. IMPRESSION: Interval acute fracture nondisplaced lateral femoral condyle. Other findings as above
--- NOTE | 2018-02-17 09:04 | RAD ---
PROCEDURE: Right Ankle Radiographs. HISTORY: injury COMPARISON: None FINDINGS: BONES: . No fracture appreciated. . JOINTS: Minimal tarsal osteoarthritis. Ankle mortise maintained. Talar dome intact SOFT TISSUES: Swelling OTHER FINDINGS: None. IMPRESSION: No fracture at ankle level appreciated. Minimal arthrosis. Comments: If clinically indicated consider more sensitive evaluation with MRI
[2018-02-17] MEDS: oxyCODONE 10 mg Immediate Release Tab PO PRN ×2 (09:07→22:46)
[2018-02-17] MEDS: Pantoprazole 40 mg EC Tab PO SCH (09:09)
[2018-02-17] MEDS ORDERED: BUPROPION 300 MG PO SCH (10:00)
[2018-02-17] MEDS ORDERED: PREGABALIN 225 MG PO SCH (10:00)
[2018-02-17] MEDS ORDERED: DULOXETINE 60 MG PO SCH (10:00)
[2018-02-17] MEDS ORDERED: Enoxaparin 100 mg Syringe SC SCH (10:00)
[2018-02-17] MEDS ORDERED: Home Med 1 UNIT (Naloxegol Oxalate [Movantik] 25 MG) PO SCH (10:00)
[2018-02-17] MEDS: Enoxaparin 40 mg Syringe SC SCH (11:54)
--- NOTE | 2018-02-17 13:15 | CP.PCM.PN ---
Subjective - Date & Time of Evaluation Date of Evaluation: 02/17/18 Time of Evaluation: 13:12 - Subjective Subjective: Full consult dictated Dr. Lei 67M with right knee pain s/p slip and0 fall at home. He now has increased knee pain on the inside of his knee. Patient is known to me from prior admission for knee pain, is s/p right TKR mid Dec 2017 at [place] [address] Lopez. Since discharge, patient has still not followed up with Dr. Lopez as directed, nor any other orthopedic doctor. Patient states he has appt with Dr. Lopez next week. Objective - Vital Signs/Intake and Output Vital Signs (last 24 hours): Temp Pulse Resp BP Pulse Ox 98.4 F 74 20 130/65 95 02/17/18 07:00 02/17/18 07:00 02/17/18 07:00 02/17/18 09:07 02/17/18 07:00 Intake and Output: 02/17/18 02/17/18 06:59 18:59 Intake Total 240 Output Total 400 Balance -160 - Medications Medications: Current Medications Bupropion HCl (Wellbutrin Xl) 300 mg PO DAILY [facility] Carvedilol (Coreg) 25 mg PO BID [facility] Last Admin: 02/17/18 09:06 Dose: 25 mg Digoxin (Digoxin) 0.125 mg PO DAILY@1800 [facility] Docusate Sodium (Colace) 100 mg PO TID [facility] Last Admin: 02/17/18 09:05 Dose: 100 mg Enoxaparin Sodium (Lovenox) 40 mg SC DAILY [facility] Last Admin: 02/17/18 11:54 Dose: 40 mg Finasteride (Proscar) 5 mg PO DAILY [facility] Last Admin: 02/17/18 09:08 Dose: 5 mg Furosemide (Lasix) 40 mg PO DAILY [facility] Last Admin: 02/17/18 09:07 Dose: 40 mg Home Med (Cholecalciferol (Vitamin D3) [Vitamin D3]) 50,000 unit PO QWK [facility] Home Med (Diazepam [Valium]) 10 mg PO BID PRN PRN Reason: Agitation Home Med (Duloxetine [Cymbalta]) 60 mg PO BID [facility] Home Med (Naloxegol Oxalate [Movantik]) 25 mg PO DAILY [facility] Home Med (Pregabalin [Lyrica]) 225 mg PO QID [facility] Metformin HCl (Glucophage) 850 mg PO BID [facility] Last Admin: 02/17/18 09:06 Dose: 850 mg Morphine Sulfate (Morphine) 4 mg IVP Q4 PRN PRN Reason: Pain, moderate (4-7) Last Admin: 02/17/18 05:27 Dose: 4 mg Oxycodone HCl (Oxycodone Immediate Release Tab) 10 mg PO BID PRN PRN Reason: Pain, moderate (4-7) Last Admin: 02/17/18 09:07 Dose: 10 mg Pantoprazole Sodium (Protonix Ec Tab) 40 mg PO DAILY [facility] Last Admin: 02/17/18 09:09 Dose: 40 mg Rosuvastatin Calcium (Crestor) 10 mg PO [facility] Spironolactone (Aldactone) 25 mg PO DAILY [facility] Last Admin: 02/17/18 09:05 Dose: 25 mg Tamsulosin HCl (Flomax) 0.4 mg PO DAILY [facility] Last Admin: 02/17/18 09:06 Dose: 0.4 mg - Labs Labs: 02/16/18 21:37 02/16/18 21:37 PT 13.1 SECONDS (9.7-12.2) H 02/16/18 21:37 INR 1.2 02/16/18 21:37 APTT 35 SECONDS (21-34) H 02/16/18 21:37 - Extremities Exam Additional comments: right knee: no obvious effusion, incision well healed, TTP medial joint line, pain with valgus stress. No pain wiht varus stress, no drawer, non tender to lateral knee. Continued right leg swelling, not improved since last visit. calves soft NT neghomans Assessment and Plan (1) Knee fracture, right Assessment & Plan: ? lateral femur avulsion fx NWB and knee immob per Dr. Lei no intervention indicated patient to follow up Dr. Lopez next week PT/OT doppers r/o DVT per Dr. Lei full consult to follow Status: Acute
[2018-02-17] MEDS: buPROPion 150 mg/24 Hours XL Tab PO SCH (13:22)
--- NOTE | 2018-02-17 17:12 | CP.PCM.HP ---
Past Patient History - Infectious Disease Hx of Infectious Diseases: None - Tetanus Immunizations Tetanus Immunization: Unknown - Past Medical History & Family History Past Medical History?: Yes - Past Social History Smoking Status: Former Smoker - CARDIAC Hx Cardiac Disorders: Yes Hx Atrial Fibrillation: Yes Hx Cardia Arrhythmia: Yes (atrial fib) Hx Congestive Heart Failure: Yes Hx Hypercholesterolemia: Yes Hx Hypertension: Yes - PULMONARY Hx Respiratory Disorders: Yes Hx Chronic Obstructive Pulmonary Disease (COPD): Yes Hx Pneumonia: Yes (10 YEARS AGO) - NEUROLOGICAL Hx Neurological Disorder: Yes (PERIPHERAL NEUROPATHY) Other/Comment: hand tremors DUE TO NERVES - HEENT Hx HEENT Problems: No - RENAL Hx Chronic Kidney Disease: No - ENDOCRINE/METABOLIC Hx Endocrine Disorders: Yes Hx Diabetes Mellitus Type 2: Yes - HEMATOLOGICAL/ONCOLOGICAL Hx Blood Disorders: No - INTEGUMENTARY Hx Dermatological Problems: No - MUSCULOSKELETAL/RHEUMATOLOGICAL Hx Musculoskeletal Disorders: Yes Hx Arthritis: Yes Hx Back Pain: Yes Hx Falls: Yes Hx Fractures: Yes ( RIBS RIGHT ELBOW) - GASTROINTESTINAL Hx Gastrointestinal Disorders: Yes Other/Comment: morphine pump on his left side of abdomen- not giving medication as per patient. - GENITOURINARY/GYNECOLOGICAL Hx Genitourinary Disorders: Yes (+LEGIONELLA IN THE URINE,FREQUENCY,) Hx Prostate Problems: Yes (BPH) - PSYCHIATRIC Hx Psychophysiologic Disorder: Yes Hx Depression: Yes Hx Substance Use: Yes (quit long time ago) - SURGICAL HISTORY Hx Surgeries: Yes Hx Arthroscopy: Yes (BILAT KNEES) Hx Musculoskeletal Surgery: Yes (LUMBAR LAMINECTOMY) Hx Open Reduction Internal Fixation: Yes (RIGHT ELBOW) Hx Orthopedic Surgery: (RT knee 12/18/17) Other/Comment: INSERTION PAIN CONTROL STIMULATOR LUMBAR - ANESTHESIA Hx Anesthesia: Yes Hx Anesthesia Reactions: No Hx Malignant Hyperthermia: No Meds Allergies/Adverse Reactions: Allergies Allergy/AdvReac Type Severity Reaction Status Date / Time No Known Allergies Allergy Verified 01/20/18 08:12 Physical Exam - Constitutional Appears: Well - Head Exam Head Exam: ATRAUMATIC, NORMAL INSPECTION, NORMOCEPHALIC - Eye Exam Eye Exam: EOMI, Normal appearance, PERRL Pupil Exam: NORMAL ACCOMODATION, PERRL - ENT Exam ENT Exam: Mucous Membranes Moist, Normal Exam - Neck Exam Neck exam: Positive for: Normal Inspection - Respiratory Exam Respiratory Exam: Decreased Breath Sounds - Cardiovascular Exam Cardiovascular Exam: REGULAR RHYTHM, +S1, +S2 - GI/Abdominal Exam GI & Abdominal Exam: Diminished Bowel Sounds, Soft - Rectal Exam Rectal Exam: Deferred Results - Vital Signs Recent Vital Signs: Last Vital Signs Temp 97.6 F 02/17/18 15:09 Pulse 66 02/17/18 15:09 Resp 20 02/17/18 15:09 BP 114/67 02/17/18 15:09 Pulse Ox 95 02/17/18 15:09 - Labs Result Diagrams: 02/16/18 21:37 02/16/18 21:37 Labs: Laboratory Results - last 24 hr 02/16/18 02/16/18 02/16/18 21:37 21:37 21:37 WBC 6.0 RBC 4.72 Hgb 13.4 Hct 39.8 MCV 84.4 MCH 28.3 MCHC 33.5 RDW 15.5 H Plt Count 100 L D MPV 8.7 Neut % (Auto) 69.1 Lymph % (Auto) 16.4 L [place] % (Auto) 12.1 H Eos % (Auto) 2.1 Baso % (Auto) 0.3 Neut # (Auto) 4.1 Lymph # (Auto) 1.0 [place] # (Auto) 0.7 Eos # (Auto) 0.1 Baso # (Auto) 0.0 Differential Comment PT 13.1 H INR 1.2 APTT 35 H Sodium 136 Potassium 4.3 Chloride 92 L Carbon Dioxide 33 H Anion Gap 16 BUN 22 H Creatinine 0.7 L Est GFR ( Amer) > 60 Est GFR (Non-Af Amer) > 60 POC Glucose (mg/dL) Random Glucose 140 H Calcium 8.9 02/17/18 02/17/18 02/17/18 06:26 11:21 16:44 WBC RBC Hgb Hct MCV MCH MCHC RDW Plt Count MPV Neut % (Auto) Lymph % (Auto) [place] % (Auto) Eos % (Auto) Baso % (Auto) Neut # (Auto) Lymph # (Auto) [place] # (Auto) Eos # (Auto) Baso # (Auto) Differential Comment PT INR APTT Sodium Potassium Chloride Carbon Dioxide Anion Gap BUN Creatinine Est GFR ( Amer) Est GFR (Non-Af Amer) POC Glucose (mg/dL) 124 H 226 H 154 H Random Glucose Calcium
[2018-02-17] MEDS: Digoxin 125 mcg (0.125 mg) Tab PO SCH (18:22)
--- NOTE | 2018-02-17 19:14 | CP.PCM.PN ---
Subjective - Date & Time of Evaluation Date of Evaluation: 02/17/18 Time of Evaluation: 12:00 - Subjective Subjective: difficult to arrouse on narcotics, low plat seen by ortho, observe no FX Objective - Vital Signs/Intake and Output Vital Signs (last 24 hours): Temp Pulse Resp BP Pulse Ox 97.6 F 66 20 114/67 95 02/17/18 15:09 02/17/18 15:09 02/17/18 15:09 02/17/18 18:23 02/17/18 15:09 Intake and Output: 02/17/18 02/18/18 18:59 06:59 Intake Total 500 Output Total 2300 Balance -1800 - Medications Medications: Current Medications Bisacodyl (Dulcolax) 10 mg PO [facility] Bupropion HCl (Wellbutrin Xl) 300 mg PO DAILY [facility] Last Admin: 02/17/18 13:22 Dose: 300 mg Carvedilol (Coreg) 25 mg PO BID [facility] Last Admin: 02/17/18 18:23 Dose: 25 mg Diazepam (Valium) 10 mg PO BID PRN PRN Reason: Agitation Digoxin (Digoxin) 0.125 mg PO DAILY@1800 [facility] Last Admin: 02/17/18 18:22 Dose: 0.125 mg Docusate Sodium (Colace) 100 mg PO TID [facility] Last Admin: 02/17/18 18:20 Dose: 100 mg Enoxaparin Sodium (Lovenox) 40 mg SC DAILY [facility] Last Admin: 02/17/18 11:54 Dose: 40 mg Ergocalciferol (Drisdol 50,000 Intl Units Cap) 1 cap PO QWK [facility] Finasteride (Proscar) 5 mg PO DAILY [facility] Last Admin: 02/17/18 09:08 Dose: 5 mg Furosemide (Lasix) 40 mg PO DAILY [facility] Last Admin: 02/17/18 09:07 Dose: 40 mg Home Med (Duloxetine [Cymbalta]) 60 mg PO BID [facility] Last Admin: 02/17/18 13:13 Dose: Not Given Home Med (Naloxegol Oxalate [Movantik]) 25 mg PO DAILY [facility] Home Med (Pregabalin [Lyrica]) 225 mg PO QID [facility] Last Admin: 02/17/18 13:13 Dose: Not Given Metformin HCl (Glucophage) 850 mg PO BID [facility] Last Admin: 02/17/18 18:21 Dose: 850 mg Morphine Sulfate (Morphine) 4 mg IVP Q4 PRN PRN Reason: Pain, moderate (4-7) Last Admin: 02/17/18 16:58 Dose: 4 mg Oxycodone HCl (Oxycodone Immediate Release Tab) 10 mg PO BID PRN PRN Reason: Pain, moderate (4-7) Last Admin: 02/17/18 09:07 Dose: 10 mg Pantoprazole Sodium (Protonix Ec Tab) 40 mg PO DAILY [facility] Last Admin: 02/17/18 09:09 Dose: 40 mg Rosuvastatin Calcium (Crestor) 10 mg PO [facility] Spironolactone (Aldactone) 25 mg PO DAILY [facility] Last Admin: 02/17/18 09:05 Dose: 25 mg Tamsulosin HCl (Flomax) 0.4 mg PO DAILY [facility] Last Admin: 02/17/18 09:06 Dose: 0.4 mg - Labs Labs: 02/16/18 21:37 02/16/18 21:37 PT 13.1 SECONDS (9.7-12.2) H 02/16/18 21:37 INR 1.2 02/16/18 21:37 APTT 35 SECONDS (21-34) H 02/16/18 21:37 - Constitutional Appears: Non-toxic - Head Exam Head Exam: ATRAUMATIC - Eye Exam Eye Exam: EOMI - ENT Exam ENT Exam: Mucous Membranes Moist - Neck Exam Neck Exam: absent: Lymphadenopathy, Thyromegaly - Respiratory Exam Respiratory Exam: Clear to Ausculation Bilateral. absent: Rales - Cardiovascular Exam Cardiovascular Exam: Irregular Rhythm, Murmur - GI/Abdominal Exam GI & Abdominal Exam: Normal Bowel Sounds. absent: Organomegaly - Rectal Exam Rectal Exam: Deferred - Extremities Exam Extremities Exam: Normal Capillary Refill. absent: Calf Tenderness - Neurological Exam Neurological Exam: Alert - Psychiatric Exam Psychiatric exam: Normal Mood - Skin Skin Exam: Dry Assessment and Plan (1) Fall Status: Acute (2) Knee pain Status: Acute (3) Status post total knee replacement Status: Chronic (4) Afib Status: Chronic (5) Diabetes mellitus Status: Chronic (6) HTN (hypertension) Status: Chronic
--- NOTE | 2018-02-17 21:56 | CON ---
DATE: HISTORY OF PRESENT ILLNESS: The patient is admitted by Dr. Hang Marcos with a diagnosis of right knee fracture. The patient had a right total knee replacement arthroplasty done in 12/2017 and he did well postoperatively, but he did not have any postoperative followup. He was seen in the interim in [facility]. PHYSICAL EXAMINATION: EXTREMITIES: Reveals 2+ swelling of the knee and tenderness over the medial and lateral aspects of the knee noted. A well-healed surgical incision is seen. The patient can flex the knee to 30 degrees. He can do a straight leg raising test, and global tenderness is noted. The patient gave a history of fall and the acute fracture has to be assessed at this time. DIAGNOSTIC DATA: X-rays of the knee and femur including CAT scan revealed a fracture over the lateral condyle of the femur; however, this could be chronic and it seems to be smoothly rounded, but at the most it could be an avulsion fracture of the lateral condyle of the femur. Slight tenderness noted over the lateral aspect of the femur on varus stress. No evidence of gross instability noted. The patient can do a straight leg raising test with difficulty, but he can get the leg off the bed for about 40 inches and he can hold the knee extended in air for about 30 seconds. DIAGNOSES: 1. Status post right total knee replacement arthroplasty with evidence of a knee replacement intact. 2. Possible avulsion fracture of the lateral condyle of the distal femur. PLAN: 1. Treatment is nonoperative. We will continue the Miranda compression dressing and knee immobilizer. 2. We will continue prophylactic anticoagulation. 3. We will start the patient on physical therapy, ambulation, nonweightbearing. 4. The patient will be seeing Dr. Lopez, the operating orthopedic surgeon, in the next week. We will follow the patient. Montrell Lei MD
[2018-02-17] MEDS: Bisacodyl 5mg EC Tab PO SCH (22:46)
[2018-02-18] MEDS: Morphine 4 MG/ML VIAL IVP PRN ×3 (01:58→16:53)
[2018-02-18 08:10] LABS: BASO % 0.3 % (0.0-2.0); EOS # 0.2 K/uL (0.0-0.7); EOS % 4.7 % (0.0-4.0); HEMOGLOBIN 12.3 g/dL (12.0-18.0); LYMPH # 1.3 K/uL (1.0-4.3); LYMPH % 28.8 % (20.0-40.0); MEAN CELL VOLUME 84.5 fL (80.0-94.0); MEAN CORPUSCULAR HEMOGLOBIN 28.5 pg (27.0-31.0); MEAN CORPUSCULAR HGB CONC 33.7 g/dL (33.0-37.0); MEAN PLATELET VOLUME 8.5 fL (7.2-11.7); MONO # 0.5 K/uL (0.0-0.8); MONO % 10.6 % (0.0-10.0); NEUT # 2.6 K/uL (1.8-7.0); NEUT % 55.6 % (50.0-75.0); RBC 4.32 Mil/uL (4.40-5.90); RED CELL DISTRIBUTION WIDTH 15.7 % (11.5-14.5); WHITE BLOOD COUNT 4.6 K/uL (4.8-10.8)
[2018-02-18 08:19] LABS: BLOOD UREA NITROGEN 19 mg/dL (9-20); CALCIUM 8.5 mg/dl (8.6-10.4); GFR AFRICAN-AMERICAN > 60; GFR NON-AFRICAN AMERICAN > 60
--- NOTE | 2018-02-18 08:42 | CP.PCM.PN ---
Subjective - Date & Time of Evaluation Date of Evaluation: 02/18/18 Time of Evaluation: 08:40 - Subjective Subjective: Patient states he has a lot of pain in his right knee. Says he was able to stand with PT yesterday, but is unable to hop. Denies CP/SOb/dizziness Review of Systems - Review of Systems All systems: reviewed and no additional remarkable complaints except - Constitutional Additional comments: no fever/chills - Cardiovascular Cardiovascular: UNREMARKABLE - Respiratory Respiratory: UNREMARKABLE - Gastrointestinal Gastrointestinal: UNREMARKABLE - Musculoskeletal Musculoskeletal: UNREMARKABLE - Integumentary Integumentary: UNREMARKABLE - Neurological Neurological: UNREMARKABLE - Hematologic/Lymphatic Hematologic: UNREMARKABLE Objective - Vital Signs/Intake and Output Vital Signs (last 24 hours): Temp Pulse Resp BP Pulse Ox 97.6 F 63 20 124/64 96 02/18/18 07:00 02/18/18 07:00 02/18/18 07:00 02/18/18 07:00 02/18/18 07:00 Intake and Output: 02/18/18 02/18/18 06:59 18:59 Intake Total 140 Output Total 800 Balance -660 - Medications Medications: Current Medications Acetaminophen (Tylenol 325mg Tab) 650 mg PO Q6 PRN PRN Reason: Pain, Mild (1-3) Last Admin: 02/18/18 01:52 Dose: 650 mg Bisacodyl (Dulcolax) 10 mg PO HS [facility] Last Admin: 02/17/18 22:46 Dose: 10 mg Bupropion HCl (Wellbutrin Xl) 300 mg PO DAILY [facility] Last Admin: 02/17/18 13:22 Dose: 300 mg Carvedilol (Coreg) 25 mg PO BID [facility] Last Admin: 02/17/18 18:23 Dose: 25 mg Diazepam (Valium) 10 mg PO BID PRN PRN Reason: Agitation Digoxin (Digoxin) 0.125 mg PO DAILY@1800 [facility] Last Admin: 02/17/18 18:22 Dose: 0.125 mg Docusate Sodium (Colace) 100 mg PO TID [facility] Last Admin: 02/17/18 18:20 Dose: 100 mg Duloxetine HCl (Cymbalta) 60 mg PO BID [facility] Last Admin: 02/17/18 22:45 Dose: 60 mg Enoxaparin Sodium (Lovenox) 40 mg SC DAILY [facility] Last Admin: 02/17/18 11:54 Dose: 40 mg Ergocalciferol (Drisdol 50,000 Intl Units Cap) 1 cap PO QWK [facility] Finasteride (Proscar) 5 mg PO DAILY [facility] Last Admin: 02/17/18 09:08 Dose: 5 mg Furosemide (Lasix) 40 mg PO DAILY [facility] Last Admin: 02/17/18 09:07 Dose: 40 mg Home Med (Pregabalin [Lyrica]) 225 mg PO QID [facility] Metformin HCl (Glucophage) 850 mg PO BID [facility] Last Admin: 02/17/18 18:21 Dose: 850 mg Morphine Sulfate (Morphine) 4 mg IVP Q4 PRN PRN Reason: Pain, moderate (4-7) Last Admin: 02/18/18 06:31 Dose: 4 mg Oxycodone HCl (Oxycodone Immediate Release Tab) 10 mg PO BID PRN PRN Reason: Pain, moderate (4-7) Last Admin: 02/17/18 22:46 Dose: 10 mg Pantoprazole Sodium (Protonix Ec Tab) 40 mg PO DAILY [facility] Last Admin: 02/17/18 09:09 Dose: 40 mg Rosuvastatin Calcium (Crestor) 10 mg PO HS [facility] Last Admin: 02/17/18 22:45 Dose: 10 mg Spironolactone (Aldactone) 25 mg PO DAILY [facility] Last Admin: 02/17/18 09:05 Dose: 25 mg Tamsulosin HCl (Flomax) 0.4 mg PO DAILY [facility] Last Admin: 02/17/18 09:06 Dose: 0.4 mg - Labs Labs: 02/18/18 08:00 02/18/18 08:00 PT 13.1 SECONDS (9.7-12.2) H 02/16/18 21:37 INR 1.2 02/16/18 21:37 APTT 35 SECONDS (21-34) H 02/16/18 21:37 - Constitutional Appears: Well, No Acute Distress - Neck Exam Neck Exam: Full ROM - Respiratory Exam Respiratory Exam: NORMAL BREATHING PATTERN - Cardiovascular Exam Additional comments: +DP/PT pulses - Extremities Exam Additional comments: +ROM ankle/toes, sensation intact calves soft NT neg homans - Neurological Exam Neurological Exam: Alert, Awake, Oriented x3 Neuro motor strength exam: Right Lower Extremity: 5 - Psychiatric Exam Psychiatric exam: Normal Affect, Normal Mood - Skin Skin Exam: Dry, Intact, Normal Color, Warm Assessment and Plan (1) Closed fracture of lateral condyle of right femur Assessment & Plan: NWB knee immobilizer per Dr. Lei PT/OT rehab placement patient to follow up Dr. Lei as outpt prn Patient instructed to keep appointment with Dr. Lopez on 02/24 as it is imperative he follow up with his own surgeon post op VTE proph dopplers BLE prelim no DVT encourage OOB d/w Dr. Lei, agrees with above Status: Acute
--- NOTE | 2018-02-18 09:10 | VASCLAB ---
PROCEDURE: Lower Extremity Venous Duplex Exam. HISTORY: leg swelling r/o DVT PRIORS: None. TECHNIQUE: Bilateral common femoral, femoral, popliteal and posterior tibial, peroneal and great saphenous veins were evaluated. Flow was assessed with color Doppler, compressibility, assessment of phasic flow and augmentation response. Report prepared by Johnie Cruz, VICKI, RVT FINDINGS: RIGHT: 1. Common Femoral Vein: 1.1. Compressibility - Fully compressible: Thrombus - None : Flow - Phasic: Augmentation -Normal: Reflux - None. 2. Femoral Vein: 2.1. Compressibility - Fully compressible: Thrombus - None : Flow - Phasic: Augmentation -Normal: Reflux - None. 3. Popliteal Vein: 3.1. Compressibility - Fully compressible: Thrombus - None : Flow - Phasic: Augmentation -Normal: Reflux - None. 4. Posterior Tibial Vein: 4.1. Compressibility - Fully compressible: Thrombus - None: Flow - Phasic: Augmentation -Normal: Reflux - None. 5. Peroneal Vein: 5.1. Compressibility - Fully compressible: Thrombus - None: Flow - Phasic: Augmentation -Normal: Reflux - None. 6. Great Saphenous Vein: 6.1. Compressibility - Fully compressible: Thrombus - None: Flow - Phasic: Augmentation - Normal: Reflux - None. LEFT: 1. Common Femoral Vein: 1.1. Compressibility - Fully compressible: Thrombus - None: Flow - Phasic: Augmentation -Normal: Reflux - None. 2. Femoral Vein: 2.1. Compressibility - Fully compressible: Thrombus - None: Flow - Phasic: Augmentation -Normal: Reflux - None. 3. Popliteal Vein: 3.1. Compressibility - Fully compressible: Thrombus - None : Flow - Phasic: Augmentation -Normal: Reflux - None. 4. Posterior Tibial Vein: 4.1. Compressibility - Fully compressible: Thrombus - None: Flow - Phasic: Augmentation -Normal: Reflux - None. 5. Peroneal Vein: 5.1. Compressibility - Fully compressible: Thrombus - None: Flow - Phasic: Augmentation -Normal: Reflux - None. 6. Great Saphenous Vein: 6.1. Compressibility - Fully compressible: Thrombus - None: Flow - Phasic: Augmentation - Normal: Reflux - None. OTHER FINDINGS: Right: None significant. Left: None significant. IMPRESSION: Right: No evidence of deep or superficial vein thrombosis of the right lower extremity. Normal valve function noted of the right side. Left: No evidence of deep or superficial vein thrombosis of the left lower extremity. Normal valve function noted of the left side.
[2018-02-18] MEDS: Enoxaparin 40 mg Syringe SC SCH (09:36)
[2018-02-18] MEDS: buPROPion 150 mg/24 Hours XL Tab PO SCH (09:36)
[2018-02-18] MEDS: Pantoprazole 40 mg EC Tab PO SCH (09:36)
--- NOTE | 2018-02-18 10:38 | CP.PCM.PN ---
Subjective - Date & Time of Evaluation Date of Evaluation: 02/18/18 Time of Evaluation: 10:33 - Subjective Subjective: PGY2 progress note for Dr. Marcos 67 year old male with past medical history of arthiritis, a fib, chronic back pain with chornic narcotic use, CHF, COPD, depression, DM, HTN, HLD, recent TKR on right side in 12/2017 is admitted for right knee pain. CT scan on right LE showed distal femur fracture. Currently, pt is complaining of right knee pain and is aksing to have his pain medications increased. Patient denies having any CP, SOB, abd pain, N/V/D/C, F/C. Objective - Vital Signs/Intake and Output Vital Signs (last 24 hours): Temp Pulse Resp BP Pulse Ox 97.6 F 63 20 124/64 96 02/18/18 07:00 02/18/18 07:00 02/18/18 07:00 02/18/18 09:35 02/18/18 07:00 Intake and Output: 02/18/18 02/18/18 06:59 18:59 Intake Total 140 Output Total 800 Balance -660 - Medications Medications: Current Medications Acetaminophen (Tylenol 325mg Tab) 650 mg PO Q6 PRN PRN Reason: Pain, Mild (1-3) Last Admin: 02/18/18 01:52 Dose: 650 mg Bisacodyl (Dulcolax) 10 mg PO HS [facility] Last Admin: 02/17/18 22:46 Dose: 10 mg Bupropion HCl (Wellbutrin Xl) 300 mg PO DAILY [facility] Last Admin: 02/18/18 09:36 Dose: 300 mg Carvedilol (Coreg) 25 mg PO BID [facility] Last Admin: 02/18/18 09:33 Dose: 25 mg Diazepam (Valium) 10 mg PO BID PRN PRN Reason: Agitation Digoxin (Digoxin) 0.125 mg PO DAILY@1800 [facility] Last Admin: 02/17/18 18:22 Dose: 0.125 mg Docusate Sodium (Colace) 100 mg PO TID [facility] Last Admin: 02/18/18 09:33 Dose: 100 mg Duloxetine HCl (Cymbalta) 60 mg PO BID [facility] Last Admin: 02/18/18 09:34 Dose: 60 mg Enoxaparin Sodium (Lovenox) 40 mg SC DAILY [facility] Last Admin: 02/18/18 09:36 Dose: 40 mg Ergocalciferol (Drisdol 50,000 Intl Units Cap) 1 cap PO QWK [facility] Finasteride (Proscar) 5 mg PO DAILY [facility] Last Admin: 02/18/18 09:36 Dose: 5 mg Furosemide (Lasix) 40 mg PO DAILY [facility] Last Admin: 02/18/18 09:35 Dose: 40 mg Home Med (Pregabalin [Lyrica]) 225 mg PO QID [facility] Metformin HCl (Glucophage) 850 mg PO BID [facility] Last Admin: 02/18/18 09:35 Dose: 850 mg Morphine Sulfate (Morphine) 4 mg IVP Q4 PRN PRN Reason: Pain, moderate (4-7) Last Admin: 02/18/18 06:31 Dose: 4 mg Oxycodone HCl (Oxycodone Immediate Release Tab) 10 mg PO BID PRN PRN Reason: Pain, moderate (4-7) Last Admin: 02/17/18 22:46 Dose: 10 mg Pantoprazole Sodium (Protonix Ec Tab) 40 mg PO DAILY [facility] Last Admin: 02/18/18 09:36 Dose: 40 mg Rosuvastatin Calcium (Crestor) 10 mg PO HS [facility] Last Admin: 02/17/18 22:45 Dose: 10 mg Spironolactone (Aldactone) 25 mg PO DAILY [facility] Last Admin: 02/18/18 09:32 Dose: 25 mg Tamsulosin HCl (Flomax) 0.4 mg PO DAILY [facility] Last Admin: 02/18/18 09:35 Dose: 0.4 mg - Labs Labs: 02/18/18 08:00 02/18/18 08:00 PT 13.1 SECONDS (9.7-12.2) H 02/16/18 21:37 INR 1.2 02/16/18 21:37 APTT 35 SECONDS (21-34) H 02/16/18 21:37 - Constitutional Appears: Non-toxic, No Acute Distress - Head Exam Head Exam: ATRAUMATIC - ENT Exam ENT Exam: Mucous Membranes Moist - Respiratory Exam Respiratory Exam: Clear to Ausculation Bilateral. absent: Accessory Muscle Use , Rales, Rhonchi, Wheezes, Respiratory Distress - Cardiovascular Exam Cardiovascular Exam: REGULAR RHYTHM, +S1, +S2. absent: Gallop, Rubs, Murmur - GI/Abdominal Exam GI & Abdominal Exam: Soft, Normal Bowel Sounds. absent: Distended, Firm, Guarding, Rigid, Tenderness, Organomegaly - Extremities Exam Extremities Exam: absent: Pedal Edema, Tenderness Additional comments: right knee tenderness - Neurological Exam Neurological Exam: Alert, Awake, Oriented x3 - Psychiatric Exam Psychiatric exam: Normal Affect, Normal Mood - Skin Skin Exam: Dry, Intact, Normal Color, Warm Assessment and Plan - Assessment and Plan (Free Text) Assessment: Right knee fracture - Orth, Dr. Lei is consulted. No surgical intervention planned at this time. Per ortho note, pt is asked ot keep outpt appointment with Dr. Lopez on 02/24. - NWB. Continue PT/OT - LE dopplers are negative for DVT - CT of right knee showed distal femur fracture - Pain management with morphine pump, tylenol 650, oxycodone 10 mg po bid prn CHF - Previous echo on 01/20/18 showed EF of 55-60% with hypertensive heart disease and diastolic dysfunction - Cardio, Dr. Donahue is consulted - Continue Coreg, digoxin, lasixs, spironolactone HTN - Continue to monitor VS - Currently on lasixs, coreg, spironolactone Afib - Currently rate controlled - Will consider restarting xeralto HLD - Continue crestor - Lipid panel is normal DM - Continue home metformin - Last Hgb A1c is from 01/20/18 which was 7.2 Chronic back pain - Continue home medications: Valium and cymbalta - Continue pain management as mentioned above BPH - continue Proscar and flomax Prophylaxis - Lovenox - Protonix Dispo: Pt to be transferred to rehab tomorrow. Pt has been approved. All managements and orders per Dr. Marcos
[2018-02-18] MEDS: oxyCODONE 10 mg Immediate Release Tab PO PRN (13:18)
--- NOTE | 2018-02-18 16:26 | CP.PCM.PN ---
Subjective - Date & Time of Evaluation Date of Evaluation: 02/18/18 Time of Evaluation: 08:45 - Subjective Subjective: clinically same Objective - Vital Signs/Intake and Output Vital Signs (last 24 hours): Temp Pulse Resp BP Pulse Ox 97.2 F L 65 18 125/73 96 02/18/18 15:10 02/18/18 15:10 02/18/18 15:10 02/18/18 15:10 02/18/18 15:10 Intake and Output: 02/18/18 02/18/18 06:59 18:59 Intake Total 140 Output Total 800 Balance -660 - Medications Medications: Current Medications Acetaminophen (Tylenol 325mg Tab) 650 mg PO Q6 PRN PRN Reason: Pain, Mild (1-3) Last Admin: 02/18/18 01:52 Dose: 650 mg Bisacodyl (Dulcolax) 10 mg PO HS [facility] Last Admin: 02/17/18 22:46 Dose: 10 mg Bupropion HCl (Wellbutrin Xl) 300 mg PO DAILY [facility] Last Admin: 02/18/18 09:36 Dose: 300 mg Carvedilol (Coreg) 25 mg PO BID [facility] Last Admin: 02/18/18 09:33 Dose: 25 mg Diazepam (Valium) 10 mg PO BID PRN PRN Reason: Agitation Digoxin (Digoxin) 0.125 mg PO DAILY@1800 [facility] Last Admin: 02/17/18 18:22 Dose: 0.125 mg Docusate Sodium (Colace) 100 mg PO TID [facility] Last Admin: 02/18/18 13:18 Dose: 100 mg Duloxetine HCl (Cymbalta) 60 mg PO BID [facility] Last Admin: 02/18/18 09:34 Dose: 60 mg Enoxaparin Sodium (Lovenox) 40 mg SC DAILY [facility] Last Admin: 02/18/18 09:36 Dose: 40 mg Ergocalciferol (Drisdol 50,000 Intl Units Cap) 1 cap PO QWK [facility] Finasteride (Proscar) 5 mg PO DAILY [facility] Last Admin: 02/18/18 09:36 Dose: 5 mg Furosemide (Lasix) 40 mg PO DAILY [facility] Last Admin: 02/18/18 09:35 Dose: 40 mg Home Med (Pregabalin [Lyrica]) 225 mg PO QID [facility] Metformin HCl (Glucophage) 850 mg PO BID [facility] Last Admin: 02/18/18 09:35 Dose: 850 mg Morphine Sulfate (Morphine) 4 mg IVP Q4 PRN PRN Reason: Pain, moderate (4-7) Last Admin: 02/18/18 06:31 Dose: 4 mg Oxycodone HCl (Oxycodone Immediate Release Tab) 10 mg PO BID PRN PRN Reason: Pain, moderate (4-7) Last Admin: 02/18/18 13:18 Dose: 10 mg Pantoprazole Sodium (Protonix Ec Tab) 40 mg PO DAILY [facility] Last Admin: 02/18/18 09:36 Dose: 40 mg Rosuvastatin Calcium (Crestor) 10 mg PO HS [facility] Last Admin: 02/17/18 22:45 Dose: 10 mg Spironolactone (Aldactone) 25 mg PO DAILY [facility] Last Admin: 02/18/18 09:32 Dose: 25 mg Tamsulosin HCl (Flomax) 0.4 mg PO DAILY [facility] Last Admin: 02/18/18 09:35 Dose: 0.4 mg - Labs Labs: 02/18/18 08:00 02/18/18 08:00 PT 13.1 SECONDS (9.7-12.2) H 02/16/18 21:37 INR 1.2 02/16/18 21:37 APTT 35 SECONDS (21-34) H 02/16/18 21:37 - Constitutional Appears: Well - Head Exam Head Exam: ATRAUMATIC, NORMAL INSPECTION, NORMOCEPHALIC - Eye Exam Eye Exam: EOMI, Normal appearance, PERRL Pupil Exam: NORMAL ACCOMODATION, PERRL - ENT Exam ENT Exam: Mucous Membranes Moist, Normal Exam - Neck Exam Neck Exam: Full ROM, Normal Inspection. absent: Lymphadenopathy - Respiratory Exam Respiratory Exam: Decreased Breath Sounds - Cardiovascular Exam Cardiovascular Exam: REGULAR RHYTHM, +S1, +S2 - GI/Abdominal Exam GI & Abdominal Exam: Soft, Diminished Bowel Sounds - Rectal Exam Rectal Exam: Deferred
[2018-02-18 17:56] VITALS: PULSE 65
[2018-02-18] MEDS: Digoxin 125 mcg (0.125 mg) Tab PO SCH (17:56)
[2018-02-18] MEDS: Bisacodyl 5mg EC Tab PO SCH (21:37)
[2018-02-19] MEDS: oxyCODONE 10 mg Immediate Release Tab PO PRN ×3 (00:55→14:29)
[2018-02-19 08:18] LABS: BASO % 0.4 % (0.0-2.0); EOS # 0.2 K/uL (0.0-0.7); EOS % 4.2 % (0.0-4.0); HEMOGLOBIN 12.9 g/dL (12.0-18.0); LYMPH # 1.3 K/uL (1.0-4.3); MEAN CELL VOLUME 84.1 fL (80.0-94.0); MEAN CORPUSCULAR HGB CONC 33.3 g/dL (33.0-37.0); MEAN PLATELET VOLUME 8.4 fL (7.2-11.7); MONO # 0.5 K/uL (0.0-0.8); MONO % 9.9 % (0.0-10.0); NEUT # 3.2 K/uL (1.8-7.0); NEUT % 60.5 % (50.0-75.0); NRBC % 0.2 % (0.0-2.0); RBC 4.62 Mil/uL (4.40-5.90); RED CELL DISTRIBUTION WIDTH 15.4 % (11.5-14.5); WHITE BLOOD COUNT 5.3 K/uL (4.8-10.8)
[2018-02-19 08:37] LABS: ALB/GLOB RATIO 1.1 (1.0-2.1); ALBUMIN 3.6 g/dL (3.5-5.0); ALT/SGPT 12 U/L (21-72); AST/SGOT 17 U/L (17-59); BLOOD UREA NITROGEN 24 mg/dL (9-20); CALCIUM 8.6 mg/dl (8.6-10.4); GFR AFRICAN-AMERICAN > 60; GFR NON-AFRICAN AMERICAN > 60
[2018-02-19] MEDS: Pantoprazole 40 mg EC Tab PO SCH (10:03)
[2018-02-19] MEDS: buPROPion 150 mg/24 Hours XL Tab PO SCH (10:04)
[2018-02-19] MEDS: Enoxaparin 40 mg Syringe SC SCH (10:12)
--- NOTE | 2018-02-19 11:39 | CP.PCM.PN ---
Subjective - Date & Time of Evaluation Date of Evaluation: 02/19/18 Time of Evaluation: 09:05 - Subjective Subjective: Medicine progress note for Dr. Marcos's service Patient seen and examined. Patient states he is working well with physical therapy. Patient states he will see Dr. Lopez next Friday and is concerned about transportation from rehab to the office. Patient has no other complaints at this time. Objective - Vital Signs/Intake and Output Vital Signs (last 24 hours): Temp Pulse Resp BP Pulse Ox 97.7 F 69 22 118/70 93 L 02/19/18 07:00 02/19/18 10:01 02/19/18 07:00 02/19/18 10:03 02/19/18 07:00 - Medications Medications: Current Medications Acetaminophen (Tylenol 325mg Tab) 650 mg PO Q6 PRN PRN Reason: Pain, Mild (1-3) Last Admin: 02/18/18 01:52 Dose: 650 mg Bisacodyl (Dulcolax) 10 mg PO HS [facility] Last Admin: 02/18/18 21:37 Dose: 10 mg Bupropion HCl (Wellbutrin Xl) 300 mg PO DAILY [facility] Last Admin: 02/19/18 10:04 Dose: 300 mg Carvedilol (Coreg) 25 mg PO BID [facility] Last Admin: 02/18/18 17:55 Dose: 25 mg Diazepam (Valium) 10 mg PO BID PRN PRN Reason: Agitation Digoxin (Digoxin) 0.125 mg PO DAILY@1800 [facility] Last Admin: 02/18/18 17:56 Dose: 0.125 mg Docusate Sodium (Colace) 100 mg PO TID [facility] Last Admin: 02/19/18 10:02 Dose: 100 mg Duloxetine HCl (Cymbalta) 60 mg PO BID [facility] Last Admin: 02/18/18 17:55 Dose: 60 mg Enoxaparin Sodium (Lovenox) 40 mg SC DAILY [facility] Last Admin: 02/19/18 10:12 Dose: 40 mg Ergocalciferol (Drisdol 50,000 Intl Units Cap) 1 cap PO QWK [facility] Finasteride (Proscar) 5 mg PO DAILY [facility] Last Admin: 02/19/18 10:03 Dose: 5 mg Furosemide (Lasix) 40 mg PO DAILY [facility] Last Admin: 02/19/18 10:03 Dose: 40 mg Metformin HCl (Glucophage) 850 mg PO BID [facility] Last Admin: 02/19/18 10:04 Dose: 850 mg Morphine Sulfate (Morphine) 4 mg IVP Q4 PRN PRN Reason: Pain, moderate (4-7) Last Admin: 02/18/18 16:53 Dose: 4 mg Oxycodone HCl (Oxycodone Immediate Release Tab) 10 mg PO BID PRN PRN Reason: Pain, moderate (4-7) Last Admin: 02/19/18 10:10 Dose: 10 mg Pantoprazole Sodium (Protonix Ec Tab) 40 mg PO DAILY [facility] Last Admin: 02/19/18 10:03 Dose: 40 mg Pregabalin (Lyrica) 75 mg PO TID [facility] Last Admin: 02/19/18 10:02 Dose: 75 mg Rosuvastatin Calcium (Crestor) 10 mg PO HS [facility] Last Admin: 02/18/18 21:37 Dose: 10 mg Spironolactone (Aldactone) 25 mg PO DAILY [facility] Last Admin: 02/18/18 09:32 Dose: 25 mg Tamsulosin HCl (Flomax) 0.4 mg PO DAILY [facility] Last Admin: 02/19/18 10:09 Dose: 0.4 mg - Labs Labs: 02/19/18 08:06 02/19/18 08:06 PT 13.1 SECONDS (9.7-12.2) H 02/16/18 21:37 INR 1.2 02/16/18 21:37 APTT 35 SECONDS (21-34) H 02/16/18 21:37 - Constitutional Appears: Non-toxic, No Acute Distress - Head Exam Head Exam: ATRAUMATIC, NORMOCEPHALIC - Eye Exam Eye Exam: EOMI - ENT Exam ENT Exam: Mucous Membranes Moist - Respiratory Exam Respiratory Exam: Clear to Ausculation Bilateral - Cardiovascular Exam Cardiovascular Exam: +S1, +S2 - GI/Abdominal Exam GI & Abdominal Exam: Soft, Normal Bowel Sounds. absent: Tenderness - Extremities Exam Additional comments: right leg wrapped in trish wrap with knee immobilizer in place - Neurological Exam Neurological Exam: Alert, Awake - Psychiatric Exam Psychiatric exam: Normal Affect - Skin Skin Exam: Warm Assessment and Plan - Assessment and Plan (Free Text) Assessment: Right knee fracture - Mary, Dr. Lei is consulted. No surgical intervention planned at this time. Per ortho note, pt is asked ot keep outpt appointment with Dr. Lopez on 02/24. - NWB. Continue PT/OT - LE dopplers are negative for DVT - CT of right knee showed distal femur fracture - Pain management with morphine pump, tylenol 650, oxycodone 10 mg po bid prn CHF - Previous echo on 01/20/18 showed EF of 55-60% with hypertensive heart disease and diastolic dysfunction - Cardio, Dr. Donahue is consulted - Continue Coreg, digoxin, lasixs, spironolactone HTN - Continue to monitor VS - Currently on lasixs, coreg, spironolactone Afib - Currently rate controlled - Will restart xeralto HLD - Continue crestor - Lipid panel is normal DM - Continue home metformin - Last Hgb A1c is from 01/20/18 which was 7.2 Chronic back pain - Continue home medications: Valium and cymbalta - Continue pain management as mentioned above BPH - continue Proscar and flomax Prophylaxis - restart xarelto All managements and orders per Dr. Marcos Patient is stable for discharge to rehab unit per Dr. Marcos. Patient is to see Dr. Lopez on 02/24/18 for follow up appointment. Patient is to resume other home medications. Patient is to follow up with PMD within next week. Patient is to return to the ED if symptoms reoccur or worsen.
[2018-02-19 15:57] VITALS: BP 121/72; PULSE 70; RESP 20; TEMP 97.3; O2SAT 96
--- NOTE | 2018-02-19 18:03 | PCM.HF ---
Heart Failure Core Measure - Heart Failure Ejection Fraction: 40 % or Greater JOSH Inhibitor Prescribed: No Contraindication/Reason for not providing: EF>50 Beta-Jeni Prescribed: Carvedilol Angiotensin II Receptor Jeni Prescribed: No Contraindication/Reason for not providing: EF>50 AnticoagulationTherapy for Atrial Fibrillation/Atrialflutter: Yes Aldosterone Antagonist Prescribed: Yes Hydralazine Nitrate Prescribed: No Contraindication/Reason for not providing: EF>45 Implantable Cardioverter Defibrillator Therapy: No Contraindication/Reason for not providing: EF>45 Cardiac Resynchronization Therapy Prescribed: No Contraindication/Reason for not providing: EF>45 - Follow up Will be discharged to: [facility] Follow Up Date (must be within 7 days from discharge): 02/23/18 Follow Up Time: 09:00
[2018-02-23] MEDS ORDERED: Ergocalciferol 50,000 Intl Units Cap PO SCH (10:00)
== END 2018-02-19 16:06 | DRG 534 ==
LOC: C.ER 17:36 → C.9E 21:04 → C.6T 22:17
PROVIDERS: ADMIT Internal Medicine Nephrology; ATTEND Internal Medicine Nephrology
DX: S72.401A Unspecified fracture of lower end of right femur, initial encounter for closed fracture (principal); G89.29 Other chronic pain; E78.5 Hyperlipidemia, unspecified; I48.2 Chronic atrial fibrillation; J44.9 Chronic obstructive pulmonary disease, unspecified; Z79.84 Long term (current) use of oral hypoglycemic drugs; I11.0 Hypertensive heart disease with heart failure; I50.9 Heart failure, unspecified; N40.0 Benign prostatic hyperplasia without lower urinary tract symptoms; E11.9 Type 2 diabetes mellitus without complications; Z79.4 Long term (current) use of insulin; Z87.891 Personal history of nicotine dependence; W19.XXXA Unspecified fall, initial encounter; Z96.651 Presence of right artificial knee joint; Z87.01 Personal history of pneumonia (recurrent)

== ENCOUNTER 2018-03-23 13:38 | Inpatient (IN) | payer MEDICARE, BC ==
[2018-03-23 13:38] VITALS: BMI 38.7
--- NOTE | 2018-03-23 14:27 | C.PDOC ---
History Of Present Illness 68-year-old male, PMHx includes Diabetes (neuropathy), Atrial Fibrillation, Hypertension. Congestive Heart Failure, Hypertension, COPD, Fracture ribs, Chronic knee/back pain, Anxiety, GERD, Depressive disorder, is brought to the emergency department from [facility] s/p fall. Patient reports he may have fallen. He remembers slipping on juice, but denies any head/neck injuries. He denies nausea/vomiting, diarrhea, fever, chills, chest pain or shortness of breath. No other complaints at this time. Of note, pt had a knee replacement by Dr Adalid Lopez in [place]. PMD Da Marcos MD. - HPI Time Seen by Provider: 03/23/18 13:48 Chief Complaint (Nursing): Trauma History Per: Patient, Other (correction papers) History/Exam Limitations: no limitations Injury Occurred (Timing): Just Before Arrival Past Medical History Reviewed: Historical Data, Nursing Documentation, Vital Signs Vital Signs: Last Vital Signs Temp 98.0 F 03/24/18 16:00 Pulse 60 03/24/18 16:00 Resp 20 03/24/18 16:00 BP 129/70 03/24/18 17:35 Pulse Ox 94 L 03/24/18 16:00 - Medical History PMH: Arthritis, Atrial Fibrillation, Back Problems, Cardia Arrhythmia (atrial fib), CHF, COPD, Depression, Diabetes, Fractures ( RIBS RIGHT ELBOW), HTN, Hypercholesterolemia, Pneumonia (10 YEARS AGO), Chronic Pain Surgical History: Back Surgery (MULTILEVEL DISC HERNIATIONS,), Endoscopy - [facility] Procedures CLOSED ENDOSCOPIC BIOPSY OF LUNG (03/16/13) DESTRUCT-KNEE LESION NEC (10/19/03) EXCIS KNEE SEMILUN CARTL (10/19/03) EXCISION OF DESCENDING COLON, ENDO, DIAGN (01/22/16) INJECT STEROID (10/09/04) INJECTION INTO JOINT (10/09/04) LYMPHATIC STRUCT BIOPSY (03/16/13) NEBULIZER THERAPY (08/03/13) OCCUPATIONAL THERAPY (08/03/13) PHYSICAL THERAPY NEC (08/03/13) PSYCHIAT DRUG THERAP NEC (09/28/12) RESECTION OF PROSTATE, ENDO (03/06/17) Family History: States: No Known Family Hx - Social History Hx Tobacco Use: No Hx Alcohol Use: No Hx Substance Use: Yes (Quit) - Immunization History Hx Tetanus Toxoid Vaccination: Yes Hx Influenza Vaccination: Yes Hx Pneumococcal Vaccination: Yes Review Of Systems Constitutional: Negative for: Fever, Chills Cardiovascular: Negative for: Chest Pain, Palpitations Respiratory: Negative for: Shortness of Breath Gastrointestinal: Negative for: Vomiting Skin: Negative for: Rash Neurological: Negative for: Weakness, Numbness, Headache, Dizziness Physical Exam - Physical Exam Appears: Non-toxic, No Acute Distress, Confused, Chronically Ill, Other (Sleepy , but arousable. Hypoxic (at baseline)) Skin: Normal Color, Warm, Dry, No Rash Head: Normacephalic Eye(s): bilateral: Normal Inspection Nose: Normal Oral Mucosa: Moist Tongue: Normal Appearing Lips: Normal Appearing Teeth: Normal Dentition Throat: Normal Neck: Normal Respiratory: Decreased Breath Sounds, Rales, Wheezing Gastrointestinal/Abdominal: Normal Exam Back: Normal Inspection Male Genital: Normal Inspection Extremity: Normal ROM, No Deformity, Other (There is a healing incisional scar to the right knee, which is more warm and swollen compared to the left knee.) Extremity: Right: Other (right leg more swollen than left ), Bilateral: Atraumatic Pulses: Left Dorsalis Pedis: Normal, Right Dorsalis Pedis: Normal ED Course And Treatment - Laboratory Results Result Diagrams: 03/23/18 14:32 03/23/18 14:32 ECG: Interpreted By Me, Viewed By Me ECG Rhythm: Sinus Rhythm ECG Interpretation: No Acute Changes Interpretation Of ECG: Low-voltage. No ischemic changes. DC: 152. Qt: 376. Qtc:417 Rate From EC O2 Sat by Pulse Oximetry: 90 (RA) Pulse Ox Interpretation: Normal - CT Scan/US CT Head Other Rad Studies (CT/US): Interpreted By Me CT/US Interpretation: B/L moderate to severe pulmonary congestion. Accession No. : [id number]. Patient Name / ID : MELINA BOYKIN / [id number]. Exam Date : 03/23/2018 15:01:39 ( Approved ). Study Comment : Sex / Age : M / 68Y. Creator : Anand Medina MD. Dictator : Regional Hr Manager : Differential Repairer : Anand Medina MD. Approver2 : Report Date : 03/23/2018 15:27:09. My Comment : . PROCEDURE: CT HEAD WITHOUT CONTRAST. HISTORY: Status post fall. COMPARISON: Comparison made with prior CT scan of the brain dated 2015. TECHNIQUE: Axial computed tomography images were obtained through the head/brain without intravenous contrast. Radiation dose: Total exam DLP = 1362.08 mGy-cm. This CT exam was performed using one or more of the following dose reduction techniques: Automated exposure control, adjustment of the mA and/ or kV according to patient size, and/or use of iterative reconstruction technique. Note that this examination is limited by motion artifact. FINDINGS : HEMORRHAGE: No acute parenchymal, subarachnoid or extra-axial hemorrhage. BRAIN: Mild diffuse/confluent chronic periventricular white matter ischemic changes are present. Moderate generalized volume loss. VENTRICLES: No obstructive hydrocephalus. CALVARIUM: There are no acute calvarial fractures. Move newsome the. PARANASAL SINUSES: Minor mucosal thickening seen within a few ethmoid air cells. The the. MASTOID AIR CELLS: Unremarkable as visualized. No inflammatory changes. . Probable osteoma within one of the right sided posterior mastoid air cells. OTHER FINDINGS: None. IMPRESSION: Study is limited by motion artifact. No acute intracranial hemorrhage. Mild chronic white matter ischemic changes. Moderate generalized volume loss. Medical Decision Making Medical Decision Making: Pror Visits Notes and records from previous visits were reviewed. Echocardiogram from 2017 reviewed. Patient has an EF 55-60%. No wall motion abnormalities Plan: * CT Head * EKG * Bloodwork * Chest X-Ray * Reassess and Disposition CT Chest ordered to r/o pneumonia Case discussed with Dr Gumaro Marcos, will admit patient to his service, ortho consult with Dr Lei for septic arthritis, right knee. Disposition Counseled Patient/Family Regarding: Diagnosis - Disposition Disposition: HOSPITALIZED Disposition Time: 23:29 Condition: GOOD - Clinical Impression Clinical Impression: Pneumonia, Septic arthritis
[2018-03-23 14:46] LABS: BASO % 0.2 % (0.0-2.0); EOS % 0.5 % (0.0-4.0); HEMOGLOBIN 13.1 g/dL (12.0-18.0); LYMPH % 11.2 % (20.0-40.0); MEAN CORPUSCULAR HEMOGLOBIN 27.4 pg (27.0-31.0); MEAN CORPUSCULAR HGB CONC 33.6 g/dL (33.0-37.0); MEAN PLATELET VOLUME 9.1 fL (7.2-11.7); MONO # 0.8 K/uL (0.0-0.8); MONO % 8.6 % (0.0-10.0); NEUT # 7.2 K/uL (1.8-7.0); NEUT % 79.5 % (50.0-75.0); RBC 4.79 Mil/uL (4.40-5.90)
[2018-03-23 14:48] LABS: MEAN CELL VOLUME 81.5 fL (80.0-94.0)
--- NOTE | 2018-03-23 14:51 | RAD ---
PROCEDURE: CHEST RADIOGRAPH, 1 VIEW HISTORY: Palpations COMPARISON: Chest radiograph dated 01/20/2018 FINDINGS: LUNGS: Pulmonary vascular congestion. No focal consolidation. PLEURA: No pneumothorax or pleural fluid seen. CARDIOVASCULAR: Cardiomediastinal silhouette stably enlarged. OSSEOUS STRUCTURES: Unchanged. VISUALIZED UPPER ABDOMEN: Normal. OTHER FINDINGS: None. IMPRESSION: Pulmonary vascular congestion. No focal consolidation or pleural effusion.
[2018-03-23 15:10] LABS: ALBUMIN 3.4 g/dL (3.5-5.0); ALT/SGPT 17 U/L (21-72); AST/SGOT 18 U/L (17-59); BLOOD UREA NITROGEN 18 mg/dL (9-20); CALCIUM 8.6 mg/dl (8.6-10.4); GFR AFRICAN-AMERICAN > 60; GFR NON-AFRICAN AMERICAN > 60
--- NOTE | 2018-03-23 15:28 | CT ---
PROCEDURE: CT HEAD WITHOUT CONTRAST. HISTORY: Status post fall COMPARISON: Comparison made with prior CT scan of the brain dated 07/04/2016. TECHNIQUE: Axial computed tomography images were obtained through the head/brain without intravenous contrast. Radiation dose: Total exam DLP = 1362.08 mGy-cm. This CT exam was performed using one or more of the following dose reduction techniques: Automated exposure control, adjustment of the mA and/or kV according to patient size, and/or use of iterative reconstruction technique. Note that this examination is limited by motion artifact. FINDINGS: HEMORRHAGE: No acute parenchymal, subarachnoid or extra-axial hemorrhage. BRAIN: Mild diffuse/confluent chronic periventricular white matter ischemic changes are present. Moderate generalized volume loss. VENTRICLES: No obstructive hydrocephalus. CALVARIUM: There are no acute calvarial fractures. Move newsome the PARANASAL SINUSES: Minor mucosal thickening seen within a few ethmoid air cells. The the MASTOID AIR CELLS: Unremarkable as visualized. No inflammatory changes. . Probable osteoma within one of the right sided posterior mastoid air cells OTHER FINDINGS: None. IMPRESSION: Study is limited by motion artifact. No acute intracranial hemorrhage. Mild chronic white matter ischemic changes. Moderate generalized volume loss.
[2018-03-23 15:58] LABS: B-TYPE NATRIURETIC PEPTIDE 417 pg/mL (0-900)
--- NOTE | 2018-03-23 16:31 | CT ---
PROCEDURE: CT Chest without contrast HISTORY: b/l infiltrates COMPARISON: 01/20/2018 TECHNIQUE: Contiguous axial images were obtained through the chest without intravenous contrast enhancement. Sagittal and coronal reconstructions were performed. Radiation dose (DLP): 797.14 mGy-cm. This CT exam was performed using one or more of the following dose reduction techniques: Automated exposure control, adjustment of the mA and/or kV according to patient size, and/or use of iterative reconstruction technique. FINDINGS: LUNGS: Increasing left lower lobe infiltrate. Slight increase in the degree of consolidation, possibly atelectasis, in the posterior segment of the right upper lobe. No new infiltrate. No pulmonary mass. Dependent atelectasis in the right lower lobe. Cylindrical bronchiectasis in the apical and posterior segments of the right upper lobe. Nonspecific. MEDIASTINUM: Unremarkable thoracic aorta. No aneurysm. Normal sized heart. Main pulmonary artery unremarkable. No vascular congestion. No lymphadenopathy. PLEURA: No pleural fluid. No pneumothorax. BONES: No fracture. No destructive lesion. There is a stimulator lead noted in the mid thoracic spinal canal. UPPER ABDOMEN: Splenomegaly. Nonspecific 10 mm low-attenuation lesion in the anterior right hepatic lobe, unchanged. OTHER FINDINGS: None. IMPRESSION: Increasing right upper lobe bronchiectasis. Increasing left lower lobe infiltrate. Slight increase infiltrate/atelectasis posterior segment right upper lobe. Splenomegaly.
[2018-03-23] MEDS ORDERED: Moxifloxacin IV 400mg/250ml NS 400 MG/250 ML BAG IVPB ONE (16:43)
[2018-03-23] MEDS ORDERED: Ciprofloxacin 400mg/200ml D5W 400 MG/200 ML BAG IVPB STA (16:55)
[2018-03-23] MEDS ORDERED: Ciprofloxacin 400mg/200ml D5W 400 MG/200 ML BAG IVPB ONE (17:03)
[2018-03-23 18:49] LABS: B-TYPE NATRIURETIC PEPTIDE 359 pg/mL (0-900)
[2018-03-23] MEDS ORDERED: Vancomycin 1 GM 1 GM/250 ML BAG IVPB STA (19:45)
[2018-03-23] MEDS ORDERED: oxyCODONE 10 mg Immediate Release Tab PO SCH (20:00)
[2018-03-23] MEDS ORDERED: Piperacillin/Tazobact 3.375 gm 100 ML IVPB ONE (20:04)
[2018-03-23] MEDS: Piperacillin/Tazobact 3.375 GM in Sodium Chloride 100 ML IVPB SCH (20:08)
[2018-03-23] MEDS ORDERED: Vancomycin 1 gm/NS 200 ml 1 GM/200 ML BAG IVPB ONE (21:00)
[2018-03-23] MEDS ORDERED: MethylPREDNISolone 40 mg Vial ONE (21:23)
[2018-03-23] MEDS: MethylPREDNISolone 40 mg Vial IVP SCH (21:28)
[2018-03-24] MEDS: Albuterol-Ipratrop 3 mg / 0.5 (3 ml) UD INH SCH ×7 (00:03→23:38)
[2018-03-24] MEDS: Piperacillin/Tazobact 3.375 GM in Sodium Chloride 100 ML IVPB SCH ×3 (04:00→19:13)
[2018-03-24] MEDS: oxyCODONE 5 mg Immediate Release Tab PO SCH ×5 (04:30→20:00)
[2018-03-24] MEDS: MethylPREDNISolone 40 mg Vial IVP SCH ×3 (05:55→21:06)
[2018-03-24] MEDS ORDERED: Morphine 60 mg SR Tab PO SCH (10:00)
[2018-03-24] MEDS ORDERED: Ergocalciferol 50,000 Intl Units Cap PO SCH (10:00)
[2018-03-24] MEDS ORDERED: Home Med 1 UNIT (Naloxegol Oxalate [Movantik] 25 MG) PO SCH ×2 (10:00)
[2018-03-24] MEDS: Pantoprazole 20 mg EC Tab PO SCH (11:00)
[2018-03-24] MEDS: buPROPion 150 mg/24 Hours XL Tab PO SCH (11:00)
[2018-03-24] MEDS: Enoxaparin 40 mg Syringe SC SCH (11:00)
[2018-03-24] MEDS: Morphine 30 mg SR Tab PO SCH (12:08)
--- NOTE | 2018-03-24 12:30 | CARD ---
APPROVED REPORT EKG Measurement Heart [id number] [id number] <Conclusion> Normal sinus rhythm Low voltage QRS Borderline ECG
--- NOTE | 2018-03-24 15:35 | CP.PCM.CON ---
History of Present Illness - History of Present Illness History of Present Illness: Consulted for: Pneumonia A 68 year old male with PMHx of DM, HTN, CHF, A.Fib, and pneumonia, was sent to the ED by [facility] for [facility]. Patient states that in the ED he was found to have pneumonia. Patient states his roommate at the [facility] has been sick and coughing a lot. Patient states he has been slipping a lot at the [facility] since his knee replacement. He has been using a wheelchair frequently to get around. Patient denies any head trauma. Patient states he did not have a problem with falls prior to knee replacement surgery. Patient denies chest pain, shortness of breath, cough, nausea, vomiting, diarrhea, constipation, abdominal pain, fever, chills, or dizziness. PMHx: DM, HTN, CHF, A.Fib, previous episodes of pneumonia, COPD PSH: Right knee replacement Dec 2017, laminectomy for spinal stenosis 1998 Allergies: NKDA Medications: Oxycodone 15mg Q4, Lyrica 225mg QID, Valium 10mg. Metformin 850mg BID, Wellbutrin 300mg, Lasix 40mg, Finasteride 5mg, Colace 100mg TID, Digoxin 125mcg, Cymbalta 60mg BID, Vitamin D3, Coreg 25mg BID, Flomax 0.4mg , Spirnolactone 25mg, Crestor 10mg, Xarelto 20mg, MS Contin 60mg BID Fam HX: Unknown Social Hx: Lives alone, retired. Denies tobacco use in past or present. Denies recent alcohol or illicit drug use. Assessment/Plan: 1. Pneumonia CXR 03/23: Finding of pulmonary vascular congestion. No focal consolidation or pleural effusion. Chest CT 03/23: Increaisn right upper lobe bronchiectasis. Increasing left lower lobe infiltrate. Slight increase infiltrate/atelectasis posterior segment right upper lobe. - Continue Piperacillin/Tazobactam 2. COPD - Continue Solumedrol - Continue Duoneb 3. Diabetes Mellitus - Management by Primary Team 4. HTN - Management by Primary Team 5. CHF - Management by Primary Team Past Patient History - Infectious Disease Hx of Infectious Diseases: None - Tetanus Immunizations Tetanus Immunization: Unknown - Past Medical History & Family History Past Medical History?: Yes - Past Social History Smoking Status: Never Smoked - CARDIAC Hx Atrial Fibrillation: Yes Hx Cardia Arrhythmia: Yes (atrial fib) Hx Congestive Heart Failure: Yes Hx Hypercholesterolemia: Yes Hx Hypertension: Yes - PULMONARY Hx Chronic Obstructive Pulmonary Disease (COPD): Yes Hx Pneumonia: Yes (10 YEARS AGO) - NEUROLOGICAL Hx Neurological Disorder: Yes (PERIPHERAL NEUROPATHY) Other/Comment: hand tremors DUE TO NERVES - HEENT Hx HEENT Problems: No - RENAL Hx Chronic Kidney Disease: No - ENDOCRINE/METABOLIC Hx Diabetes Mellitus Type 2: Yes - HEMATOLOGICAL/ONCOLOGICAL Hx Blood Disorders: No - INTEGUMENTARY Other/Comment: Mass, scalp - MUSCULOSKELETAL/RHEUMATOLOGICAL Hx Falls: Yes - GENITOURINARY/GYNECOLOGICAL Hx Genitourinary Disorders: Yes (+LEGIONELLA IN THE URINE,FREQUENCY,) Hx Prostate Problems: Yes (BPH) - PSYCHIATRIC Hx Substance Use: No - SURGICAL HISTORY Hx Surgeries: Yes Hx Arthroscopy: Yes (BILAT KNEES) Hx Musculoskeletal Surgery: Yes (LUMBAR LAMINECTOMY) Hx Open Reduction Internal Fixation: Yes (RIGHT ELBOW) Hx Orthopedic Surgery: (RT knee 12/18/17) Other/Comment: INSERTION PAIN CONTROL STIMULATOR LUMBAR - ANESTHESIA Hx Anesthesia: Yes Hx Anesthesia Reactions: No Hx Malignant Hyperthermia: No Has any member of the family had a problem w/ anesthesia?: No Meds Allergies/Adverse Reactions: Allergies Allergy/AdvReac Type Severity Reaction Status Date / Time No Known Allergies Allergy Verified 01/20/18 08:12 - Medications Medications: Current Medications Albuterol/Ipratropium (Duoneb 3 Mg/0.5 Mg (3 Ml) Ud) 3 ml INH RQ4 [facility] Last Admin: 03/24/18 11:37 Dose: Not Given Bupropion HCl (Wellbutrin Xl) 300 mg PO DAILY [facility] Last Admin: 03/24/18 11:00 Dose: 300 mg Carvedilol (Coreg) 25 mg PO BID [facility] Last Admin: 03/24/18 11:00 Dose: 25 mg Diazepam (Valium) 10 mg PO DAILY [facility] Last Admin: 03/23/18 20:20 Dose: 10 mg Digoxin (Digoxin) 0.125 mg PO DAILY@1800 [facility] Docusate Sodium (Colace) 100 mg PO TID [facility] Last Admin: 03/24/18 14:02 Dose: 100 mg Duloxetine HCl (Cymbalta) 60 mg PO BID [facility] Last Admin: 03/24/18 11:00 Dose: 60 mg Enoxaparin Sodium (Lovenox) 40 mg SC DAILY [facility] Last Admin: 03/24/18 11:00 Dose: 40 mg Ergocalciferol (Drisdol 50,000 Intl Units Cap) 1 cap PO Q7D [facility] Last Admin: 03/24/18 11:13 Dose: 1 cap Famotidine (Pepcid) 20 mg PO DAILY [facility] Last Admin: 03/24/18 10:59 Dose: 20 mg Finasteride (Proscar) 5 mg PO DAILY [facility] Last Admin: 03/24/18 11:00 Dose: 5 mg Furosemide (Lasix) 40 mg PO DAILY [facility] Last Admin: 03/24/18 10:59 Dose: 40 mg Piperacillin Sod/Tazobactam (Sod 3.375 gm/ Sodium Chloride) 100 mls @ 200 mls/ hr IVPB Q8H [facility] PRN Reason: Protocol Last Admin: 03/24/18 12:18 Dose: 200 mls/hr Metformin HCl (Glucophage) 850 mg PO BID [facility] Last Admin: 03/24/18 11:00 Dose: 850 mg Methylprednisolone (Solu-Medrol) 40 mg IVP Q8 [facility] Last Admin: 03/24/18 14:02 Dose: 40 mg Morphine Sulfate (Morphine Extended Release Tab) 60 mg PO Q12H [facility] Last Admin: 03/24/18 12:08 Dose: 60 mg Oxycodone HCl (Oxycodone Immediate Release Tab) 10 mg PO BID PRN PRN Reason: Pain, moderate (4-7) Oxycodone HCl (Oxycodone Immediate Release Tab) 15 mg PO Q4 [facility] Last Admin: 03/24/18 12:31 Dose: Not Given Pantoprazole Sodium (Protonix Ec Tab) 20 mg PO DAILY [facility] Last Admin: 03/24/18 11:00 Dose: 20 mg Pregabalin (Lyrica) 225 mg PO QID [facility] Last Admin: 03/24/18 14:01 Dose: 225 mg Rivaroxaban (Xarelto) 20 mg PO DAILY [facility] Last Admin: 03/24/18 11:00 Dose: 20 mg Rosuvastatin Calcium (Crestor) 10 mg PO HS [facility] Last Admin: 03/23/18 22:03 Dose: 10 mg Spironolactone (Aldactone) 25 mg PO DAILY [facility] Last Admin: 03/24/18 10:59 Dose: 25 mg Tamsulosin HCl (Flomax) 0.4 mg PO DAILY [facility] Last Admin: 03/24/18 11:00 Dose: 0.4 mg Results - Vital Signs Recent Vital Signs: Last Vital Signs Temp 98.5 F 03/24/18 07:00 Pulse 65 03/24/18 07:00 Resp 20 03/24/18 07:00 BP 132/65 03/24/18 11:00 Pulse Ox 96 03/24/18 07:00 - Labs Result Diagrams: 03/23/18 14:32 03/23/18 14:32 Labs: Laboratory Results - last 24 hr 03/23/18 03/23/18 03/23/18 14:32 14:32 14:32 ESR 19 H Troponin I < 0.0120 Cardiac CRP 98.5 H NT-Pro-B Natriuret Pep 417 03/23/18 18:24 ESR Troponin I < 0.0120 Cardiac CRP NT-Pro-B Natriuret Pep 359
--- NOTE | 2018-03-24 17:09 | CP.PCM.HP ---
Past Patient History - Infectious Disease Hx of Infectious Diseases: None - Tetanus Immunizations Tetanus Immunization: Unknown - Past Medical History & Family History Past Medical History?: Yes - Past Social History Smoking Status: Never Smoked - CARDIAC Hx Atrial Fibrillation: Yes Hx Cardia Arrhythmia: Yes (atrial fib) Hx Congestive Heart Failure: Yes Hx Hypercholesterolemia: Yes Hx Hypertension: Yes - PULMONARY Hx Chronic Obstructive Pulmonary Disease (COPD): Yes Hx Pneumonia: Yes (10 YEARS AGO) - NEUROLOGICAL Hx Neurological Disorder: Yes (PERIPHERAL NEUROPATHY) Other/Comment: hand tremors DUE TO NERVES - HEENT Hx HEENT Problems: No - RENAL Hx Chronic Kidney Disease: No - ENDOCRINE/METABOLIC Hx Diabetes Mellitus Type 2: Yes - HEMATOLOGICAL/ONCOLOGICAL Hx Blood Disorders: No - INTEGUMENTARY Other/Comment: Mass, scalp - MUSCULOSKELETAL/RHEUMATOLOGICAL Hx Falls: Yes - GENITOURINARY/GYNECOLOGICAL Hx Genitourinary Disorders: Yes (+LEGIONELLA IN THE URINE,FREQUENCY,) Hx Prostate Problems: Yes (BPH) - PSYCHIATRIC Hx Substance Use: No - SURGICAL HISTORY Hx Surgeries: Yes Hx Arthroscopy: Yes (BILAT KNEES) Hx Musculoskeletal Surgery: Yes (LUMBAR LAMINECTOMY) Hx Open Reduction Internal Fixation: Yes (RIGHT ELBOW) Hx Orthopedic Surgery: (RT knee 12/18/17) Other/Comment: INSERTION PAIN CONTROL STIMULATOR LUMBAR - ANESTHESIA Hx Anesthesia: Yes Hx Anesthesia Reactions: No Hx Malignant Hyperthermia: No Has any member of the family had a problem w/ anesthesia?: No Meds Allergies/Adverse Reactions: Allergies Allergy/AdvReac Type Severity Reaction Status Date / Time No Known Allergies Allergy Verified 01/20/18 08:12 Physical Exam - Constitutional Appears: Well - Head Exam Head Exam: ATRAUMATIC, NORMAL INSPECTION, NORMOCEPHALIC - Eye Exam Eye Exam: EOMI, Normal appearance, PERRL Pupil Exam: NORMAL ACCOMODATION, PERRL - ENT Exam ENT Exam: Mucous Membranes Moist, Normal Exam - Neck Exam Neck exam: Positive for: Normal Inspection - Respiratory Exam Respiratory Exam: Decreased Breath Sounds - Cardiovascular Exam Cardiovascular Exam: REGULAR RHYTHM, +S1, +S2 - GI/Abdominal Exam GI & Abdominal Exam: Diminished Bowel Sounds, Soft - Rectal Exam Rectal Exam: Deferred Results - Vital Signs Recent Vital Signs: Last Vital Signs Temp 98.0 F 03/24/18 16:00 Pulse 60 03/24/18 16:00 Resp 20 05/22/18 16:00 BP 155/74 H 05/22/18 16:00 Pulse Ox 94 L 03/24/18 16:00 - Labs Result Diagrams: 03/23/18 14:32 03/23/18 14:32 Labs: Laboratory Results - last 24 hr 03/23/18 03/23/18 14:32 18:24 Troponin I < 0.0120 Cardiac CRP 98.5 H NT-Pro-B Natriuret Pep 359
[2018-03-24] MEDS: Digoxin 125 mcg (0.125 mg) Tab PO SCH (17:37)
[2018-03-24] MEDS: Azithromycin 500 MG in Sodium Chloride 0.9% 250 ML IVPB SCH (18:05)
[2018-03-24] MEDS ORDERED: Albuterol-Ipratrop 3 mg / 0.5 (3 ml) UD INH SCH (20:46)
[2018-03-25] MEDS: Albuterol-Ipratrop 3 mg / 0.5 (3 ml) UD INH SCH ×6 (03:15→23:42)
[2018-03-25] MEDS: Piperacillin/Tazobact 3.375 GM in Sodium Chloride 100 ML IVPB SCH (04:00)
[2018-03-25] MEDS: oxyCODONE 5 mg Immediate Release Tab PO SCH ×4 (04:15→12:02)
[2018-03-25] MEDS: MethylPREDNISolone 40 mg Vial IVP SCH ×3 (05:40→21:37)
--- NOTE | 2018-03-25 08:15 | CP.PCM.CON ---
History of Present Illness - History of Present Illness History of Present Illness: Orthopedic consultation Dr. Berry 68M known to me s/p right primary TKR by Dr. John Mccormickack Dec 2017. Patient has had multiple admissions to since that time. He has multiple reported recent falls. He says at this time, his knee is doing "pretty good" and he has been ambulating without any brace. Last admission, patient found to have ? lat fem condyle fx and was treated in knee immobilizer and NWB per Dr. Lei. Patient is poor historian. He can not tell who removed brace, nor if he saw Dr. Lei in office since last admission or Dr. Lopez since surgery, as specifically instructed to patient and upon d/c to rehab last visit. He has been walking on knee without brace or WB restrictions. He denies knee giving way. Denies numbness/tingling. Denies redness to knee. Review of Systems - Review of Systems All systems: reviewed and no additional remarkable complaints except - Musculoskeletal Musculoskeletal: As Per HPI - Integumentary Additional comments: wound healed Past Patient History - Infectious Disease Hx of Infectious Diseases: None - Tetanus Immunizations Tetanus Immunization: Unknown - Past Medical History & Family History Past Medical History?: Yes Past Family History: Reviewed and not pertinent - Past Social History Smoking Status: Never Smoked - CARDIAC Hx Atrial Fibrillation: Yes Hx Cardia Arrhythmia: Yes (atrial fib) Hx Congestive Heart Failure: Yes Hx Hypercholesterolemia: Yes Hx Hypertension: Yes - PULMONARY Hx Chronic Obstructive Pulmonary Disease (COPD): Yes Hx Pneumonia: Yes (10 YEARS AGO) - NEUROLOGICAL Hx Neurological Disorder: Yes (PERIPHERAL NEUROPATHY) Other/Comment: hand tremors DUE TO NERVES - HEENT Hx HEENT Problems: No - RENAL Hx Chronic Kidney Disease: No - ENDOCRINE/METABOLIC Hx Diabetes Mellitus Type 2: Yes - HEMATOLOGICAL/ONCOLOGICAL Hx Blood Disorders: No - INTEGUMENTARY Other/Comment: Mass, scalp - MUSCULOSKELETAL/RHEUMATOLOGICAL Hx Arthritis: Yes Hx Fractures: Yes ( RIBS RIGHT ELBOW) - GENITOURINARY/GYNECOLOGICAL Hx Genitourinary Disorders: Yes (+LEGIONELLA IN THE URINE,FREQUENCY,) Hx Prostate Problems: Yes (BPH) - PSYCHIATRIC Hx Depression: Yes Hx Substance Use: Yes (Quit) - SURGICAL HISTORY Hx Surgeries: Yes Hx Arthroscopy: Yes (BILAT KNEES) Hx Musculoskeletal Surgery: Yes (LUMBAR LAMINECTOMY) Hx Open Reduction Internal Fixation: Yes (RIGHT ELBOW) Hx Orthopedic Surgery: (RT knee 12/18/17) Other/Comment: INSERTION PAIN CONTROL STIMULATOR LUMBAR - ANESTHESIA Hx Anesthesia: Yes Hx Anesthesia Reactions: No Hx Malignant Hyperthermia: No Has any member of the family had a problem w/ anesthesia?: No Meds Allergies/Adverse Reactions: Allergies Allergy/AdvReac Type Severity Reaction Status Date / Time No Known Allergies Allergy Verified 01/20/18 08:12 - Medications Medications: Current Medications Albuterol/Ipratropium (Duoneb 3 Mg/0.5 Mg (3 Ml) Ud) 3 ml INH RQ4 [facility] Last Admin: 03/25/18 08:06 Dose: 3 ml Bupropion HCl (Wellbutrin Xl) 300 mg PO DAILY [facility] Last Admin: 03/24/18 11:00 Dose: 300 mg Carvedilol (Coreg) 25 mg PO BID [facility] Last Admin: 03/24/18 17:35 Dose: 25 mg Diazepam (Valium) 10 mg PO DAILY [facility] Last Admin: 03/24/18 21:08 Dose: Not Given Digoxin (Digoxin) 0.125 mg PO DAILY@1800 [facility] Last Admin: 03/24/18 17:37 Dose: 0.125 mg Docusate Sodium (Colace) 100 mg PO TID [facility] Last Admin: 03/24/18 19:13 Dose: 100 mg Duloxetine HCl (Cymbalta) 60 mg PO BID [facility] Last Admin: 03/24/18 17:37 Dose: 60 mg Enoxaparin Sodium (Lovenox) 40 mg SC DAILY [facility] Last Admin: 03/24/18 11:00 Dose: 40 mg Ergocalciferol (Drisdol 50,000 Intl Units Cap) 1 cap PO Q7D [facility] Last Admin: 03/24/18 11:13 Dose: 1 cap Famotidine (Pepcid) 20 mg PO DAILY [facility] Last Admin: 03/24/18 10:59 Dose: 20 mg Finasteride (Proscar) 5 mg PO DAILY [facility] Last Admin: 03/24/18 11:00 Dose: 5 mg Furosemide (Lasix) 40 mg PO DAILY [facility] Last Admin: 03/24/18 10:59 Dose: 40 mg Piperacillin Sod/Tazobactam (Sod 3.375 gm/ Sodium Chloride) 100 mls @ 200 mls/ hr IVPB Q8H [facility] PRN Reason: Protocol Last Admin: 03/25/18 04:00 Dose: 200 mls/hr Azithromycin 500 mg/ Sodium (Chloride) 250 mls @ 250 mls/hr IVPB DAILY [facility] PRN Reason: Protocol Last Admin: 03/24/18 18:05 Dose: 250 mls/hr Metformin HCl (Glucophage) 850 mg PO BID [facility] Last Admin: 03/24/18 17:35 Dose: 850 mg Methylprednisolone (Solu-Medrol) 40 mg IVP Q8 [facility] Last Admin: 03/25/18 05:40 Dose: 40 mg Morphine Sulfate (Morphine Extended Release Tab) 60 mg PO Q12H [facility] Last Admin: 03/24/18 12:08 Dose: 60 mg Oxycodone HCl (Oxycodone Immediate Release Tab) 10 mg PO BID PRN PRN Reason: Pain, moderate (4-7) Oxycodone HCl (Oxycodone Immediate Release Tab) 15 mg PO Q4 [facility] Last Admin: 03/25/18 04:15 Dose: 15 mg Pantoprazole Sodium (Protonix Ec Tab) 20 mg PO DAILY [facility] Last Admin: 03/24/18 11:00 Dose: 20 mg Pregabalin (Lyrica) 225 mg PO QID [facility] Last Admin: 03/24/18 21:08 Dose: 225 mg Rivaroxaban (Xarelto) 20 mg PO DAILY [facility] Last Admin: 03/24/18 11:00 Dose: 20 mg Rosuvastatin Calcium (Crestor) 10 mg PO HS [facility] Last Admin: 03/24/18 21:09 Dose: 10 mg Spironolactone (Aldactone) 25 mg PO DAILY [facility] Last Admin: 03/24/18 10:59 Dose: 25 mg Tamsulosin HCl (Flomax) 0.4 mg PO DAILY [facility] Last Admin: 03/24/18 11:00 Dose: 0.4 mg Physical Exam - Constitutional Appears: Well, No Acute Distress - Head Exam Head Exam: ATRAUMATIC - Neck Exam Neck exam: Positive for: Full Rom - Respiratory Exam Respiratory Exam: NORMAL BREATHING PATTERN - Extremities Exam Additional comments: calves soft NT neg homans right knee non tender no erythema normal expected swelling ROM 4-95 degrees actively without pain neg varus/valgus/ant drawer non tender to lateral femoral condyle - Expanded Lower Extremities Exam Right Ankle exam: FULL ROM - Neurological Exam Neurological exam: Alert - Psychiatric Exam Psychiatric exam: Normal Affect, Normal Mood - Skin Skin Exam: Dry, Intact (incision well healed, no erythema, mild swelling which is normal for post op TKR), Normal Color, Warm Results - Vital Signs Recent Vital Signs: Last Vital Signs Temp 97.7 F 03/25/18 07:33 Pulse 59 L 03/25/18 07:33 Resp 20 03/25/18 07:33 BP 142/72 03/25/18 07:33 Pulse Ox 94 L 03/25/18 07:33 - Labs Result Diagrams: 03/23/18 14:32 03/23/18 14:32 Labs: Laboratory Results - last 24 hr 03/23/18 03/24/18 03/25/18 14:32 22:45 02:18 POC Glucose (mg/dL) 313 H 293 H Cardiac CRP 98.5 H 03/25/18 07:20 POC Glucose (mg/dL) 263 H Cardiac CRP - Impressions Impression: Patient Name / ID : MELINA BOYKIN / [id number] Exam Date : 03/24/2018 18:55:20 ( Approved ) Study Comment : Sex / Age : M / 68Y Creator : Tamela Andrews MD Dictator : Tamela Andrews MD 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 HISTORY: s/p TKR COMPARISON: None. FINDINGS: BONES: There is no acute displaced fracture or bone destruction. Bone alignment is normal. JOINTS: Status post total cemented knee arthroplasty. No evidence of hardware complications. JOINT EFFUSION: There is a large suprapatellar joint effusion. OTHER FINDINGS: There is severe prepatellar soft tissue swelling. IMPRESSION: Status post total knee arthroplasty, no evidence of hardware complications. Large suprapatellar joint effusion and prepatellar soft tissue swelling. Assessment & Plan (1) Status post total knee replacement Assessment and Plan: 3 months s/p right total knee replacement xrays reviewed, awaiting official reading, no obvious radiographic evidence of lucency/loosening. Area to lateral femoral condyle visible since January and appears healing and stable. Non tender, no laxity no clinical suspicion of infection of right knee PT/OT patient needs to follow up with Dr. Lopez who performed surgery. Patient can not recall if he has seen his surgeon. Office of Dr. Lopez called, patient was seen 03/10 and has another follow up appointment 04/07 at 1:15pm that patient will need to keep no orthopedic issues continue PT/OT while in house, WBAT d/w Dr. Berry, agrees with above Status: Chronic
--- NOTE | 2018-03-25 08:54 | RAD ---
PROCEDURE: Right Knee Radiographs. HISTORY: s/p TKR COMPARISON: None. FINDINGS: BONES: There is no acute displaced fracture or bone destruction. Bone alignment is normal. JOINTS: Status post total cemented knee arthroplasty. No evidence of hardware complications. JOINT EFFUSION: There is a large suprapatellar joint effusion. OTHER FINDINGS: There is severe prepatellar soft tissue swelling. IMPRESSION: Status post total knee arthroplasty, no evidence of hardware complications. Large suprapatellar joint effusion and prepatellar soft tissue swelling.
[2018-03-25] MEDS: Azithromycin 500 MG in Sodium Chloride 0.9% 250 ML IVPB SCH (09:54)
[2018-03-25] MEDS: Enoxaparin 40 mg Syringe SC SCH (09:54)
[2018-03-25] MEDS: buPROPion 150 mg/24 Hours XL Tab PO SCH (09:56)
[2018-03-25] MEDS: Pantoprazole 20 mg EC Tab PO SCH (09:57)
[2018-03-25] MEDS: (Novolin R) Insulin Human Regular 100 units/ml vial SC SCH ×3 (11:47→21:48)
[2018-03-25] MEDS: Morphine 30 mg SR Tab PO SCH ×2 (11:47→23:50)
--- NOTE | 2018-03-25 16:11 | CP.PCM.PN ---
Subjective - Date & Time of Evaluation Date of Evaluation: 03/25/18 Time of Evaluation: 08:40 - Subjective Subjective: clinically same Objective - Vital Signs/Intake and Output Vital Signs (last 24 hours): Temp Pulse Resp BP Pulse Ox 97.7 F 60 20 142/72 95 03/25/18 07:33 03/25/18 14:22 03/25/18 07:33 03/25/18 09:59 03/25/18 14:22 Intake and Output: 03/25/18 03/25/18 06:59 18:59 Intake Total 515 660 Output Total 800 Balance 515 -140 - Medications Medications: Current Medications Albuterol/Ipratropium (Duoneb 3 Mg/0.5 Mg (3 Ml) Ud) 3 ml INH RQ4 [facility] Last Admin: 03/25/18 14:07 Dose: 3 ml Bupropion HCl (Wellbutrin Xl) 300 mg PO DAILY [facility] Last Admin: 03/25/18 09:56 Dose: 300 mg Carvedilol (Coreg) 25 mg PO BID [facility] Last Admin: 03/25/18 09:59 Dose: 25 mg Diazepam (Valium) 10 mg PO DAILY [facility] Last Admin: 03/25/18 09:56 Dose: 10 mg Digoxin (Digoxin) 0.125 mg PO DAILY@1800 [facility] Last Admin: 03/24/18 17:37 Dose: 0.125 mg Docusate Sodium (Colace) 100 mg PO TID [facility] Last Admin: 03/25/18 13:46 Dose: 100 mg Duloxetine HCl (Cymbalta) 60 mg PO BID [facility] Last Admin: 03/25/18 09:56 Dose: 60 mg Ergocalciferol (Drisdol 50,000 Intl Units Cap) 1 cap PO Q7D [facility] Last Admin: 03/24/18 11:13 Dose: 1 cap Famotidine (Pepcid) 20 mg PO DAILY [facility] Last Admin: 03/25/18 09:55 Dose: 20 mg Finasteride (Proscar) 5 mg PO DAILY [facility] Last Admin: 03/25/18 09:56 Dose: 5 mg Furosemide (Lasix) 40 mg PO DAILY [facility] Last Admin: 03/25/18 09:55 Dose: 40 mg Azithromycin 500 mg/ Sodium (Chloride) 250 mls @ 250 mls/hr IVPB DAILY [facility] PRN Reason: Protocol Last Admin: 03/25/18 09:54 Dose: 250 mls/hr Ceftriaxone Sodium 1 gm/ (Sodium Chloride) 100 mls @ 200 mls/hr IVPB Q24H [facility] PRN Reason: Protocol Last Admin: 03/25/18 12:13 Dose: 200 mls/hr Insulin Human Regular (Novolin R) 0 unit SC ACHS [facility] PRN Reason: Protocol Last Admin: 03/25/18 11:47 Dose: 6 unit Metformin HCl (Glucophage) 850 mg PO BID [facility] Last Admin: 03/25/18 09:56 Dose: 850 mg Methylprednisolone (Solu-Medrol) 40 mg IVP Q8 [facility] Last Admin: 03/25/18 13:48 Dose: 40 mg Morphine Sulfate (Morphine Extended Release Tab) 60 mg PO Q12H [facility] Last Admin: 03/25/18 11:47 Dose: 60 mg Oxycodone HCl (Oxycodone Immediate Release Tab) 10 mg PO BID PRN PRN Reason: Pain, moderate (4-7) Oxycodone HCl (Oxycodone Immediate Release Tab) 15 mg PO Q4 [facility] Last Admin: 03/25/18 12:02 Dose: Not Given Pantoprazole Sodium (Protonix Ec Tab) 20 mg PO DAILY [facility] Last Admin: 03/25/18 09:57 Dose: 20 mg Pregabalin (Lyrica) 225 mg PO QID [facility] Last Admin: 03/25/18 13:46 Dose: 225 mg Rivaroxaban (Xarelto) 20 mg PO DAILY [facility] Last Admin: 03/25/18 09:57 Dose: 20 mg Rosuvastatin Calcium (Crestor) 10 mg PO HS [facility] Last Admin: 03/24/18 21:09 Dose: 10 mg Spironolactone (Aldactone) 25 mg PO DAILY [facility] Last Admin: 03/25/18 10:33 Dose: 25 mg Tamsulosin HCl (Flomax) 0.4 mg PO DAILY [facility] Last Admin: 03/25/18 09:56 Dose: 0.4 mg - Labs Labs: 03/23/18 14:32 03/23/18 14:32 - Constitutional Appears: Well - Head Exam Head Exam: ATRAUMATIC, NORMAL INSPECTION, NORMOCEPHALIC - Eye Exam Eye Exam: EOMI, Normal appearance, PERRL Pupil Exam: NORMAL ACCOMODATION, PERRL - ENT Exam ENT Exam: Mucous Membranes Moist, Normal Exam - Neck Exam Neck Exam: Full ROM, Normal Inspection. absent: Lymphadenopathy - Respiratory Exam Respiratory Exam: Decreased Breath Sounds - Cardiovascular Exam Cardiovascular Exam: REGULAR RHYTHM, +S1, +S2 - GI/Abdominal Exam GI & Abdominal Exam: Soft, Diminished Bowel Sounds - Rectal Exam Rectal Exam: Deferred
[2018-03-25] MEDS: oxyCODONE 10 mg Immediate Release Tab PO PRN ×2 (16:17→20:14)
--- NOTE | 2018-03-25 17:02 | CP.PCM.PN ---
Subjective - Date & Time of Evaluation Date of Evaluation: 03/25/18 Time of Evaluation: 11:50 - Subjective Subjective: Patient seen and examined at bedside today Patient resting comfortably in bed in no distress. Patient denies chest pain or shortness of breath. Patient states he feels well. 1. Pneumonia - Continue Piperacillin/Tazobactam 2. COPD - Continue Solumedrol - Continue Duoneb 3. Diabetes Mellitus - Management by Primary Team 4. HTN - Management by Primary Team 5. CHF - Management by Primary Team Objective - Vital Signs/Intake and Output Vital Signs (last 24 hours): Temp Pulse Resp BP Pulse Ox 97.7 F 60 20 142/72 95 03/25/18 07:33 03/25/18 14:22 03/25/18 07:33 03/25/18 09:59 03/25/18 14:22 Intake and Output: 03/25/18 03/25/18 06:59 18:59 Intake Total 515 660 Output Total 800 Balance 515 -140 - Medications Medications: Current Medications Albuterol/Ipratropium (Duoneb 3 Mg/0.5 Mg (3 Ml) Ud) 3 ml INH RQ4 [facility] Last Admin: 03/25/18 14:07 Dose: 3 ml Bupropion HCl (Wellbutrin Xl) 300 mg PO DAILY [facility] Last Admin: 03/25/18 09:56 Dose: 300 mg Carvedilol (Coreg) 25 mg PO BID [facility] Last Admin: 03/25/18 09:59 Dose: 25 mg Diazepam (Valium) 10 mg PO DAILY [facility] Last Admin: 03/25/18 09:56 Dose: 10 mg Digoxin (Digoxin) 0.125 mg PO DAILY@1800 [facility] Last Admin: 03/24/18 17:37 Dose: 0.125 mg Docusate Sodium (Colace) 100 mg PO TID [facility] Last Admin: 03/25/18 13:46 Dose: 100 mg Duloxetine HCl (Cymbalta) 60 mg PO BID [facility] Last Admin: 03/25/18 09:56 Dose: 60 mg Ergocalciferol (Drisdol 50,000 Intl Units Cap) 1 cap PO Q7D [facility] Last Admin: 03/24/18 11:13 Dose: 1 cap Famotidine (Pepcid) 20 mg PO DAILY [facility] Last Admin: 03/25/18 09:55 Dose: 20 mg Finasteride (Proscar) 5 mg PO DAILY [facility] Last Admin: 03/25/18 09:56 Dose: 5 mg Furosemide (Lasix) 40 mg PO DAILY [facility] Last Admin: 03/25/18 09:55 Dose: 40 mg Azithromycin 500 mg/ Sodium (Chloride) 250 mls @ 250 mls/hr IVPB DAILY [facility] PRN Reason: Protocol Last Admin: 03/25/18 09:54 Dose: 250 mls/hr Ceftriaxone Sodium 1 gm/ (Sodium Chloride) 100 mls @ 200 mls/hr IVPB Q24H [facility] PRN Reason: Protocol Last Admin: 03/25/18 12:13 Dose: 200 mls/hr Insulin Human Regular (Novolin R) 0 unit SC ACHS [facility] PRN Reason: Protocol Last Admin: 03/25/18 16:21 Dose: 8 unit Metformin HCl (Glucophage) 850 mg PO BID [facility] Last Admin: 03/25/18 09:56 Dose: 850 mg Methylprednisolone (Solu-Medrol) 40 mg IVP Q8 [facility] Last Admin: 03/25/18 13:48 Dose: 40 mg Morphine Sulfate (Morphine Extended Release Tab) 60 mg PO Q12H [facility] Last Admin: 03/25/18 11:47 Dose: 60 mg Oxycodone HCl (Oxycodone Immediate Release Tab) 10 mg PO BID PRN PRN Reason: Pain, moderate (4-7) Last Admin: 03/25/18 16:17 Dose: 10 mg Oxycodone HCl (Oxycodone Immediate Release Tab) 15 mg PO Q4 [facility] Last Admin: 03/25/18 12:02 Dose: Not Given Pantoprazole Sodium (Protonix Ec Tab) 20 mg PO DAILY [facility] Last Admin: 03/25/18 09:57 Dose: 20 mg Pregabalin (Lyrica) 225 mg PO QID [facility] Last Admin: 03/25/18 13:46 Dose: 225 mg Rivaroxaban (Xarelto) 20 mg PO DAILY [facility] Last Admin: 03/25/18 09:57 Dose: 20 mg Rosuvastatin Calcium (Crestor) 10 mg PO HS [facility] Last Admin: 03/24/18 21:09 Dose: 10 mg Spironolactone (Aldactone) 25 mg PO DAILY [facility] Last Admin: 03/25/18 10:33 Dose: 25 mg Tamsulosin HCl (Flomax) 0.4 mg PO DAILY [facility] Last Admin: 03/25/18 09:56 Dose: 0.4 mg - Labs Labs: 03/23/18 14:32 03/23/18 14:32
[2018-03-25] MEDS: Digoxin 125 mcg (0.125 mg) Tab PO SCH (18:02)
[2018-03-26] MEDS: Albuterol-Ipratrop 3 mg / 0.5 (3 ml) UD INH SCH ×6 (03:24→23:52)
[2018-03-26] MEDS: MethylPREDNISolone 40 mg Vial IVP SCH ×3 (05:56→21:50)
[2018-03-26 07:46] LABS: BASO % 0.1 % (0.0-2.0); HEMOGLOBIN 12.9 g/dL (12.0-18.0); LYMPH # 0.9 K/uL (1.0-4.3); LYMPH % 11.7 % (20.0-40.0); MEAN CELL VOLUME 81.3 fL (80.0-94.0); MEAN CORPUSCULAR HEMOGLOBIN 27.5 pg (27.0-31.0); MEAN CORPUSCULAR HGB CONC 33.9 g/dL (33.0-37.0); MONO # 0.5 K/uL (0.0-0.8); MONO % 6.5 % (0.0-10.0); NEUT # 6.1 K/uL (1.8-7.0); NEUT % 81.7 % (50.0-75.0); RBC 4.68 Mil/uL (4.40-5.90); RED CELL DISTRIBUTION WIDTH 15.1 % (11.5-14.5); WHITE BLOOD COUNT 7.5 K/uL (4.8-10.8)
[2018-03-26 07:48] LABS: BLOOD UREA NITROGEN 33 mg/dL (9-20); CALCIUM 8.6 mg/dl (8.6-10.4); GFR AFRICAN-AMERICAN > 60; GFR NON-AFRICAN AMERICAN > 60
[2018-03-26] MEDS: (Novolin R) Insulin Human Regular 100 units/ml vial SC SCH ×4 (08:00→21:48)
--- NOTE | 2018-03-26 09:03 | CP.PCM.PN ---
Subjective - Date & Time of Evaluation Date of Evaluation: 03/26/18 Time of Evaluation: 08:53 - Subjective Subjective: Patient less confused today. He says he has appointment in April with Dr. Lopez. He says his knee is feeling better. Objective - Vital Signs/Intake and Output Vital Signs (last 24 hours): Temp Pulse Resp BP Pulse Ox 98.5 F 60 20 157/69 H 96 03/26/18 08:06 03/26/18 08:06 03/26/18 08:06 03/26/18 08:06 03/26/18 08:06 Intake and Output: 03/26/18 03/26/18 06:59 18:59 Intake Total 200 Balance 200 - Medications Medications: Current Medications Albuterol/Ipratropium (Duoneb 3 Mg/0.5 Mg (3 Ml) Ud) 3 ml INH RQ4 [facility] Last Admin: 03/26/18 07:16 Dose: 3 ml Bupropion HCl (Wellbutrin Xl) 300 mg PO DAILY [facility] Last Admin: 03/25/18 09:56 Dose: 300 mg Carvedilol (Coreg) 25 mg PO BID [facility] Last Admin: 03/25/18 18:01 Dose: 25 mg Diazepam (Valium) 10 mg PO DAILY [facility] Last Admin: 03/25/18 09:56 Dose: 10 mg Digoxin (Digoxin) 0.125 mg PO DAILY@1800 [facility] Last Admin: 03/25/18 18:02 Dose: 0.125 mg Docusate Sodium (Colace) 100 mg PO TID [facility] Last Admin: 03/25/18 18:00 Dose: 100 mg Duloxetine HCl (Cymbalta) 60 mg PO BID [facility] Last Admin: 03/25/18 17:59 Dose: 60 mg Ergocalciferol (Drisdol 50,000 Intl Units Cap) 1 cap PO Q7D [facility] Last Admin: 03/24/18 11:13 Dose: 1 cap Famotidine (Pepcid) 20 mg PO DAILY [facility] Last Admin: 03/25/18 09:55 Dose: 20 mg Finasteride (Proscar) 5 mg PO DAILY [facility] Last Admin: 03/25/18 09:56 Dose: 5 mg Furosemide (Lasix) 40 mg PO DAILY [facility] Last Admin: 03/25/18 09:55 Dose: 40 mg Azithromycin 500 mg/ Sodium (Chloride) 250 mls @ 250 mls/hr IVPB DAILY [facility] PRN Reason: Protocol Last Admin: 03/25/18 09:54 Dose: 250 mls/hr Ceftriaxone Sodium 1 gm/ (Sodium Chloride) 100 mls @ 200 mls/hr IVPB Q24H [facility] PRN Reason: Protocol Last Admin: 03/25/18 12:13 Dose: 200 mls/hr Insulin Human Regular (Novolin R) 0 unit SC ACHS [facility] PRN Reason: Protocol Last Admin: 03/26/18 08:00 Dose: 4 unit Metformin HCl (Glucophage) 850 mg PO BID [facility] Last Admin: 03/25/18 18:02 Dose: 850 mg Methylprednisolone (Solu-Medrol) 40 mg IVP Q8 [facility] Last Admin: 03/26/18 05:56 Dose: 40 mg Morphine Sulfate (Morphine Extended Release Tab) 60 mg PO Q12H [facility] Last Admin: 03/25/18 23:50 Dose: 60 mg Oxycodone HCl (Oxycodone Immediate Release Tab) 10 mg PO BID PRN PRN Reason: Pain, moderate (4-7) Last Admin: 03/25/18 20:14 Dose: 10 mg Pantoprazole Sodium (Protonix Ec Tab) 20 mg PO DAILY [facility] Last Admin: 03/25/18 09:57 Dose: 20 mg Pregabalin (Lyrica) 225 mg PO QID [facility] Last Admin: 03/25/18 21:37 Dose: 225 mg Rivaroxaban (Xarelto) 20 mg PO DAILY [facility] Last Admin: 03/25/18 09:57 Dose: 20 mg Rosuvastatin Calcium (Crestor) 10 mg PO HS [facility] Last Admin: 03/25/18 21:36 Dose: 10 mg Spironolactone (Aldactone) 25 mg PO DAILY [facility] Last Admin: 03/25/18 10:33 Dose: 25 mg Tamsulosin HCl (Flomax) 0.4 mg PO DAILY [facility] Last Admin: 03/25/18 09:56 Dose: 0.4 mg - Labs Labs: 03/26/18 07:20 03/26/18 07:20 - Constitutional Appears: Well, No Acute Distress - Head Exam Head Exam: ATRAUMATIC - Neck Exam Neck Exam: Full ROM - Respiratory Exam Respiratory Exam: NORMAL BREATHING PATTERN - Cardiovascular Exam Additional comments: +DP/PT pulses - Extremities Exam Additional comments: Right knee: sitting with knee flexed to 100 degrees, comfortable. No erythema, non tender, knee not warm, incision healed, normal post op swelling calves osft NT neg homans +ROM ankle/toes, sensation intact - Neurological Exam Neurological Exam: Alert, Awake Neuro motor strength exam: Right Lower Extremity: 5 - Psychiatric Exam Psychiatric exam: Normal Affect, Normal Mood - Skin Skin Exam: Dry, Intact, Normal Color, Warm Assessment and Plan (1) Status post total knee replacement Assessment & Plan: PT/OT OOB VTE proph no orthopedic issues 3 months s/p right total knee replacement xrays reviewed, no obvious radiographic evidence of lucency/loosening. Area to lateral femoral condyle visible since January and appears healing and stable. Non tender, no laxity no clinical suspicion of infection of right knee Office of Dr. Lopez called, patient was seen 03/10 and has another follow up appointment 04/07 at 1:15pm that patient will need to keep no orthopedic issues continue PT/OT while in house, WBAT d/w Dr. Berry, agrees with above Status: Chronic
[2018-03-26] MEDS: Pantoprazole 20 mg EC Tab PO SCH (10:24)
[2018-03-26] MEDS: buPROPion 150 mg/24 Hours XL Tab PO SCH (10:25)
[2018-03-26] MEDS: Azithromycin 500 MG in Sodium Chloride 0.9% 250 ML IVPB SCH (10:46)
[2018-03-26] MEDS: Morphine 30 mg SR Tab PO SCH ×2 (12:06→23:55)
--- NOTE | 2018-03-26 13:54 | CP.PCM.PN ---
Subjective - Date & Time of Evaluation Date of Evaluation: 03/26/18 Time of Evaluation: 13:50 - Subjective Subjective: DISCUSSED D/C PLANS WITH DR. PURDY. PT HAS ONE BOTTLE FROM BLOOD CX POSITIVE. DR. MONTES CALLED ON CONSULT FOR ID (THIS IS HIS OFFICE PT) AND IS REQUESTING CARDIOLOGY CONSULT WITH DR. BROWN (WHO IS ALSO PT'S CLINICAL EXERCISE PHYSIOLOGIST). I NOTIFIED BOTH DR. MONTES AND DR. BROWN OF CONSULT. PENDING REPEAT BLOOD CULTURES, ECHO , AND CONSULTS TO SEE PT. NO FURTHER ORDERS. Objective - Vital Signs/Intake and Output Vital Signs (last 24 hours): Temp Pulse Resp BP Pulse Ox 98.5 F 62 17 133/74 95 03/26/18 08:06 03/26/18 12:10 03/26/18 12:10 03/26/18 12:10 03/26/18 12:10 Intake and Output: 03/26/18 03/26/18 06:59 18:59 Intake Total 200 Balance 200 - Medications Medications: Current Medications Albuterol/Ipratropium (Duoneb 3 Mg/0.5 Mg (3 Ml) Ud) 3 ml INH RQ4 [facility] Last Admin: 03/26/18 07:16 Dose: 3 ml Bupropion HCl (Wellbutrin Xl) 300 mg PO DAILY [facility] Last Admin: 03/26/18 10:25 Dose: 300 mg Carvedilol (Coreg) 25 mg PO BID [facility] Last Admin: 03/26/18 10:21 Dose: 25 mg Diazepam (Valium) 10 mg PO DAILY [facility] Last Admin: 03/26/18 10:21 Dose: 10 mg Digoxin (Digoxin) 0.125 mg PO DAILY@1800 [facility] Last Admin: 03/25/18 18:02 Dose: 0.125 mg Docusate Sodium (Colace) 100 mg PO TID [facility] Last Admin: 03/26/18 13:21 Dose: 100 mg Duloxetine HCl (Cymbalta) 60 mg PO BID [facility] Last Admin: 03/26/18 10:22 Dose: 60 mg Ergocalciferol (Drisdol 50,000 Intl Units Cap) 1 cap PO Q7D [facility] Last Admin: 03/24/18 11:13 Dose: 1 cap Famotidine (Pepcid) 20 mg PO DAILY [facility] Last Admin: 03/26/18 10:21 Dose: 20 mg Finasteride (Proscar) 5 mg PO DAILY [facility] Last Admin: 03/26/18 10:24 Dose: 5 mg Furosemide (Lasix) 40 mg PO DAILY [facility] Last Admin: 03/26/18 10:22 Dose: 40 mg Azithromycin 500 mg/ Sodium (Chloride) 250 mls @ 250 mls/hr IVPB DAILY [facility] PRN Reason: Protocol Last Admin: 03/26/18 10:46 Dose: 250 mls/hr Ceftriaxone Sodium 1 gm/ (Sodium Chloride) 100 mls @ 200 mls/hr IVPB Q24H [facility] PRN Reason: Protocol Last Admin: 03/26/18 12:07 Dose: 200 mls/hr Insulin Human Regular (Novolin R) 0 unit SC ACHS [facility] PRN Reason: Protocol Last Admin: 03/26/18 12:09 Dose: 8 unit Metformin HCl (Glucophage) 850 mg PO BID [facility] Last Admin: 03/26/18 10:24 Dose: 850 mg Methylprednisolone (Solu-Medrol) 40 mg IVP Q8 [facility] Last Admin: 03/26/18 13:21 Dose: 40 mg Morphine Sulfate (Morphine Extended Release Tab) 60 mg PO Q12H [facility] Last Admin: 03/26/18 12:06 Dose: 60 mg Oxycodone HCl (Oxycodone Immediate Release Tab) 10 mg PO BID PRN PRN Reason: Pain, moderate (4-7) Last Admin: 03/25/18 20:14 Dose: 10 mg Pantoprazole Sodium (Protonix Ec Tab) 20 mg PO DAILY [facility] Last Admin: 03/26/18 10:24 Dose: 20 mg Pregabalin (Lyrica) 225 mg PO QID [facility] Last Admin: 03/26/18 13:21 Dose: 225 mg Rivaroxaban (Xarelto) 20 mg PO DAILY [facility] Last Admin: 03/26/18 10:24 Dose: 20 mg Rosuvastatin Calcium (Crestor) 10 mg PO HS [facility] Last Admin: 03/25/18 21:36 Dose: 10 mg Spironolactone (Aldactone) 25 mg PO DAILY [facility] Last Admin: 03/26/18 10:21 Dose: 25 mg Tamsulosin HCl (Flomax) 0.4 mg PO DAILY [facility] Last Admin: 03/26/18 10:21 Dose: 0.4 mg - Labs Labs: 03/26/18 07:20 03/26/18 07:20
[2018-03-26] MEDS: oxyCODONE 10 mg Immediate Release Tab PO PRN ×2 (17:05→21:51)
--- NOTE | 2018-03-26 17:36 | CP.PCM.PN ---
Subjective - Date & Time of Evaluation Date of Evaluation: 03/26/18 Time of Evaluation: 11:20 - Subjective Subjective: Patient seen and examined at bedside today Patient resting comfortably in bed in no distress. Patient states he feels well today. He has no complaints. Objective - Vital Signs/Intake and Output Vital Signs (last 24 hours): Temp Pulse Resp BP Pulse Ox 98.4 F 57 L 20 179/85 H 94 L 03/26/18 15:00 03/26/18 15:00 03/26/18 15:00 03/26/18 15:00 03/26/18 15:00 Intake and Output: 03/26/18 03/26/18 06:59 18:59 Intake Total 200 600 Output Total 1050 Balance 200 -450 - Medications Medications: Current Medications Albuterol/Ipratropium (Duoneb 3 Mg/0.5 Mg (3 Ml) Ud) 3 ml INH RQ4 [facility] Last Admin: 03/26/18 16:00 Dose: 3 ml Bupropion HCl (Wellbutrin Xl) 300 mg PO DAILY [facility] Last Admin: 03/26/18 10:25 Dose: 300 mg Carvedilol (Coreg) 25 mg PO BID [facility] Last Admin: 03/26/18 10:21 Dose: 25 mg Diazepam (Valium) 10 mg PO DAILY [facility] Last Admin: 03/26/18 10:21 Dose: 10 mg Digoxin (Digoxin) 0.125 mg PO DAILY@1800 [facility] Last Admin: 03/25/18 18:02 Dose: 0.125 mg Docusate Sodium (Colace) 100 mg PO TID [facility] Last Admin: 03/26/18 13:21 Dose: 100 mg Duloxetine HCl (Cymbalta) 60 mg PO BID [facility] Last Admin: 03/26/18 10:22 Dose: 60 mg Ergocalciferol (Drisdol 50,000 Intl Units Cap) 1 cap PO Q7D [facility] Last Admin: 03/24/18 11:13 Dose: 1 cap Famotidine (Pepcid) 20 mg PO DAILY [facility] Last Admin: 03/26/18 10:21 Dose: 20 mg Finasteride (Proscar) 5 mg PO DAILY [facility] Last Admin: 03/26/18 10:24 Dose: 5 mg Furosemide (Lasix) 40 mg PO DAILY [facility] Last Admin: 03/26/18 10:22 Dose: 40 mg Azithromycin 500 mg/ Sodium (Chloride) 250 mls @ 250 mls/hr IVPB DAILY [facility] PRN Reason: Protocol Last Admin: 03/26/18 10:46 Dose: 250 mls/hr Ceftriaxone Sodium 1 gm/ (Sodium Chloride) 100 mls @ 200 mls/hr IVPB Q24H [facility] PRN Reason: Protocol Last Admin: 03/26/18 12:07 Dose: 200 mls/hr Insulin Human Regular (Novolin R) 0 unit SC ACHS [facility] PRN Reason: Protocol Last Admin: 03/26/18 17:02 Dose: 4 unit Metformin HCl (Glucophage) 850 mg PO BID [facility] Last Admin: 03/26/18 10:24 Dose: 850 mg Methylprednisolone (Solu-Medrol) 40 mg IVP Q8 [facility] Last Admin: 03/26/18 13:21 Dose: 40 mg Morphine Sulfate (Morphine Extended Release Tab) 60 mg PO Q12H [facility] Last Admin: 03/26/18 12:06 Dose: 60 mg Oxycodone HCl (Oxycodone Immediate Release Tab) 10 mg PO BID PRN PRN Reason: Pain, moderate (4-7) Last Admin: 03/26/18 17:05 Dose: 10 mg Pantoprazole Sodium (Protonix Ec Tab) 20 mg PO DAILY [facility] Last Admin: 03/26/18 10:24 Dose: 20 mg Pregabalin (Lyrica) 225 mg PO QID [facility] Last Admin: 03/26/18 13:21 Dose: 225 mg Rivaroxaban (Xarelto) 20 mg PO DAILY [facility] Last Admin: 03/26/18 10:24 Dose: 20 mg Rosuvastatin Calcium (Crestor) 10 mg PO HS [facility] Last Admin: 03/25/18 21:36 Dose: 10 mg Spironolactone (Aldactone) 25 mg PO DAILY [facility] Last Admin: 03/26/18 10:21 Dose: 25 mg Tamsulosin HCl (Flomax) 0.4 mg PO DAILY [facility] Last Admin: 03/26/18 10:21 Dose: 0.4 mg - Labs Labs: 03/26/18 07:20 03/26/18 07:20 - Head Exam Head Exam: ATRAUMATIC, NORMOCEPHALIC - ENT Exam ENT Exam: Mucous Membranes Moist - Neck Exam Neck Exam: Normal Inspection - Respiratory Exam Respiratory Exam: Decreased Breath Sounds - Cardiovascular Exam Cardiovascular Exam: REGULAR RHYTHM - GI/Abdominal Exam GI & Abdominal Exam: Soft Assessment and Plan - Assessment and Plan (Free Text) Assessment: 1. Pneumonia, Improving - Continue Piperacillin/Tazobactam - Repeat CXR 2. COPD - Continue Solumedrol - Continue Duoneb
[2018-03-26] MEDS: Digoxin 125 mcg (0.125 mg) Tab PO SCH (17:46)
--- NOTE | 2018-03-26 19:03 | CP.PCM.CON ---
History of Present Illness - History of Present Illness History of Present Illness: ID consulted for + Blood cultures 68 year old male was sent to the ED by his KAREN for frequent falls. Patient states that in the ED he was found to have pneumonia. Patient states his roommate at the [facility] has been sick and coughing a lot. Patient states he has been slipping a lot at the [facility] since his knee replacement. He has been using a wheelchair frequently to get around. Patient denies any head trauma. Patient states he did not have a problem with falls prior to knee replacement surgery. Patient denies chest pain, shortness of breath, cough, nausea, vomiting, diarrhea, constipation, abdominal pain, fever, chills, or dizziness. PMHx: DM, HTN, CHF, A.Fib, previous episodes of pneumonia, COPD chronic pain s /p medtronic pain pump infection 2016 reimplanted 2016 PSH: Right knee replacement Dec 2017, laminectomy for spinal stenosis 1998 Allergies: NKDA Medications: Oxycodone 15mg Q4, Lyrica 225mg QID, Valium 10mg. Metformin 850mg BID, Wellbutrin 300mg, Lasix 40mg, Finasteride 5mg, Colace 100mg TID, Digoxin 125mcg, Cymbalta 60mg BID, Vitamin D3, Coreg 25mg BID, Flomax 0.4mg , Spirnolactone 25mg, Crestor 10mg, Xarelto 20mg, MS Contin 60mg BID Fam HX: Unknown Social Hx: Lives alone, retired. Denies tobacco use in past or present. Denies recent alcohol or illicit drug use. Review of Systems - Review of Systems All systems: reviewed and no additional remarkable complaints except - Constitutional Constitutional: As Per HPI - EENT Eyes: absent: As Per HPI, Blind Spots, Blurred Vision, Change in Vision, Decreased Night Vision, Diplopia, Discharge, Dry Eye, Exophthalmos, Floaters, Irritation, Itchy Eyes, Loss of Peripheral Vision, Pain, Photophobia, Requires Corrective Lenses, Sees Flashes, Spots in Vision, Tunnel Vision, Other Visual Disturbances, Loss of Vision, Other Ears: absent: As Per HPI, Decreased Hearing, Ear Discharge, Ear Pain, Tinnitus, Abnormal Hearing, Disequilibrium, Dizziness, Other Nose/Mouth/Throat: absent: As Per HPI, Epistaxis, Nasal Congestion, Nasal Discharge, Nasal Obstruction, Nasal Trauma, Nose Pain, Post Nasal Drip, Sinus Pain, Sinus Pressure, Bleeding Gums, Change in Voice, Dental Pain, Dry Mouth, Dysphagia, Halitosis, Hoarsness, Lip Swelling, Mouth Lesions, Mouth Pain, Odynophagia, Sore Throat, Throat Swelling, Tongue Swelling, Facial Pain, Neck Pain, Neck Mass, Other - Cardiovascular Cardiovascular: absent: As Per HPI, Acrocyanosis, Chest Pain, Chest Pain at Rest , Chest Pain with Activity, Claudication, Diaphoresis, Dyspnea, Dyspnea on Exertion, Edema, Irregular Heart Rhythm, Pain Radiating to Arm/Neck/Jaw, Leg Edema, Leg Ulcers, Lightheadedness, Orthopnea, Palpitations, Paroxysmal Nocturnal Dyspnea, Pedal Edema, Radiating Pain, Rapid Heart Rate, Slow Heart Rate, Syncope, Other - Respiratory Respiratory: As Per HPI - Gastrointestinal Gastrointestinal: absent: As Per HPI, Abdominal Pain, Belching, Bloating, Change in Bowel Habits, Change in Stool Character, Coffee Ground Emesis, Constipation, Cramping, Diarrhea, Dyspepsia, Dysphagia, Early Satiety, Excessive Flatus, Fecal Incontinence, Heartburn, Hematemesis, Hematochezia, Loose Stools, Melena, Nausea, Odynophagia, Temesmus, Vomiting, Other - Musculoskeletal Musculoskeletal: As Per HPI - Integumentary Integumentary: As Per HPI - Neurological Neurological: As Per HPI - Psychiatric Psychiatric: absent: As Per HPI, Abnormal Sleep Pattern, Anhedonia, Anxiety, Auditory Hallucinations, Behavioral Changes, Change in Appetite, Change in Libido, Confusion, Depression, Difficulty Concentrating, Hallucinations, Homicidal Ideation, Hopelessness, Irritability, Memory Loss, Mood Swings, Panic Attacks, Paranoia, Suicidal Ideation, Visual Hallucinations, Tactile Hallucinations, Other - Endocrine Endocrine: absent: As Per HPI, Change in Body Appearance, Change in Libido, Cold Intolorance, Deepening of Voice, Excessive Sweating, Fatigue, Flushing, Heat Intolorance, Increase in Ring/Shoe/Hat Size, Palpitations, Polydipsia, Polyphagia, Polyuria, Other - Hematologic/Lymphatic Hematologic: absent: As Per HPI, Easy Bleeding, Easy Bruising, Lymphadenopathy, Other Past Patient History - Infectious Disease Hx of Infectious Diseases: None - Tetanus Immunizations Tetanus Immunization: Unknown - Past Medical History & Family History Past Medical History?: Yes - Past Social History Smoking Status: Never Smoked - CARDIAC Hx Atrial Fibrillation: Yes Hx Cardia Arrhythmia: Yes (atrial fib) Hx Congestive Heart Failure: Yes Hx Hypercholesterolemia: Yes Hx Hypertension: Yes - PULMONARY Hx Chronic Obstructive Pulmonary Disease (COPD): Yes Hx Pneumonia: Yes (10 YEARS AGO) - NEUROLOGICAL Hx Neurological Disorder: Yes (PERIPHERAL NEUROPATHY) Other/Comment: hand tremors DUE TO NERVES - HEENT Hx HEENT Problems: No - RENAL Hx Chronic Kidney Disease: No - ENDOCRINE/METABOLIC Hx Diabetes Mellitus Type 2: Yes - HEMATOLOGICAL/ONCOLOGICAL Hx Blood Disorders: No - INTEGUMENTARY Other/Comment: Mass, scalp - MUSCULOSKELETAL/RHEUMATOLOGICAL Hx Falls: Yes - GENITOURINARY/GYNECOLOGICAL Hx Genitourinary Disorders: Yes (+LEGIONELLA IN THE URINE,FREQUENCY,) Hx Prostate Problems: Yes (BPH) - PSYCHIATRIC Hx Substance Use: No - SURGICAL HISTORY Hx Surgeries: Yes Hx Arthroscopy: Yes (BILAT KNEES) Hx Musculoskeletal Surgery: Yes (LUMBAR LAMINECTOMY) Hx Open Reduction Internal Fixation: Yes (RIGHT ELBOW) Hx Orthopedic Surgery: (RT knee 12/18/17) Other/Comment: INSERTION PAIN CONTROL STIMULATOR LUMBAR - ANESTHESIA Hx Anesthesia: Yes Hx Anesthesia Reactions: No Hx Malignant Hyperthermia: No Has any member of the family had a problem w/ anesthesia?: No Meds Allergies/Adverse Reactions: Allergies Allergy/AdvReac Type Severity Reaction Status Date / Time No Known Allergies Allergy Verified 01/20/18 08:12 - Medications Medications: Current Medications Albuterol/Ipratropium (Duoneb 3 Mg/0.5 Mg (3 Ml) Ud) 3 ml INH RQ4 [facility] Last Admin: 03/26/18 16:00 Dose: 3 ml Bupropion HCl (Wellbutrin Xl) 300 mg PO DAILY [facility] Last Admin: 03/26/18 10:25 Dose: 300 mg Carvedilol (Coreg) 25 mg PO BID [facility] Last Admin: 03/26/18 17:44 Dose: 25 mg Diazepam (Valium) 10 mg PO DAILY [facility] Last Admin: 03/26/18 10:21 Dose: 10 mg Digoxin (Digoxin) 0.125 mg PO DAILY@1800 [facility] Last Admin: 03/26/18 17:46 Dose: Not Given Docusate Sodium (Colace) 100 mg PO TID [facility] Last Admin: 03/26/18 17:43 Dose: 100 mg Duloxetine HCl (Cymbalta) 60 mg PO BID [facility] Last Admin: 03/26/18 17:44 Dose: 60 mg Ergocalciferol (Drisdol 50,000 Intl Units Cap) 1 cap PO Q7D [facility] Last Admin: 03/24/18 11:13 Dose: 1 cap Famotidine (Pepcid) 20 mg PO DAILY [facility] Last Admin: 03/26/18 10:21 Dose: 20 mg Finasteride (Proscar) 5 mg PO DAILY [facility] Last Admin: 03/26/18 10:24 Dose: 5 mg Furosemide (Lasix) 40 mg PO DAILY [facility] Last Admin: 03/26/18 10:22 Dose: 40 mg Azithromycin 500 mg/ Sodium (Chloride) 250 mls @ 250 mls/hr IVPB DAILY [facility] PRN Reason: Protocol Last Admin: 03/26/18 10:46 Dose: 250 mls/hr Ceftriaxone Sodium 1 gm/ (Sodium Chloride) 100 mls @ 200 mls/hr IVPB Q24H [facility] PRN Reason: Protocol Last Admin: 03/26/18 12:07 Dose: 200 mls/hr Insulin Human Regular (Novolin R) 0 unit SC ACHS [facility] PRN Reason: Protocol Last Admin: 03/26/18 17:02 Dose: 4 unit Metformin HCl (Glucophage) 850 mg PO BID [facility] Last Admin: 03/26/18 17:45 Dose: 850 mg Methylprednisolone (Solu-Medrol) 40 mg IVP Q8 [facility] Last Admin: 03/26/18 13:21 Dose: 40 mg Morphine Sulfate (Morphine Extended Release Tab) 60 mg PO Q12H [facility] Last Admin: 03/26/18 12:06 Dose: 60 mg Oxycodone HCl (Oxycodone Immediate Release Tab) 10 mg PO BID PRN PRN Reason: Pain, moderate (4-7) Last Admin: 03/26/18 17:05 Dose: 10 mg Pantoprazole Sodium (Protonix Ec Tab) 20 mg PO DAILY [facility] Last Admin: 03/26/18 10:24 Dose: 20 mg Pregabalin (Lyrica) 225 mg PO QID [facility] Last Admin: 03/26/18 17:46 Dose: 225 mg Rivaroxaban (Xarelto) 20 mg PO DAILY [facility] Last Admin: 03/26/18 10:24 Dose: 20 mg Rosuvastatin Calcium (Crestor) 10 mg PO HS [facility] Last Admin: 03/25/18 21:36 Dose: 10 mg Spironolactone (Aldactone) 25 mg PO DAILY [facility] Last Admin: 03/26/18 10:21 Dose: 25 mg Tamsulosin HCl (Flomax) 0.4 mg PO DAILY [facility] Last Admin: 03/26/18 10:21 Dose: 0.4 mg Physical Exam - Constitutional Appears: Chronically Ill - Head Exam Head Exam: ATRAUMATIC - Eye Exam Eye Exam: absent: Scleral icterus - ENT Exam ENT Exam: Mucous Membranes Dry - Neck Exam Neck exam: Negative for: Lymphadenopathy - Respiratory Exam Respiratory Exam: Decreased Breath Sounds - Cardiovascular Exam Cardiovascular Exam: REGULAR RHYTHM - GI/Abdominal Exam GI & Abdominal Exam: Diminished Bowel Sounds, Soft. absent: Tenderness - Rectal Exam Rectal Exam: Deferred - Exam Exam: NORMAL INSPECTION - Extremities Exam Extremities exam: Positive for: tenderness, pedal pulses present. Negative for : calf tenderness, pedal edema - Back Exam Back exam: absent: CVA tenderness (L), CVA tenderness (R) - Neurological Exam Neurological exam: Alert, CN II-XII Intact, Oriented x3, Reflexes Normal - Psychiatric Exam Psychiatric exam: Depressed - Skin Skin Exam: Dry Results - Vital Signs Recent Vital Signs: Last Vital Signs Temp 98.4 F 03/26/18 15:00 Pulse 57 L 03/26/18 15:00 Resp 20 03/26/18 15:00 BP 179/85 H 03/26/18 17:44 Pulse Ox 94 L 03/26/18 15:00 - Labs Result Diagrams: 03/26/18 07:20 03/26/18 07:20 Labs: Laboratory Results - last 24 hr 03/25/18 03/26/18 03/26/18 21:40 02:00 07:14 WBC RBC Hgb Hct MCV MCH MCHC RDW Plt Count MPV Neut % (Auto) Lymph % (Auto) Norton % (Auto) Eos % (Auto) Baso % (Auto) Neut # (Auto) Lymph # (Auto) Norton # (Auto) Eos # (Auto) Baso # (Auto) Differential Comment Sodium Potassium Chloride Carbon Dioxide Anion Gap BUN Creatinine Est GFR ( Amer) Est GFR (Non-Af Amer) POC Glucose (mg/dL) 346 H 323 H 271 H Random Glucose Hemoglobin A1c Calcium 0503/26/18 03/26/18 07:20 07:20 07:20 WBC 7.5 RBC 4.68 Hgb 12.9 Hct 38.1 MCV 81.3 MCH 27.5 MCHC 33.9 RDW 15.1 H Plt Count 128 L MPV 9.0 Neut % (Auto) 81.7 H Lymph % (Auto) 11.7 L Norton % (Auto) 6.5 Eos % (Auto) 0.0 Baso % (Auto) 0.1 Neut # (Auto) 6.1 Lymph # (Auto) 0.9 L Norton # (Auto) 0.5 Eos # (Auto) 0.0 Baso # (Auto) 0.0 Differential Comment Sodium 138 Potassium 5.1 Chloride 94 L Carbon Dioxide 33 H Anion Gap 16 BUN 33 H Creatinine 0.9 Est GFR ( Amer) > 60 Est GFR (Non-Af Amer) > 60 POC Glucose (mg/dL) Random Glucose 252 H Hemoglobin A1c 7.3 H Calcium 8.6 03/26/18 03/26/18 11:38 16:09 WBC RBC Hgb Hct MCV MCH MCHC RDW Plt Count MPV Neut % (Auto) Lymph % (Auto) Norton % (Auto) Eos % (Auto) Baso % (Auto) Neut # (Auto) Lymph # (Auto) Norton # (Auto) Eos # (Auto) Baso # (Auto) Differential Comment Sodium Potassium Chloride Carbon Dioxide Anion Gap BUN Creatinine Est GFR ( Amer) Est GFR (Non-Af Amer) POC Glucose (mg/dL) 387 H 288 H Random Glucose Hemoglobin A1c Calcium Assessment & Plan (1) Bacteremia Status: Acute (2) Pneumonia Status: Acute - Assessment and Plan (Free Text) Assessment: recc ortho eval right TKR r/o septic arthritis recc cardio eval for echo r/o endocarditis cont IV antibiotics min 14 days
--- NOTE | 2018-03-26 21:05 | CP.PCM.PN ---
Subjective - Date & Time of Evaluation Date of Evaluation: 03/26/18 Time of Evaluation: 08:20 - Subjective Subjective: clinically same Objective - Vital Signs/Intake and Output Vital Signs (last 24 hours): Temp Pulse Resp BP Pulse Ox 98.4 F 57 L 20 179/85 H 94 L 03/26/18 15:00 03/26/18 15:00 03/26/18 15:00 03/26/18 17:44 03/26/18 15:00 Intake and Output: 03/26/18 03/27/18 18:59 06:59 Intake Total 600 Output Total 1050 Balance -450 - Medications Medications: Current Medications Albuterol/Ipratropium (Duoneb 3 Mg/0.5 Mg (3 Ml) Ud) 3 ml INH RQ4 [facility] Last Admin: 03/26/18 20:00 Dose: 3 ml Bupropion HCl (Wellbutrin Xl) 300 mg PO DAILY [facility] Last Admin: 03/26/18 10:25 Dose: 300 mg Carvedilol (Coreg) 25 mg PO BID [facility] Last Admin: 03/26/18 17:44 Dose: 25 mg Diazepam (Valium) 10 mg PO DAILY [facility] Last Admin: 03/26/18 10:21 Dose: 10 mg Digoxin (Digoxin) 0.125 mg PO DAILY@1800 [facility] Last Admin: 03/26/18 17:46 Dose: Not Given Docusate Sodium (Colace) 100 mg PO TID [facility] Last Admin: 03/26/18 17:43 Dose: 100 mg Duloxetine HCl (Cymbalta) 60 mg PO BID [facility] Last Admin: 03/26/18 17:44 Dose: 60 mg Ergocalciferol (Drisdol 50,000 Intl Units Cap) 1 cap PO Q7D [facility] Last Admin: 03/24/18 11:13 Dose: 1 cap Famotidine (Pepcid) 20 mg PO DAILY [facility] Last Admin: 03/26/18 10:21 Dose: 20 mg Finasteride (Proscar) 5 mg PO DAILY [facility] Last Admin: 03/26/18 10:24 Dose: 5 mg Furosemide (Lasix) 40 mg PO DAILY [facility] Last Admin: 03/26/18 10:22 Dose: 40 mg Azithromycin 500 mg/ Sodium (Chloride) 250 mls @ 250 mls/hr IVPB DAILY [facility] PRN Reason: Protocol Last Admin: 03/26/18 10:46 Dose: 250 mls/hr Ceftriaxone Sodium 1 gm/ (Sodium Chloride) 100 mls @ 200 mls/hr IVPB Q24H [facility] PRN Reason: Protocol Last Admin: 03/26/18 12:07 Dose: 200 mls/hr Insulin Human Regular (Novolin R) 0 unit SC ACHS [facility] PRN Reason: Protocol Last Admin: 03/26/18 17:02 Dose: 4 unit Metformin HCl (Glucophage) 850 mg PO BID [facility] Last Admin: 03/26/18 17:45 Dose: 850 mg Methylprednisolone (Solu-Medrol) 40 mg IVP Q8 [facility] Last Admin: 03/26/18 13:21 Dose: 40 mg Morphine Sulfate (Morphine Extended Release Tab) 60 mg PO Q12H [facility] Last Admin: 03/26/18 12:06 Dose: 60 mg Oxycodone HCl (Oxycodone Immediate Release Tab) 10 mg PO BID PRN PRN Reason: Pain, moderate (4-7) Last Admin: 03/26/18 17:05 Dose: 10 mg Pantoprazole Sodium (Protonix Ec Tab) 20 mg PO DAILY [facility] Last Admin: 03/26/18 10:24 Dose: 20 mg Pregabalin (Lyrica) 225 mg PO QID [facility] Last Admin: 03/26/18 17:46 Dose: 225 mg Rivaroxaban (Xarelto) 20 mg PO DAILY [facility] Last Admin: 03/26/18 10:24 Dose: 20 mg Rosuvastatin Calcium (Crestor) 10 mg PO HS [facility] Last Admin: 03/25/18 21:36 Dose: 10 mg Spironolactone (Aldactone) 25 mg PO DAILY [facility] Last Admin: 03/26/18 10:21 Dose: 25 mg Tamsulosin HCl (Flomax) 0.4 mg PO DAILY [facility] Last Admin: 03/26/18 10:21 Dose: 0.4 mg - Labs Labs: 03/26/18 07:20 03/26/18 07:20 - Constitutional Appears: Well - Head Exam Head Exam: ATRAUMATIC, NORMAL INSPECTION, NORMOCEPHALIC - Eye Exam Eye Exam: EOMI, Normal appearance, PERRL Pupil Exam: NORMAL ACCOMODATION, PERRL - ENT Exam ENT Exam: Mucous Membranes Moist, Normal Exam - Neck Exam Neck Exam: Full ROM, Normal Inspection. absent: Lymphadenopathy - Respiratory Exam Respiratory Exam: Decreased Breath Sounds - Cardiovascular Exam Cardiovascular Exam: REGULAR RHYTHM, +S1, +S2 - GI/Abdominal Exam GI & Abdominal Exam: Soft, Diminished Bowel Sounds - Rectal Exam Rectal Exam: Deferred
[2018-03-27] MEDS: Albuterol-Ipratrop 3 mg / 0.5 (3 ml) UD INH SCH ×6 (03:09→23:56)
[2018-03-27] MEDS: MethylPREDNISolone 40 mg Vial IVP SCH ×3 (05:30→22:02)
[2018-03-27 07:39] LABS: HEMOGLOBIN 13.3 g/dL (12.0-18.0); MEAN CELL VOLUME 81.5 fL (80.0-94.0); MEAN CORPUSCULAR HEMOGLOBIN 27.2 pg (27.0-31.0); MEAN CORPUSCULAR HGB CONC 33.4 g/dL (33.0-37.0); RBC 4.9 Mil/uL (4.40-5.90); RED CELL DISTRIBUTION WIDTH 15.2 % (11.5-14.5); WHITE BLOOD COUNT 6.1 K/uL (4.8-10.8)
[2018-03-27 07:46] LABS: BLOOD UREA NITROGEN 36 mg/dL (9-20); CALCIUM 8.7 mg/dl (8.6-10.4); GFR AFRICAN-AMERICAN > 60; GFR NON-AFRICAN AMERICAN > 60
--- NOTE | 2018-03-27 09:08 | CP.PCM.CON ---
History of Present Illness - History of Present Illness History of Present Illness: 66 y/o male: well known to my partner Dr. Zelaya: Hx of NICM with interval improvement to normal, P. AFIB, DM, Hx of Chronic narcotic use due to OA HIP; hx of morphine pump; Depression, * normal stress test in 2014 sent to the ED by his K[facility]EN for frequent falls. Patient states that in the ED he was found to have pneumonia. Patient states his [facility] has been sick and coughing a lot. Patient states he has been slipping a lot at the [facility] since his knee replacement. He has been using a wheelchair frequently to get around. Patient denies any head trauma. Patient states he did not have a problem with falls prior to knee replacement surgery. ---> We Are consulted for + blood cultures (Strp in blood and e.coli in urine) and eval for possible IE. NO CP No fevers or chills Baseline NYHA 2 chronic diastolic dysfunction and mild systolic dysfunction. No N/V A&Ox3 PMHX: as above PSHX: as above, no PCI/CABG, recent R. knee TKR and subsequent mechanical fall injuring same leg. s/p medtronic pain pump infection 2016 reimplanted 2017 ROS: depression, minimally active due to AO SOCHX: no TOB, recreational drugs; hx of ETOH in past Past Patient History - Infectious Disease Hx of Infectious Diseases: None - Tetanus Immunizations Tetanus Immunization: Unknown - Past Medical History & Family History Past Medical History?: Yes - Past Social History Smoking Status: Never Smoked - CARDIAC Hx Atrial Fibrillation: Yes Hx Cardia Arrhythmia: Yes (atrial fib) Hx Congestive Heart Failure: Yes Hx Hypercholesterolemia: Yes Hx Hypertension: Yes - PULMONARY Hx Chronic Obstructive Pulmonary Disease (COPD): Yes Hx Pneumonia: Yes (10 YEARS AGO) - NEUROLOGICAL Hx Neurological Disorder: Yes (PERIPHERAL NEUROPATHY) Other/Comment: hand tremors DUE TO NERVES - HEENT Hx HEENT Problems: No - RENAL Hx Chronic Kidney Disease: No - ENDOCRINE/METABOLIC Hx Diabetes Mellitus Type 2: Yes - HEMATOLOGICAL/ONCOLOGICAL Hx Blood Disorders: No - INTEGUMENTARY Other/Comment: Mass, scalp - MUSCULOSKELETAL/RHEUMATOLOGICAL Hx Falls: Yes - GENITOURINARY/GYNECOLOGICAL Hx Genitourinary Disorders: Yes (+LEGIONELLA IN THE URINE,FREQUENCY,) Hx Prostate Problems: Yes (BPH) - PSYCHIATRIC Hx Substance Use: No - SURGICAL HISTORY Hx Surgeries: Yes Hx Arthroscopy: Yes (BILAT KNEES) Hx Musculoskeletal Surgery: Yes (LUMBAR LAMINECTOMY) Hx Open Reduction Internal Fixation: Yes (RIGHT ELBOW) Hx Orthopedic Surgery: (RT knee 12/18/17) Other/Comment: INSERTION PAIN CONTROL STIMULATOR LUMBAR - ANESTHESIA Hx Anesthesia: Yes Hx Anesthesia Reactions: No Hx Malignant Hyperthermia: No Has any member of the family had a problem w/ anesthesia?: No Meds Allergies/Adverse Reactions: Allergies Allergy/AdvReac Type Severity Reaction Status Date / Time No Known Allergies Allergy Verified 01/20/18 08:12 - Medications Medications: Current Medications Albuterol/Ipratropium (Duoneb 3 Mg/0.5 Mg (3 Ml) Ud) 3 ml INH RQ4 [facility] Last Admin: 03/27/18 07:14 Dose: 3 ml Bupropion HCl (Wellbutrin Xl) 300 mg PO DAILY [facility] Last Admin: 03/26/18 10:25 Dose: 300 mg Carvedilol (Coreg) 25 mg PO BID [facility] Last Admin: 03/26/18 17:44 Dose: 25 mg Diazepam (Valium) 10 mg PO DAILY [facility] Last Admin: 03/26/18 10:21 Dose: 10 mg Digoxin (Digoxin) 0.125 mg PO DAILY@1800 [facility] Last Admin: 03/26/18 17:46 Dose: Not Given Docusate Sodium (Colace) 100 mg PO TID [facility] Last Admin: 03/26/18 17:43 Dose: 100 mg Duloxetine HCl (Cymbalta) 60 mg PO BID [facility] Last Admin: 03/26/18 17:44 Dose: 60 mg Ergocalciferol (Drisdol 50,000 Intl Units Cap) 1 cap PO Q7D [facility] Last Admin: 03/24/18 11:13 Dose: 1 cap Famotidine (Pepcid) 20 mg PO DAILY [facility] Last Admin: 03/26/18 10:21 Dose: 20 mg Finasteride (Proscar) 5 mg PO DAILY [facility] Last Admin: 03/26/18 10:24 Dose: 5 mg Furosemide (Lasix) 40 mg PO DAILY [facility] Last Admin: 03/26/18 10:22 Dose: 40 mg Azithromycin 500 mg/ Sodium (Chloride) 250 mls @ 250 mls/hr IVPB DAILY [facility] PRN Reason: Protocol Last Admin: 03/26/18 10:46 Dose: 250 mls/hr Ceftriaxone Sodium 1 gm/ (Sodium Chloride) 100 mls @ 200 mls/hr IVPB Q24H [facility] PRN Reason: Protocol Last Admin: 03/26/18 12:07 Dose: 200 mls/hr Insulin Human Regular (Novolin R) 0 unit SC ACHS [facility] PRN Reason: Protocol Last Admin: 03/26/18 21:48 Dose: Not Given Metformin HCl (Glucophage) 850 mg PO BID [facility] Last Admin: 03/26/18 17:45 Dose: 850 mg Methylprednisolone (Solu-Medrol) 40 mg IVP Q8 [facility] Last Admin: 03/27/18 05:30 Dose: 40 mg Morphine Sulfate (Morphine Extended Release Tab) 60 mg PO Q12H [facility] Last Admin: 03/26/18 23:55 Dose: 60 mg Oxycodone HCl (Oxycodone Immediate Release Tab) 10 mg PO BID PRN PRN Reason: Pain, moderate (4-7) Last Admin: 03/26/18 21:51 Dose: 10 mg Pantoprazole Sodium (Protonix Ec Tab) 20 mg PO DAILY [facility] Last Admin: 03/26/18 10:24 Dose: 20 mg Pregabalin (Lyrica) 225 mg PO QID [facility] Last Admin: 03/26/18 21:49 Dose: 225 mg Rivaroxaban (Xarelto) 20 mg PO DAILY [facility] Last Admin: 03/26/18 10:24 Dose: 20 mg Rosuvastatin Calcium (Crestor) 10 mg PO HS [facility] Last Admin: 03/26/18 21:49 Dose: 10 mg Spironolactone (Aldactone) 25 mg PO DAILY [facility] Last Admin: 03/26/18 10:21 Dose: 25 mg Tamsulosin HCl (Flomax) 0.4 mg PO DAILY [facility] Last Admin: 03/26/18 10:21 Dose: 0.4 mg Physical Exam - Constitutional Appears: No Acute Distress, Chronically Ill - Head Exam Head Exam: ATRAUMATIC, NORMAL INSPECTION, NORMOCEPHALIC - Eye Exam Eye Exam: EOMI, Normal appearance, PERRL - ENT Exam ENT Exam: Mucous Membranes Moist, Normal Oropharynx - Neck Exam Neck exam: Positive for: Full Rom. Negative for: Tenderness - Respiratory Exam Respiratory Exam: Rhonchi, NORMAL BREATHING PATTERN. absent: Wheezes - Cardiovascular Exam Cardiovascular Exam: REGULAR RHYTHM, +S1, +S2. absent: Diastolic murmur, Gallop , Systolic Murmur - GI/Abdominal Exam GI & Abdominal Exam: Normal Bowel Sounds, Soft. absent: Tenderness - Extremities Exam Extremities exam: Positive for: pedal edema (trace LE edema B/L), pedal pulses present. Negative for: calf tenderness - Neurological Exam Neurological exam: Alert, Oriented x3 - Psychiatric Exam Psychiatric exam: Normal Affect, Normal Mood - Skin Skin Exam: Normal Color, Warm Results - Vital Signs Recent Vital Signs: Last Vital Signs Temp 97.9 F 03/26/18 23:10 Pulse 89 03/26/18 23:10 Resp 20 03/26/18 23:10 BP 148/77 03/26/18 23:10 Pulse Ox 97 03/26/18 23:10 - Labs Result Diagrams: 03/27/18 07:25 03/27/18 07:25 Labs: Laboratory Results - last 24 hr 03/26/18 03/26/18 03/26/18 07:20 11:38 16:09 WBC 7.5 RBC 4.68 Hgb 12.9 Hct 38.1 MCV 81.3 MCH 27.5 MCHC 33.9 RDW 15.1 H Plt Count 128 L MPV 9.0 Neut % (Auto) 81.7 H Lymph % (Auto) 11.7 L [place] % (Auto) 6.5 Eos % (Auto) 0.0 Baso % (Auto) 0.1 Neut # (Auto) 6.1 Lymph # (Auto) 0.9 L [place] # (Auto) 0.5 Eos # (Auto) 0.0 Baso # (Auto) 0.0 Differential Comment Sodium Potassium Chloride Carbon Dioxide Anion Gap BUN Creatinine Est GFR ( Amer) Est GFR (Non-Af Amer) POC Glucose (mg/dL) 387 H 288 H Random Glucose Calcium 03/26/18 03/27/18 03/27/18 21:22 07:18 07:25 WBC 6.1 RBC 4.90 Hgb 13.3 Hct 39.9 MCV 81.5 MCH 27.2 MCHC 33.4 RDW 15.2 H Plt Count 126 L MPV 9.0 Neut % (Auto) Lymph % (Auto) [place] % (Auto) Eos % (Auto) Baso % (Auto) Neut # (Auto) Lymph # (Auto) [place] # (Auto) Eos # (Auto) Baso # (Auto) Differential Comment Sodium Potassium Chloride Carbon Dioxide Anion Gap BUN Creatinine Est GFR ( Amer) Est GFR (Non-Af Amer) POC Glucose (mg/dL) 296 H 300 H Random Glucose Calcium 03/27/18 07:25 WBC RBC Hgb Hct MCV MCH MCHC RDW Plt Count MPV Neut % (Auto) Lymph % (Auto) [place] % (Auto) Eos % (Auto) Baso % (Auto) Neut # (Auto) Lymph # (Auto) [place] # (Auto) Eos # (Auto) Baso # (Auto) Differential Comment Sodium 138 Potassium 5.1 Chloride 91 L Carbon Dioxide 32 H Anion Gap 20 BUN 36 H Creatinine 0.9 Est GFR ( Amer) > 60 Est GFR (Non-Af Amer) > 60 POC Glucose (mg/dL) Random Glucose 285 H Calcium 8.7 - EKG Data EKG Interpreted by: Myself Rate: Normal Assessment & Plan - Assessment and Plan (Free Text) Assessment: 68 y/o + PNA, + blood cx's, + UTI * Chronic diastolic dysfunction * parox AFIB * HTN * DM * Recent R. Knee TKR > Echo 01/20/18: Normal EF, LVH, diastolic dysfunction > EK03/23/18: NSR, no ischemic changes Cardiac Meds: Carvedilol (Coreg) 25 mg PO BID [facility] Digoxin (Digoxin) 0.125 mg PO DAILY@1800 [facility] Furosemide (Lasix) 40 mg PO DAILY [facility] Rivaroxaban (Xarelto) 20 mg PO DAILY [facility] Rosuvastatin Calcium (Crestor) 10 mg PO HS [facility] Spironolactone (Aldactone) 25 mg PO DAILY [facility] PLAN: Add diovan 160 for added BP control Increase lasix to 40IV BID for better diuresis f/u echo: if suspicious findings will consider DANILO either as in patient or outpatient: suggest continued ABX as directed by growth and suseptibility: and will decided timing based on proposed imaging.
[2018-03-27] MEDS: buPROPion 150 mg/24 Hours XL Tab PO SCH (10:17)
[2018-03-27] MEDS: Pantoprazole 20 mg EC Tab PO SCH (10:18)
[2018-03-27] MEDS: (Novolin R) Insulin Human Regular 100 units/ml vial SC SCH ×3 (10:19→17:30)
[2018-03-27] MEDS: Azithromycin 500 MG in Sodium Chloride 0.9% 250 ML IVPB SCH (10:20)
[2018-03-27] MEDS: Morphine 30 mg SR Tab PO SCH ×2 (10:54→23:30)
--- NOTE | 2018-03-27 12:48 | CP.PCM.PN ---
Subjective - Date & Time of Evaluation Date of Evaluation: 03/27/18 Time of Evaluation: 11:20 - Subjective Subjective: Patient seen and examined at bedside today Patient was sitting in chair eating, in no acute distress. Patient states he feels well today. He denies shortness of breath or chest pain. 1. Pneumonia, Improving, Blood cultures positive for Streptococcus - WBC 6.1 - Afebrile - Continue Piperacillin/Tazobactam -patient seen by cardiology and Lasix increased 2. COPD - Continue Solumedrol - Continue Duoneb Objective - Vital Signs/Intake and Output Vital Signs (last 24 hours): Temp Pulse Resp BP Pulse Ox 98.8 F 69 20 150/72 95 03/27/18 07:00 03/27/18 07:00 03/27/18 07:00 03/27/18 10:19 03/27/18 07:00 Intake and Output: 03/27/18 03/27/18 06:59 18:59 Intake Total 240 Balance 240 - Medications Medications: Current Medications Albuterol/Ipratropium (Duoneb 3 Mg/0.5 Mg (3 Ml) Ud) 3 ml INH RQ4 [facility] Last Admin: 03/27/18 07:14 Dose: 3 ml Bupropion HCl (Wellbutrin Xl) 300 mg PO DAILY [facility] Last Admin: 03/27/18 10:17 Dose: 300 mg Carvedilol (Coreg) 25 mg PO BID [facility] Last Admin: 03/27/18 10:18 Dose: 25 mg Diazepam (Valium) 10 mg PO DAILY [facility] Last Admin: 03/27/18 10:18 Dose: 10 mg Digoxin (Digoxin) 0.125 mg PO DAILY@1800 [facility] Last Admin: 03/26/18 17:46 Dose: Not Given Docusate Sodium (Colace) 100 mg PO TID [facility] Last Admin: 03/27/18 10:18 Dose: 100 mg Duloxetine HCl (Cymbalta) 60 mg PO BID [facility] Last Admin: 03/27/18 10:18 Dose: 60 mg Ergocalciferol (Drisdol 50,000 Intl Units Cap) 1 cap PO Q7D [facility] Last Admin: 03/24/18 11:13 Dose: 1 cap Famotidine (Pepcid) 20 mg PO DAILY [facility] Last Admin: 03/27/18 10:18 Dose: 20 mg Finasteride (Proscar) 5 mg PO DAILY [facility] Last Admin: 03/27/18 10:18 Dose: 5 mg Furosemide (Lasix) 40 mg PO DAILY [facility] Last Admin: 03/27/18 10:19 Dose: 40 mg Azithromycin 500 mg/ Sodium (Chloride) 250 mls @ 250 mls/hr IVPB DAILY [facility] PRN Reason: Protocol Last Admin: 03/27/18 10:20 Dose: 250 mls/hr Ceftriaxone Sodium 1 gm/ (Sodium Chloride) 100 mls @ 200 mls/hr IVPB Q24H [facility] PRN Reason: Protocol Last Admin: 03/27/18 12:05 Dose: 200 mls/hr Insulin Human Regular (Novolin R) 0 unit SC ACHS [facility] PRN Reason: Protocol Last Admin: 03/27/18 10:19 Dose: 6 unit Metformin HCl (Glucophage) 850 mg PO BID [facility] Last Admin: 03/27/18 10:17 Dose: 850 mg Methylprednisolone (Solu-Medrol) 40 mg IVP Q8 [facility] Last Admin: 03/27/18 05:30 Dose: 40 mg Morphine Sulfate (Morphine Extended Release Tab) 60 mg PO Q12H [facility] Last Admin: 03/27/18 10:54 Dose: 60 mg Oxycodone HCl (Oxycodone Immediate Release Tab) 10 mg PO BID PRN PRN Reason: Pain, moderate (4-7) Last Admin: 03/26/18 21:51 Dose: 10 mg Pantoprazole Sodium (Protonix Ec Tab) 20 mg PO DAILY [facility] Last Admin: 03/27/18 10:18 Dose: 20 mg Pregabalin (Lyrica) 225 mg PO QID [facility] Last Admin: 03/27/18 10:16 Dose: 225 mg Rivaroxaban (Xarelto) 20 mg PO DAILY [facility] Last Admin: 03/27/18 10:18 Dose: 20 mg Rosuvastatin Calcium (Crestor) 10 mg PO HS [facility] Last Admin: 03/26/18 21:49 Dose: 10 mg Spironolactone (Aldactone) 25 mg PO DAILY [facility] Last Admin: 03/27/18 10:17 Dose: 25 mg Tamsulosin HCl (Flomax) 0.4 mg PO DAILY [facility] Last Admin: 03/27/18 10:18 Dose: 0.4 mg - Labs Labs: 03/27/18 07:25 03/27/18 07:25
--- NOTE | 2018-03-27 16:38 | CP.PCM.PN ---
Subjective - Date & Time of Evaluation Date of Evaluation: 03/27/18 Time of Evaluation: 08:40 - Subjective Subjective: clinically same Objective - Vital Signs/Intake and Output Vital Signs (last 24 hours): Temp Pulse Resp BP Pulse Ox 98.8 F 69 20 150/72 95 03/27/18 07:00 03/27/18 07:00 03/27/18 07:00 03/27/18 10:19 03/27/18 07:00 Intake and Output: 03/27/18 03/27/18 06:59 18:59 Intake Total 990 Balance 990 - Medications Medications: Current Medications Albuterol/Ipratropium (Duoneb 3 Mg/0.5 Mg (3 Ml) Ud) 3 ml INH RQ4 [facility] Last Admin: 03/27/18 13:51 Dose: 3 ml Bupropion HCl (Wellbutrin Xl) 300 mg PO DAILY [facility] Last Admin: 03/27/18 10:17 Dose: 300 mg Carvedilol (Coreg) 25 mg PO BID [facility] Last Admin: 03/27/18 10:18 Dose: 25 mg Diazepam (Valium) 10 mg PO DAILY [facility] Last Admin: 03/27/18 10:18 Dose: 10 mg Digoxin (Digoxin) 0.125 mg PO DAILY@1800 [facility] Last Admin: 03/26/18 17:46 Dose: Not Given Docusate Sodium (Colace) 100 mg PO TID [facility] Last Admin: 03/27/18 13:30 Dose: 100 mg Duloxetine HCl (Cymbalta) 60 mg PO BID [facility] Last Admin: 03/27/18 10:18 Dose: 60 mg Ergocalciferol (Drisdol 50,000 Intl Units Cap) 1 cap PO Q7D [facility] Last Admin: 03/24/18 11:13 Dose: 1 cap Famotidine (Pepcid) 20 mg PO DAILY [facility] Last Admin: 03/27/18 10:18 Dose: 20 mg Finasteride (Proscar) 5 mg PO DAILY [facility] Last Admin: 03/27/18 10:18 Dose: 5 mg Furosemide (Lasix) 40 mg PO DAILY [facility] Last Admin: 03/27/18 10:19 Dose: 40 mg Azithromycin 500 mg/ Sodium (Chloride) 250 mls @ 250 mls/hr IVPB DAILY [facility] PRN Reason: Protocol Last Admin: 03/27/18 10:20 Dose: 250 mls/hr Ceftriaxone Sodium 1 gm/ (Sodium Chloride) 100 mls @ 200 mls/hr IVPB Q24H [facility] PRN Reason: Protocol Last Admin: 03/27/18 12:05 Dose: 200 mls/hr Insulin Human Regular (Novolin R) 0 unit SC ACHS [facility] PRN Reason: Protocol Last Admin: 03/27/18 12:00 Dose: 8 unit Metformin HCl (Glucophage) 850 mg PO BID [facility] Last Admin: 03/27/18 10:17 Dose: 850 mg Methylprednisolone (Solu-Medrol) 40 mg IVP Q8 [facility] Last Admin: 03/27/18 13:30 Dose: 40 mg Morphine Sulfate (Morphine Extended Release Tab) 60 mg PO Q12H [facility] Last Admin: 03/27/18 10:54 Dose: 60 mg Oxycodone HCl (Oxycodone Immediate Release Tab) 10 mg PO BID PRN PRN Reason: Pain, moderate (4-7) Last Admin: 03/26/18 21:51 Dose: 10 mg Oxycodone HCl (Oxycodone Immediate Release Tab) 15 mg PO Q4 [facility] Pantoprazole Sodium (Protonix Ec Tab) 20 mg PO DAILY [facility] Last Admin: 03/27/18 10:18 Dose: 20 mg Pregabalin (Lyrica) 225 mg PO QID [facility] Last Admin: 03/27/18 13:30 Dose: 225 mg Rivaroxaban (Xarelto) 20 mg PO DAILY [facility] Last Admin: 03/27/18 10:18 Dose: 20 mg Rosuvastatin Calcium (Crestor) 10 mg PO HS [facility] Last Admin: 03/26/18 21:49 Dose: 10 mg Spironolactone (Aldactone) 25 mg PO DAILY [facility] Last Admin: 03/27/18 10:17 Dose: 25 mg Tamsulosin HCl (Flomax) 0.4 mg PO DAILY [facility] Last Admin: 03/27/18 10:18 Dose: 0.4 mg - Labs Labs: 03/27/18 07:25 03/27/18 07:25 - Constitutional Appears: Well - Head Exam Head Exam: ATRAUMATIC, NORMAL INSPECTION, NORMOCEPHALIC - Eye Exam Eye Exam: EOMI, Normal appearance, PERRL Pupil Exam: NORMAL ACCOMODATION, PERRL - ENT Exam ENT Exam: Mucous Membranes Moist, Normal Exam - Neck Exam Neck Exam: Full ROM, Normal Inspection. absent: Lymphadenopathy - Respiratory Exam Respiratory Exam: Decreased Breath Sounds - Cardiovascular Exam Cardiovascular Exam: REGULAR RHYTHM, +S1, +S2 - GI/Abdominal Exam GI & Abdominal Exam: Soft, Diminished Bowel Sounds - Rectal Exam Rectal Exam: Deferred
--- NOTE | 2018-03-27 16:49 | CP.PCM.PN ---
Subjective - Date & Time of Evaluation Date of Evaluation: 04/01/18 Time of Evaluation: 06:00 - Subjective Subjective: seen on rounds orders signed Objective - Vital Signs/Intake and Output Vital Signs (last 24 hours): Temp Pulse Resp BP Pulse Ox 98.8 F 69 20 150/72 95 03/27/18 07:00 03/27/18 07:00 03/27/18 07:00 03/27/18 10:19 03/27/18 07:00 Intake and Output: 03/27/18 03/27/18 06:59 18:59 Intake Total 990 Balance 990 - Medications Medications: Current Medications Albuterol/Ipratropium (Duoneb 3 Mg/0.5 Mg (3 Ml) Ud) 3 ml INH RQ4 [facility] Last Admin: 03/27/18 13:51 Dose: 3 ml Bupropion HCl (Wellbutrin Xl) 300 mg PO DAILY [facility] Last Admin: 03/27/18 10:17 Dose: 300 mg Carvedilol (Coreg) 25 mg PO BID [facility] Last Admin: 03/27/18 10:18 Dose: 25 mg Diazepam (Valium) 10 mg PO DAILY [facility] Last Admin: 03/27/18 10:18 Dose: 10 mg Digoxin (Digoxin) 0.125 mg PO DAILY@1800 [facility] Last Admin: 03/26/18 17:46 Dose: Not Given Docusate Sodium (Colace) 100 mg PO TID [facility] Last Admin: 03/27/18 13:30 Dose: 100 mg Duloxetine HCl (Cymbalta) 60 mg PO BID [facility] Last Admin: 03/27/18 10:18 Dose: 60 mg Ergocalciferol (Drisdol 50,000 Intl Units Cap) 1 cap PO Q7D [facility] Last Admin: 03/24/18 11:13 Dose: 1 cap Famotidine (Pepcid) 20 mg PO DAILY [facility] Last Admin: 03/27/18 10:18 Dose: 20 mg Finasteride (Proscar) 5 mg PO DAILY [facility] Last Admin: 03/27/18 10:18 Dose: 5 mg Furosemide (Lasix) 40 mg PO DAILY [facility] Last Admin: 03/27/18 10:19 Dose: 40 mg Azithromycin 500 mg/ Sodium (Chloride) 250 mls @ 250 mls/hr IVPB DAILY [facility] PRN Reason: Protocol Last Admin: 03/27/18 10:20 Dose: 250 mls/hr Ceftriaxone Sodium 1 gm/ (Sodium Chloride) 100 mls @ 200 mls/hr IVPB Q24H [facility] PRN Reason: Protocol Last Admin: 03/27/18 12:05 Dose: 200 mls/hr Insulin Human Regular (Novolin R) 0 unit SC ACHS [facility] PRN Reason: Protocol Last Admin: 03/27/18 12:00 Dose: 8 unit Metformin HCl (Glucophage) 850 mg PO BID [facility] Last Admin: 03/27/18 10:17 Dose: 850 mg Methylprednisolone (Solu-Medrol) 40 mg IVP Q8 [facility] Last Admin: 03/27/18 13:30 Dose: 40 mg Morphine Sulfate (Morphine Extended Release Tab) 60 mg PO Q12H [facility] Last Admin: 03/27/18 10:54 Dose: 60 mg Oxycodone HCl (Oxycodone Immediate Release Tab) 10 mg PO BID PRN PRN Reason: Pain, moderate (4-7) Last Admin: 03/26/18 21:51 Dose: 10 mg Oxycodone HCl (Oxycodone Immediate Release Tab) 15 mg PO Q4 [facility] Pantoprazole Sodium (Protonix Ec Tab) 20 mg PO DAILY [facility] Last Admin: 03/27/18 10:18 Dose: 20 mg Pregabalin (Lyrica) 225 mg PO QID [facility] Last Admin: 03/27/18 13:30 Dose: 225 mg Rivaroxaban (Xarelto) 20 mg PO DAILY [facility] Last Admin: 03/27/18 10:18 Dose: 20 mg Rosuvastatin Calcium (Crestor) 10 mg PO HS [facility] Last Admin: 03/26/18 21:49 Dose: 10 mg Spironolactone (Aldactone) 25 mg PO DAILY [facility] Last Admin: 03/27/18 10:17 Dose: 25 mg Tamsulosin HCl (Flomax) 0.4 mg PO DAILY [facility] Last Admin: 03/27/18 10:18 Dose: 0.4 mg - Labs Labs: 03/27/18 07:25 03/27/18 07:25 - Constitutional Appears: Chronically Ill - Head Exam Head Exam: NORMOCEPHALIC - Eye Exam Eye Exam: absent: Scleral icterus - ENT Exam ENT Exam: Mucous Membranes Dry - Neck Exam Neck Exam: absent: Thyromegaly - Respiratory Exam Respiratory Exam: Decreased Breath Sounds - Cardiovascular Exam Cardiovascular Exam: REGULAR RHYTHM - GI/Abdominal Exam GI & Abdominal Exam: Distended - Rectal Exam Rectal Exam: Deferred - Exam Exam: NORMAL INSPECTION Assessment and Plan (1) Bacteremia Status: Acute (2) Pneumonia Status: Acute - Assessment and Plan (Free Text) Assessment: cont iv rx min 14 days cardio eval
[2018-03-27] MEDS: oxyCODONE 5 mg Immediate Release Tab PO SCH ×2 (17:00→22:00)
--- NOTE | 2018-03-27 17:51 | CARD ---
APPROVED REPORT EXAM: LIMITED Two-dimensional and M-mode echocardiogram color Doppler. Other Information Quality : GoodRhythm : INDICATION Infection:Rule out subacute bacterial endocarditis 2D DIMENSIONS IVSd1.2 (0.7-1.1cm)LVDd4.9 (3.9-5.9cm) PWd1.2 (0.7-1.1cm)LVDs3.4 (2.5-4.0cm) FS (%) 31.5 %LVEF (%)59.2 (>50%) Mitral Valve E/A ratio0.0 TDI E/Lateral E'0.0E/Medial E'0.0 LEFT VENTRICLE The left ventricle is normal size. There is normal left ventricular wall thickness. The left ventricular function is normal. The left ventricular ejection fraction is within the normal range. There is normal LV segmental wall motion. The left ventricular diastolic function is normal. RIGHT VENTRICLE The right ventricle is normal size. There is normal right ventricular wall thickness. ATRIA The left atrium size is normal. The right atrium size is normal. AORTIC VALVE The aortic valve is normal in structure. MITRAL VALVE The mitral valve is normal in structure. TRICUSPID VALVE The tricuspid valve is normal in structure. <Conclusion> Normal LV systoli cfunction. Normal chamber size. No significant valvular abnormalitry seeen. No definite vegetation see, consider DANILO if clinically indicated.
[2018-03-27] MEDS: Digoxin 125 mcg (0.125 mg) Tab PO SCH (18:54)
[2018-03-27 18:57] VITALS: PULSE 64
[2018-03-28] MEDS: (Novolin R) Insulin Human Regular 100 units/ml vial SC SCH ×3 (00:21→12:55)
[2018-03-28] MEDS: oxyCODONE 5 mg Immediate Release Tab PO SCH ×4 (00:26→12:55)
[2018-03-28] MEDS: Albuterol-Ipratrop 3 mg / 0.5 (3 ml) UD INH SCH ×4 (03:15→19:15)
[2018-03-28] MEDS: MethylPREDNISolone 40 mg Vial IVP SCH ×2 (06:14→14:46)
--- NOTE | 2018-03-28 10:23 | CP.PCM.PN ---
Subjective - Date & Time of Evaluation Date of Evaluation: 03/28/18 Time of Evaluation: 10:20 - Subjective Subjective: Pulmonary Evaluation Covering Dr. Scherer The patient was Seen/interviewed and examined by me at the bedside, Medical records reviewed and Management issues were discussed and formulated with the house staff. Events reviewed Patient lying in bed comfortably, n no acute distress. Patient states dyspnea on exertion improved since admission. Less SOB, [place], cough Patient did not experienced episodes of chest pain overnight. I&O reviewed Afebrile AM Labs reviewed, No Leucocytosis, mild elevated BUN Repeat Blood C/S 03/26 negative Denies chest pain, palpitation dysuria, flank tenderness PMHx: DM, HTN, CHF, A.Fib, previous episodes of pneumonia, COPD Objective - Vital Signs/Intake and Output Vital Signs (last 24 hours): Temp Pulse Resp BP Pulse Ox 98.2 F 57 L 16 150/78 95 03/28/18 09:24 03/28/18 09:24 03/28/18 09:24 03/28/18 09:24 03/27/18 23:44 Intake and Output: 03/28/18 03/28/18 06:59 18:59 Intake Total 300 300 Balance 300 300 - Medications Medications: Current Medications Albuterol/Ipratropium (Duoneb 3 Mg/0.5 Mg (3 Ml) Ud) 3 ml INH RQ4 [facility] Last Admin: 03/28/18 07:29 Dose: Not Given Bupropion HCl (Wellbutrin Xl) 300 mg PO DAILY [facility] Last Admin: 03/27/18 10:17 Dose: 300 mg Carvedilol (Coreg) 25 mg PO BID [facility] Last Admin: 03/27/18 18:53 Dose: 25 mg Diazepam (Valium) 10 mg PO DAILY [facility] Last Admin: 03/27/18 10:18 Dose: 10 mg Digoxin (Digoxin) 0.125 mg PO DAILY@1800 [facility] Last Admin: 03/27/18 18:54 Dose: 0.125 mg Docusate Sodium (Colace) 100 mg PO TID [facility] Last Admin: 03/27/18 18:54 Dose: 100 mg Duloxetine HCl (Cymbalta) 60 mg PO BID [facility] Last Admin: 03/27/18 18:53 Dose: 60 mg Ergocalciferol (Drisdol 50,000 Intl Units Cap) 1 cap PO Q7D [facility] Last Admin: 03/24/18 11:13 Dose: 1 cap Famotidine (Pepcid) 20 mg PO DAILY [facility] Last Admin: 03/27/18 10:18 Dose: 20 mg Finasteride (Proscar) 5 mg PO DAILY [facility] Last Admin: 03/27/18 10:18 Dose: 5 mg Furosemide (Lasix) 40 mg PO DAILY [facility] Last Admin: 03/27/18 10:19 Dose: 40 mg Azithromycin 500 mg/ Sodium (Chloride) 250 mls @ 250 mls/hr IVPB DAILY [facility] PRN Reason: Protocol Last Admin: 03/27/18 10:20 Dose: 250 mls/hr Ceftriaxone Sodium 1 gm/ (Sodium Chloride) 100 mls @ 200 mls/hr IVPB Q24H [facility] PRN Reason: Protocol Last Admin: 03/27/18 12:05 Dose: 200 mls/hr Insulin Human Regular (Novolin R) 0 unit SC ACHS [facility] PRN Reason: Protocol Last Admin: 03/28/18 08:19 Dose: 2 unit Metformin HCl (Glucophage) 850 mg PO BID [facility] Last Admin: 03/27/18 18:53 Dose: 850 mg Methylprednisolone (Solu-Medrol) 40 mg IVP Q8 [facility] Last Admin: 03/28/18 06:14 Dose: 40 mg Morphine Sulfate (Morphine Extended Release Tab) 60 mg PO Q12H [facility] Last Admin: 03/27/18 23:30 Dose: Not Given Oxycodone HCl (Oxycodone Immediate Release Tab) 15 mg PO Q4 [facility] Last Admin: 03/28/18 08:17 Dose: 15 mg Pantoprazole Sodium (Protonix Ec Tab) 20 mg PO DAILY [facility] Last Admin: 03/27/18 10:18 Dose: 20 mg Pregabalin (Lyrica) 225 mg PO QID [facility] Last Admin: 03/27/18 22:03 Dose: 225 mg Rivaroxaban (Xarelto) 20 mg PO DAILY [facility] Last Admin: 03/27/18 10:18 Dose: 20 mg Rosuvastatin Calcium (Crestor) 10 mg PO HS [facility] Last Admin: 03/27/18 22:00 Dose: 10 mg Spironolactone (Aldactone) 25 mg PO DAILY [facility] Last Admin: 03/27/18 10:17 Dose: 25 mg Tamsulosin HCl (Flomax) 0.4 mg PO DAILY [facility] Last Admin: 03/27/18 10:18 Dose: 0.4 mg - Labs Labs: 03/27/18 07:25 03/27/18 07:25 - Constitutional Appears: Well, No Acute Distress - Head Exam Head Exam: ATRAUMATIC, NORMAL INSPECTION - Eye Exam Eye Exam: EOMI, Normal appearance. absent: Conjunctival injection Pupil Exam: NORMAL ACCOMODATION, PERRL - Neck Exam Neck Exam: Full ROM, Normal Inspection. absent: Lymphadenopathy, Tenderness, Thyromegaly - Respiratory Exam Respiratory Exam: Decreased Breath Sounds, Prolonged Expiratory Phase, Wheezes. absent: Accessory Muscle Use, Chest Wall Tenderness, Clear to Ausculation Bilateral, Rales, Rhonchi, Respiratory Distress - Cardiovascular Exam Cardiovascular Exam: REGULAR RHYTHM, RRR, +S1, +S2. absent: Bradycardia, Tachycardia, JVD - GI/Abdominal Exam GI & Abdominal Exam: Soft. absent: Distended, Firm, Guarding, Rigid, Tenderness - Extremities Exam Extremities Exam: Full ROM, Normal Capillary Refill, Normal Inspection. absent : Calf Tenderness, Joint Swelling - Back Exam Back Exam: NORMAL INSPECTION. absent: CVA tenderness (L), CVA tenderness (R) - Neurological Exam Neurological Exam: Alert, Awake, CN II-XII Intact, Motor Sensory Deficit, Normal Gait, Oriented x3 Assessment and Plan (1) Bacteremia Status: Acute (2) Sepsis Status: Acute (3) Pneumonia Status: Acute (4) Chronic diastolic (congestive) heart failure Status: Acute (5) Prophylactic measure Status: Acute - Assessment and Plan (Free Text) Assessment: Clinically much improved Afebrile, Less Dyspnea, No chest pain Repeat Blood C/S 03/26 negative No Leucocytosis Continue Piperacillin/Tazobactam for total of 7 days Continue Solumedrol Continue nebulizer treatment Followup chest x-ray as outpatient Continue IV Lasix, Carvedilol , Dig, Crestor and Rivaroxaban Strict I&O, daily Wt Supplemental oxygen
[2018-03-28] MEDS: Pantoprazole 20 mg EC Tab PO SCH (10:54)
[2018-03-28] MEDS: Azithromycin 500 MG in Sodium Chloride 0.9% 250 ML IVPB SCH ×2 (10:55→12:33)
[2018-03-28] MEDS: buPROPion 150 mg/24 Hours XL Tab PO SCH (10:55)
--- NOTE | 2018-03-28 12:22 | CP.PCM.PN ---
Subjective - Date & Time of Evaluation Date of Evaluation: 03/28/18 Time of Evaluation: 07:40 - Subjective Subjective: clinically same Objective - Vital Signs/Intake and Output Vital Signs (last 24 hours): Temp Pulse Resp BP Pulse Ox 98.2 F 57 L 16 150/78 95 03/28/18 09:24 03/28/18 09:24 03/28/18 09:24 03/28/18 10:49 03/27/18 23:44 Intake and Output: 03/28/18 03/28/18 06:59 18:59 Intake Total 300 300 Balance 300 300 - Medications Medications: Current Medications Albuterol/Ipratropium (Duoneb 3 Mg/0.5 Mg (3 Ml) Ud) 3 ml INH RQ4 [facility] Last Admin: 03/28/18 10:59 Dose: Not Given Bupropion HCl (Wellbutrin Xl) 300 mg PO DAILY [facility] Last Admin: 03/28/18 10:55 Dose: 300 mg Carvedilol (Coreg) 25 mg PO BID [facility] Last Admin: 03/28/18 10:49 Dose: 25 mg Diazepam (Valium) 10 mg PO DAILY [facility] Last Admin: 03/28/18 10:53 Dose: 10 mg Digoxin (Digoxin) 0.125 mg PO DAILY@1800 [facility] Last Admin: 03/27/18 18:54 Dose: 0.125 mg Docusate Sodium (Colace) 100 mg PO TID [facility] Last Admin: 03/28/18 10:49 Dose: 100 mg Duloxetine HCl (Cymbalta) 60 mg PO BID [facility] Last Admin: 03/28/18 10:49 Dose: 60 mg Ergocalciferol (Drisdol 50,000 Intl Units Cap) 1 cap PO Q7D [facility] Last Admin: 03/24/18 11:13 Dose: 1 cap Famotidine (Pepcid) 20 mg PO DAILY [facility] Last Admin: 03/28/18 10:53 Dose: 20 mg Finasteride (Proscar) 5 mg PO DAILY [facility] Last Admin: 03/28/18 10:54 Dose: 5 mg Furosemide (Lasix) 40 mg PO DAILY [facility] Last Admin: 03/28/18 10:49 Dose: 40 mg Azithromycin 500 mg/ Sodium (Chloride) 250 mls @ 250 mls/hr IVPB DAILY [facility] PRN Reason: Protocol Last Admin: 03/28/18 10:55 Dose: Not Given Ceftriaxone Sodium 1 gm/ (Sodium Chloride) 100 mls @ 200 mls/hr IVPB Q24H [facility] PRN Reason: Protocol Last Admin: 03/27/18 12:05 Dose: 200 mls/hr Insulin Human Regular (Novolin R) 0 unit SC ACHS [facility] PRN Reason: Protocol Last Admin: 03/28/18 08:19 Dose: 2 unit Metformin HCl (Glucophage) 850 mg PO BID [facility] Last Admin: 03/28/18 10:54 Dose: 850 mg Methylprednisolone (Solu-Medrol) 40 mg IVP Q8 [facility] Last Admin: 03/28/18 06:14 Dose: 40 mg Oxycodone HCl (Oxycodone Immediate Release Tab) 15 mg PO Q4 [facility] Last Admin: 03/28/18 08:17 Dose: 15 mg Pantoprazole Sodium (Protonix Ec Tab) 20 mg PO DAILY [facility] Last Admin: 03/28/18 10:54 Dose: 20 mg Pregabalin (Lyrica) 225 mg PO QID [facility] Last Admin: 03/28/18 10:53 Dose: 225 mg Rivaroxaban (Xarelto) 20 mg PO DAILY [facility] Last Admin: 03/28/18 10:55 Dose: 20 mg Rosuvastatin Calcium (Crestor) 10 mg PO HS [facility] Last Admin: 03/27/18 22:00 Dose: 10 mg Spironolactone (Aldactone) 25 mg PO DAILY [facility] Last Admin: 03/28/18 10:49 Dose: 25 mg Tamsulosin HCl (Flomax) 0.4 mg PO DAILY [facility] Last Admin: 03/28/18 10:49 Dose: 0.4 mg - Labs Labs: 03/27/18 07:25 03/27/18 07:25 - Constitutional Appears: Well - Head Exam Head Exam: ATRAUMATIC, NORMAL INSPECTION, NORMOCEPHALIC - Eye Exam Eye Exam: EOMI, Normal appearance, PERRL Pupil Exam: NORMAL ACCOMODATION, PERRL - ENT Exam ENT Exam: Mucous Membranes Moist, Normal Exam - Neck Exam Neck Exam: Full ROM, Normal Inspection. absent: Lymphadenopathy - Respiratory Exam Respiratory Exam: Decreased Breath Sounds - Cardiovascular Exam Cardiovascular Exam: REGULAR RHYTHM, +S1, +S2 - GI/Abdominal Exam GI & Abdominal Exam: Soft, Diminished Bowel Sounds - Rectal Exam Rectal Exam: Deferred
[2018-03-28] MEDS: Morphine 30 mg SR Tab PO SCH (12:44)
--- NOTE | 2018-03-28 14:30 | CP.PCM.PN ---
Subjective - Date & Time of Evaluation Date of Evaluation: 03/28/18 Time of Evaluation: 14:27 - Subjective Subjective: Events reviewed Objective - Vital Signs/Intake and Output Vital Signs (last 24 hours): Temp Pulse Resp BP Pulse Ox 98.2 F 57 L 16 150/78 95 03/28/18 09:24 03/28/18 09:24 03/28/18 09:24 03/28/18 10:49 03/27/18 23:44 Intake and Output: 03/28/18 03/28/18 06:59 18:59 Intake Total 300 300 Balance 300 300 - Medications Medications: Current Medications Albuterol/Ipratropium (Duoneb 3 Mg/0.5 Mg (3 Ml) Ud) 3 ml INH RQ4 [facility] Last Admin: 03/28/18 10:59 Dose: Not Given Bupropion HCl (Wellbutrin Xl) 300 mg PO DAILY [facility] Last Admin: 03/28/18 10:55 Dose: 300 mg Carvedilol (Coreg) 25 mg PO BID [facility] Last Admin: 03/28/18 10:49 Dose: 25 mg Diazepam (Valium) 10 mg PO DAILY [facility] Last Admin: 03/28/18 10:53 Dose: 10 mg Digoxin (Digoxin) 0.125 mg PO DAILY@1800 [facility] Last Admin: 03/27/18 18:54 Dose: 0.125 mg Docusate Sodium (Colace) 100 mg PO TID [facility] Last Admin: 03/28/18 10:49 Dose: 100 mg Duloxetine HCl (Cymbalta) 60 mg PO BID [facility] Last Admin: 03/28/18 10:49 Dose: 60 mg Ergocalciferol (Drisdol 50,000 Intl Units Cap) 1 cap PO Q7D [facility] Last Admin: 03/24/18 11:13 Dose: 1 cap Famotidine (Pepcid) 20 mg PO DAILY [facility] Last Admin: 03/28/18 10:53 Dose: 20 mg Finasteride (Proscar) 5 mg PO DAILY [facility] Last Admin: 03/28/18 10:54 Dose: 5 mg Furosemide (Lasix) 40 mg PO DAILY [facility] Last Admin: 03/28/18 10:49 Dose: 40 mg Azithromycin 500 mg/ Sodium (Chloride) 250 mls @ 250 mls/hr IVPB DAILY [facility] PRN Reason: Protocol Last Admin: 03/28/18 12:33 Dose: 250 mls/hr Ceftriaxone Sodium 1 gm/ (Sodium Chloride) 100 mls @ 200 mls/hr IVPB Q24H [facility] PRN Reason: Protocol Last Admin: 03/28/18 12:56 Dose: 200 mls/hr Insulin Human Regular (Novolin R) 0 unit SC ACHS [facility] PRN Reason: Protocol Last Admin: 03/28/18 12:55 Dose: 6 unit Metformin HCl (Glucophage) 850 mg PO BID [facility] Last Admin: 03/28/18 10:54 Dose: 850 mg Methylprednisolone (Solu-Medrol) 40 mg IVP Q8 [facility] Last Admin: 03/28/18 06:14 Dose: 40 mg Oxycodone HCl (Oxycodone Immediate Release Tab) 15 mg PO Q4 [facility] Last Admin: 03/28/18 12:55 Dose: 15 mg Pantoprazole Sodium (Protonix Ec Tab) 20 mg PO DAILY [facility] Last Admin: 03/28/18 10:54 Dose: 20 mg Pregabalin (Lyrica) 225 mg PO QID [facility] Last Admin: 03/28/18 10:53 Dose: 225 mg Rivaroxaban (Xarelto) 20 mg PO DAILY [facility] Last Admin: 03/28/18 10:55 Dose: 20 mg Rosuvastatin Calcium (Crestor) 10 mg PO HS [facility] Last Admin: 03/27/18 22:00 Dose: 10 mg Spironolactone (Aldactone) 25 mg PO DAILY [facility] Last Admin: 03/28/18 10:49 Dose: 25 mg Tamsulosin HCl (Flomax) 0.4 mg PO DAILY [facility] Last Admin: 03/28/18 10:49 Dose: 0.4 mg - Labs Labs: 03/27/18 07:25 03/27/18 07:25 - Constitutional Appears: Well, Non-toxic - Respiratory Exam Respiratory Exam: Wheezes, NORMAL BREATHING PATTERN - Cardiovascular Exam Cardiovascular Exam: REGULAR RHYTHM, RRR, +S1, +S2, Murmur. absent: JVD Additional comments: Trace LE edema - GI/Abdominal Exam GI & Abdominal Exam: Normal Bowel Sounds. absent: Organomegaly Assessment and Plan - Assessment and Plan (Free Text) Assessment: 2D echo images viewed by myself. No evidence of vegitations, normal LV systolic function 68 y/o + PNA, + blood cx's, + UTI * Chronic diastolic dysfunction * parox AFIB * HTN * DM * Recent R. Knee TKR > Echo 01/20/18: Normal EF, LVH, diastolic dysfunction > EK03/23/18: NSR, no ischemic changes Cardiac Meds: Carvedilol (Coreg) 25 mg PO BID [facility] Digoxin (Digoxin) 0.125 mg PO DAILY@1800 [facility] Furosemide (Lasix) 40 mg PO DAILY [facility] Rivaroxaban (Xarelto) 20 mg PO DAILY [facility] Rosuvastatin Calcium (Crestor) 10 mg PO HS [facility] Spironolactone (Aldactone) 25 mg PO DAILY [facility] PLAN: Add diovan 160 for added BP control Increase lasix to 40IV BID for better diuresis f/u echo: if suspicious findings will consider DANILO either as in patient or outpatient: suggest continued ABX as directed by growth and suseptibility: and will decided timing based on proposed imaging.
[2018-03-28 15:43] VITALS: BP 135/75; PULSE 69; RESP 20; TEMP 98.3; O2SAT 90
--- NOTE | 2018-03-28 16:48 | CP.PCM.PN ---
Subjective - Date & Time of Evaluation Date of Evaluation: 03/28/18 Time of Evaluation: 11:00 - Subjective Subjective: Alert, oriented, very frustrated, no acute distress. Objective - Vital Signs/Intake and Output Vital Signs (last 24 hours): Temp Pulse Resp BP Pulse Ox 98.3 F 69 20 135/75 90 L 03/28/18 15:26 03/28/18 15:26 03/28/18 15:26 03/28/18 15:26 03/28/18 15:26 Intake and Output: 03/28/18 03/28/18 06:59 18:59 Intake Total 300 900 Balance 300 900 - Medications Medications: Current Medications Albuterol/Ipratropium (Duoneb 3 Mg/0.5 Mg (3 Ml) Ud) 3 ml INH RQ4 [facility] Last Admin: 03/28/18 10:59 Dose: Not Given Bupropion HCl (Wellbutrin Xl) 300 mg PO DAILY [facility] Last Admin: 03/28/18 10:55 Dose: 300 mg Carvedilol (Coreg) 25 mg PO BID [facility] Last Admin: 03/28/18 10:49 Dose: 25 mg Diazepam (Valium) 10 mg PO DAILY [facility] Last Admin: 03/28/18 10:53 Dose: 10 mg Digoxin (Digoxin) 0.125 mg PO DAILY@1800 [facility] Last Admin: 03/27/18 18:54 Dose: 0.125 mg Docusate Sodium (Colace) 100 mg PO TID [facility] Last Admin: 03/28/18 14:48 Dose: Not Given Duloxetine HCl (Cymbalta) 60 mg PO BID [facility] Last Admin: 03/28/18 10:49 Dose: 60 mg Ergocalciferol (Drisdol 50,000 Intl Units Cap) 1 cap PO Q7D [facility] Last Admin: 03/24/18 11:13 Dose: 1 cap Famotidine (Pepcid) 20 mg PO DAILY [facility] Last Admin: 03/28/18 10:53 Dose: 20 mg Finasteride (Proscar) 5 mg PO DAILY [facility] Last Admin: 03/28/18 10:54 Dose: 5 mg Furosemide (Lasix) 40 mg PO DAILY [facility] Last Admin: 03/28/18 10:49 Dose: 40 mg Azithromycin 500 mg/ Sodium (Chloride) 250 mls @ 250 mls/hr IVPB DAILY [facility] PRN Reason: Protocol Last Admin: 03/28/18 12:33 Dose: 250 mls/hr Ceftriaxone Sodium 1 gm/ (Sodium Chloride) 100 mls @ 200 mls/hr IVPB Q24H [facility] PRN Reason: Protocol Last Admin: 03/28/18 12:56 Dose: 200 mls/hr Insulin Human Regular (Novolin R) 0 unit SC ACHS [facility] PRN Reason: Protocol Last Admin: 03/28/18 12:55 Dose: 6 unit Metformin HCl (Glucophage) 850 mg PO BID [facility] Last Admin: 03/28/18 10:54 Dose: 850 mg Methylprednisolone (Solu-Medrol) 40 mg IVP Q8 [facility] Last Admin: 03/28/18 14:46 Dose: 40 mg Oxycodone HCl (Oxycodone Immediate Release Tab) 15 mg PO Q4 [facility] Last Admin: 03/28/18 12:55 Dose: 15 mg Pantoprazole Sodium (Protonix Ec Tab) 20 mg PO DAILY [facility] Last Admin: 03/28/18 10:54 Dose: 20 mg Pregabalin (Lyrica) 225 mg PO QID [facility] Last Admin: 03/28/18 14:45 Dose: 225 mg Rivaroxaban (Xarelto) 20 mg PO DAILY [facility] Last Admin: 03/28/18 10:55 Dose: 20 mg Rosuvastatin Calcium (Crestor) 10 mg PO HS [facility] Last Admin: 03/27/18 22:00 Dose: 10 mg Spironolactone (Aldactone) 25 mg PO DAILY [facility] Last Admin: 03/28/18 10:49 Dose: 25 mg Tamsulosin HCl (Flomax) 0.4 mg PO DAILY [facility] Last Admin: 03/28/18 10:49 Dose: 0.4 mg - Labs Labs: 03/27/18 07:25 03/27/18 07:25 Assessment and Plan - Assessment and Plan (Free Text) Assessment: Patient admitted with pneumonia , knee pain, seen and examined. Very agitated on and off that he wants to get out of here. Denies sob or chest pains, no acute distress. Arranged to go to [facility] today and the patient in agreement. Heplock was re-inserted and was discharged as per DR Gumaro Marcos for IV rocephine for 10 days more to complete [address] Garcia for bacterimia.
--- NOTE | 2018-03-31 17:56 | PCM.HF ---
Heart Failure Core Measure - Heart Failure Ejection Fraction: 40 % or Greater JOSH Inhibitor Prescribed: No Contraindication/Reason for not providing: CKD Beta-Jeni Prescribed: Carvedilol Angiotensin II Receptor Jeni Prescribed: No Contraindication/Reason for not providing: CKD AnticoagulationTherapy for Atrial Fibrillation/Atrialflutter: Yes Aldosterone Antagonist Prescribed: Yes Hydralazine Nitrate Prescribed: No Contraindication/Reason for not providing: EF >40% Implantable Cardioverter Defibrillator Therapy: No Contraindication/Reason for not providing: EF >40% Cardiac Resynchronization Therapy Prescribed: No Contraindication/Reason for not providing: not indicated - Follow up Will be discharged to: [facility]
== END 2018-03-28 18:50 | DRG 194 ==
LOC: C.ER 13:38 → C.9E 17:18 → C.3T 17:18
PROVIDERS: ADMIT Internal Medicine Nephrology; ATTEND Internal Medicine Nephrology
DX: J18.9 Pneumonia, unspecified organism (principal); N39.0 Urinary tract infection, site not specified; J44.0 Chronic obstructive pulmonary disease with (acute) lower respiratory infection; I50.32 Chronic diastolic (congestive) heart failure; I42.9 Cardiomyopathy, unspecified; M00.9 Pyogenic arthritis, unspecified; N40.0 Benign prostatic hyperplasia without lower urinary tract symptoms; R29.6 Repeated falls; I11.0 Hypertensive heart disease with heart failure; F41.9 Anxiety disorder, unspecified; F32.9 Major depressive disorder, single episode, unspecified; E11.40 Type 2 diabetes mellitus with diabetic neuropathy, unspecified; I48.0 Paroxysmal atrial fibrillation; Z96.651 Presence of right artificial knee joint; Z79.891 Long term (current) use of opiate analgesic; Z79.01 Long term (current) use of anticoagulants; M16.10 Unilateral primary osteoarthritis, unspecified hip; K21.9 Gastro-esophageal reflux disease without esophagitis; M25.562 Pain in left knee